=== PATIENT | female | born 1965 | race Caucasian/White ===

== ENCOUNTER → 2017-08-13 06:53 | Outpatient (CLI) | payer OTHER, SELFPAY ==
--- NOTE | 2017-08-13 06:59 | BI_ITS ---
MAMMOGRAPHY - BILATERAL SCREENING REASON FOR EXAM: Female, 52 years old. Routine annual screening examination. PERTINENT HISTORY: Non-contributory. TECHNIQUE: Digital bilateral breast gen (3D mammographic acquisition) in the CC and MLO projections. 2-D mediolateral oblique (MLO) and craniocaudad (CC) views of both breasts were obtained. CAD: Full Field Digital Mammography with Computer Added Detection was performed. COMPARISON: Comparison is made with prior study dated April 06, 2016 and August 08, 2014. FINDINGS: Breast Composition: There are scattered areas of fibroglandular density. There are no dominant masses or suspicious calcifications. No other significant abnormalities are identified. There has been no significant change since the prior study. BI/SCREENING MAMM (CAD), BILAT IMPRESSION: Stable bilateral screening mammogram. Yearly follow-up mammogram recommended. (A) ASSESSMENT CATEGORY: BIRADS Category 1: Negative. A letter regarding these results will be sent to the patient by the facility within 30 days. Approximately 10% of breast cancers are not detected by mammography. A normal mammogram should not delay biopsy of a clinically suspicious abnormality. [id number] Electronically Signed: Immanuel Evans MD at 7:47 EDT Tel [phone], Service support ,
== END ==
PROVIDERS: Family Provider Family Medicine; PCP Family Medicine; Visit Provider Obstetrics & Gynecology
DX: Z12.31 Encounter for screening mammogram for malignant neoplasm of breast (principal)
CPT/HCPCS: 77063; 77067

== ENCOUNTER 2017-11-16 15:54 | Emergency (ER) | payer OTHER, SELFPAY ==
[2017-11-16 15:54] VITALS: BP 161/70; PULSE 74; RESP 20; TEMP 36.9; O2SAT 100; BMI 38.0
[2017-11-16 16:33] VITALS: BP 141/74; PULSE 67; RESP 16; O2SAT 100
--- NOTE | 2017-11-16 16:43 | RAD_ITS ---
STUDY: X-RAY - RIGHT KNEE REASON FOR EXAM: Female, 52 years old. Fall, pain. TECHNIQUE: 4 view(s) of the knee. COMPARISON: 3 views of the right knee April 28, 2016. FINDINGS: There is periarticular spurring of the femoral condyles. There is stable mild spurring of the tibial spines and tibial plateaus. Normal visualized proximal fibula. There is stable periarticular spurring of the patella. A sagittal, chronic appearing fracture line is seen to the mid body of the patella, with a few millimeters of distraction between the fracture fragments. There may be a second longitudinal fracture line through the medial aspect of the patella, also with mild distraction. There is a stable mild degenerative valgus deformity is stable mild lateral subluxation of the tibia relative to the femur. Normal medial femorotibial compartment. Normal lateral femorotibial compartment. There is stable moderately severe degenerative arthrosis of the patellofemoral articulation. There is a soft tissue prominence in the suprapatellar region suggesting a small volume joint effusion. There is minor prepatellar superficial soft tissue swelling. RAD/Knee 4 or More Views IMPRESSION: 1. Degenerative changes of the right knee again noted, most prominent in the femoropatellar compartment. There is also stable mild lateral subluxation of the tibia relative to the femur and a mild degenerative valgus deformity. 2. There are chronic appearing mildly distracted longitudinal fracture lines through the mid body and medial aspect of the patella, best seen on the sunrise view 3. Small suprapatellar joint effusion as well as mild superficial prepatellar soft tissue swelling suggested Electronically Signed: Arpit Domínguez MD at 17:45 EDT , Service support ,
--- NOTE | 2017-11-16 16:59 | RAD_ITS ---
STUDY: X-RAY - RIGHT ANKLE REASON FOR EXAM: Female, 52 years old. Injury and pain TECHNIQUE: Three view(s) of the ankle were obtained. COMPARISON: May 01, 2016 FINDINGS: Bones: There is cortical disruption in the medial malleolus. A plate and screws are again seen over the distal fibula. There is a small spur off the inferior calcaneus. Joints: The visualized joints are unremarkable. Soft tissues: There is moderate soft tissue swelling medially. There is minimal soft tissue swelling laterally. RAD/Ankle min 3 Views IMPRESSION: There is an acute nondisplaced fracture in the medial malleolus. Electronically Signed: Gemma Teran MD at 17:53 EDT Tel Direct: [phone], Service support ,
--- NOTE | 2017-11-16 17:09 | ED.DCSUM_ITS ---
- ER Visit Summary Date of Service: 11/16/17 Chief Complaint: Right ankle pain History of Present Illness: The patient is a 52 F presenting after fall. Patient states that she rolled her right ankle and fell to the ground. She did not hit her head or lose consciousness. She complains of right ankle and right knee pain. She denies other injuries. Physical Examination: Vitals are stable. Patient is afebrile. Alert no acute distress. HEENT exam is unremarkable. Lungs are clear and equal bilaterally. Heart is regular rate and rhythm. Extremities medial and lateral malleolar tenderness, swelling. No Achilles tendon tenderness. No fifth metatarsal tenderness. Right medial knee tenderness with active full range of motion. Skin is warm and dry. No focal neurologic deficit. Remainder of exam is unremarkable. Emergency Department Course and Treatment: Right knee xray shows degenerative changes of the right knee again noted, most prominent in the femoropatellar compartment. There is also stable mild lateral subluxation of the tibia relative to the femur and a mild degenerative valgus deformity. There are chronic appearing mildly distracted longitudinal fracture lines through the mid body and medial aspect of the patella, best seen on the sunrise view. Small suprapatellar joint effusion as well as mild superficial prepatellar soft tissue swelling suggested. Right ankle xray shows an acute nondisplaced fracture in the medial malleolus. Patient is put in an Ortho-Glass splint. She is advised nonweightbearing and given crutches. She is given a prescription for Lowber. She is discussed with Dr. Murry and will follow-up in his office. Advised to return to ED for worsening complaints. Disposition: Discharge home Impression: Right medial malleolar fracture status post fall This note was generated with [employer] dictation software. It may contain incorrect words, spelling, and punctuation that were not noted in review of the chart prior to signing ED Disposition - Plan for ED Patient: Chief Complaint: Lower Extremity Injury Referrals: Tre Kim [Primary Care Provider] -
[2017-11-16] MEDS: HYDROcodone Bitartrate/Apap 5/325 Tablet PO (18:08)
--- NOTE | 2017-11-16 19:09 | ED.DEP ---
ED Disposition - Plan for ED Patient: Chief Complaint: Lower Extremity Injury Instructions: ED Fx Ankle General Prescriptions: Hydrocodone Bitart/Apap 5-325 [Zenia 5MG-325MG] 1 tablet PO Q6H PRN PRN 3 Days #10 tablet PRN Reason: Pain Referrals: Tre Kim [Primary Care Provider] - Donato Murry MD [STAFF PHYSICIAN] -
--- NOTE | 2017-11-16 19:11 | DCINST.ED_ITS ---
ED Disposition - Plan for ED Patient: Chief Complaint: Lower Extremity Injury Instructions: ED Fx Ankle General Prescriptions: Hydrocodone Bitart/Apap 5-325 [Watrous 5MG-325MG] 1 tablet PO Q6H PRN PRN 3 Days # 10 tablet PRN Reason: Pain Referrals: Tre Kim [Primary Care Provider] - Donato Murry MD [STAFF PHYSICIAN] -
[2017-11-16 19:31] VITALS: BP 146/97; PULSE 92; RESP 14; O2SAT 96
== END 2017-11-16 19:33 | disposition home or self-care (01) ==
LOC: ED 19:14
PROVIDERS: Emergency Provider Emergency Medicine; Family Provider Family Medicine; PCP Family Medicine
DX: S82.51XA Displaced fracture of medial malleolus of right tibia, initial encounter for closed fracture (principal); X50.1XXA Overexertion from prolonged static or awkward postures, initial encounter; Y93.9 Activity, unspecified; Y92.9 Unspecified place or not applicable; Y99.9 Unspecified external cause status
CPT/HCPCS: 73564; 73610; 99283

== ENCOUNTER → 2018-01-09 06:32 | Outpatient (CLI) | payer OTHER, SELFPAY ==
--- NOTE | 2018-01-09 06:43 | MRI_ITS ---
STUDY: MRI RIGHT KNEE REASON FOR EXAM: Anterior knee pain and swelling, fall 2 months ago. TECHNIQUE: Standardized fat and water weighted pulse sequences were obtained in all 3 orthogonal planes. COMPARISON: Radiographs 11/16/2017. FINDINGS: Normal medial meniscus. Normal hyaline cartilage of the medial femorotibial compartment. There are small marginal osteophytes of the medial femorotibial compartment. Normal medial femoral condyle and tibial plateau. Normal medial collateral ligamentous complex (MCL). Normal distal semimembranosus, gracilis and semitendinosus tendons. Normal lateral meniscus. Normal hyaline cartilage of the lateral femorotibial compartment. There is a bone contusion of the lateral femoral condyle (T2 sagittal images 6-9). Normal proximal tibiofibular articulation. Normal lateral collateral (fibular) ligament. Normal popliteus tendon. Normal biceps femoris tendon. Normal anterior cruciate ligament (ACL). Normal posterior cruciate ligament (PCL). There is lateral subluxation of the patella (T2 axial image 11). There is advanced arthrosis of the patellofemoral compartment with marginal osteophytes, chondral loss (T2 sagittal image 7) and subchondral cystic change of the lateral femoral trochlea. There is postoperative scarring of the medial patellar retinaculum and ossification at the medial aspect of the patella (proton density coronal images 26-28). Normal quadriceps tendon. Normal patellar tendon. Normal Hoffa's fat pad. There is a small joint effusion. There is a very small popliteal cyst (T2 sagittal image 17). There is edema in the anterior subcutis adipose space. There is a nondisplaced fracture of the patella with bone edema (T2 coronal images 25-27; T2 axial images 8-13). There is a small bone contusion of the head of the fibula (T2 sagittal images 5, 6). MRI/Lower Ext Joint Only (Routine) IMPRESSION: Nondisplaced patellar fracture with bone edema. Bone contusion of the lateral femoral condyle and small bone contusion of the head of the fibula. Patellofemoral arthrosis. Lateral subluxation of the patella. Small joint effusion. Very small popliteal cyst. Postoperative changes of the medial patellar retinaculum and ossification adjacent to the medial aspect of the patella. Electronically Signed: Robert Lopez MD at 9:47 EST Tel , Service support ,
== END ==
PROVIDERS: Family Provider Family Medicine; PCP Family Medicine; Referring Provider Family Medicine; Visit Provider Family Medicine
DX: M23.91 Unspecified internal derangement of right knee (principal)
CPT/HCPCS: 73721

== ENCOUNTER → 2018-09-22 07:22 | Outpatient (CLI) | payer OTHER, SELFPAY ==
--- NOTE | 2018-09-22 07:26 | BI_ITS ---
MAMMOGRAPHY - BILATERAL SCREENING REASON FOR EXAM: Female, 53 years old. Routine annual screening examination. PERTINENT HISTORY: Non-contributory. TECHNIQUE: Digital bilateral breast aaron (3D mammographic acquisition) in the CC and MLO projections. 2-D mediolateral oblique (MLO) and craniocaudad (CC) views of both breasts were obtained. CAD: Full Field Digital Mammography with Computer Added Detection was performed. COMPARISON: Comparison is made with prior study dated August 13, 2017 and April 06, 2016. FINDINGS: Breast Composition: There are scattered areas of fibroglandular density. There are no dominant masses or suspicious calcifications. Stable small bilateral axillary lymph nodes. No other significant abnormalities are identified. There has been no significant change since the prior study. BI/SCREEN MAMM (CAD) W/AARON BILAT IMPRESSION: Stable bilateral screening mammogram. Yearly follow-up mammogram recommended. (A) ASSESSMENT CATEGORY: BIRADS Category 2: Benign. A letter regarding these results will be sent to the patient by the facility within 30 days. Approximately 10% of breast cancers are not detected by mammography. A normal mammogram should not delay biopsy of a clinically suspicious abnormality. [id number] Electronically Signed: Immanuel Evans, at 9:10 EDT , Service support ,
== END ==
PROVIDERS: Family Provider Family Medicine; PCP Family Medicine; Referring Provider Obstetrics & Gynecology; Visit Provider Obstetrics & Gynecology
DX: Z12.31 Encounter for screening mammogram for malignant neoplasm of breast (principal)
CPT/HCPCS: 77063; 77067

== ENCOUNTER → 2019-10-21 16:38 | Outpatient (CLI) | payer OTHER, SELFPAY ==
[2019-10-26 14:44] LABS: HPV APTIMA, High Risk Negative (Negative); HPV Reflexed? YES, CHARGE PATIENT
== END ==
PROVIDERS: PCP Family Medicine; Visit Provider Student in an Organized Health Care Education/Training Program
DX: Z12.4 Encounter for screening for malignant neoplasm of cervix (principal)
CPT/HCPCS: 87624; 88175; G0145

== ENCOUNTER → 2019-11-11 07:12 | Outpatient (CLI) | payer OTHER, SELFPAY ==
--- NOTE | 2019-11-11 07:14 | BI_ITS ---
MAMMOGRAPHY - BILATERAL SCREENING REASON FOR EXAM: Female, 54 years old. Routine annual screening examination. PERTINENT HISTORY: Non-contributory. TECHNIQUE: Digital bilateral breast aaron (3D mammographic acquisition) in the CC and MLO projections. 2-D mediolateral oblique (MLO) and craniocaudad (CC) views of both breasts were obtained. CAD: Full Field Digital Mammography with Computer Added Detection was performed. COMPARISON: Comparison is made with prior study dated 09/22/2018 and 08/13/2017. FINDINGS: Breast Composition: There are scattered areas of fibroglandular density. There are no dominant masses or suspicious calcifications. Stable small benign-appearing bilateral axillary lymph nodes. No other significant abnormalities are identified. There has been no significant change since the prior study. BI/SCREEN MAMM (CAD) W/AARON BILAT IMPRESSION: Stable bilateral screening mammogram. Yearly follow-up mammogram recommended. (A) ASSESSMENT CATEGORY: BIRADS Category 2: Benign. A letter regarding these results will be sent to the patient by the facility within 30 days. Approximately 10% of breast cancers are not detected by mammography. A normal mammogram should not delay biopsy of a clinically suspicious abnormality. [id number] Electronically Signed: Immanuel Evans, at 8:45 EDT , Service support ,
== END ==
PROVIDERS: PCP Family Medicine; Referring Provider Student in an Organized Health Care Education/Training Program; Visit Provider Student in an Organized Health Care Education/Training Program
DX: Z12.31 Encounter for screening mammogram for malignant neoplasm of breast (principal)
CPT/HCPCS: 77063; 77067

== ENCOUNTER → 2020-02-01 10:16 | Outpatient (CLI) | payer OTHER, SELFPAY | PROVIDERS: PCP Family Medicine; Visit Provider Family Medicine | DX: R39.15 Urgency of urination (principal) | CPT/HCPCS: 87077; 87086; 87088; 87186 ==

== ENCOUNTER → 2020-03-23 09:18 | Outpatient (CLI) | payer OTHER, SELFPAY | LOC: MFPLAB 09:19 → LABSPEC 09:20 | PROVIDERS: PCP Family Medicine; Referring Provider Family Medicine; Visit Provider Family Medicine | DX: N39.0 Urinary tract infection, site not specified (principal) | CPT/HCPCS: 87086; 87088 ==

== ENCOUNTER → 2020-05-16 10:44 | Outpatient (CLI) | payer OTHER, SELFPAY ==
[2020-05-16 12:07] LABS: Color, Urine Amber (Yellow); Glucose, Dipstick Normal (Normal); Ketone-Dipstick Negative (Negative); Leukocyte Esterase-Dipstick 25 /ul (Negative); Nitrite-Dipstick Positive (Negative); Occult Blood-Urine 250 /ul (Negative); Protein-Dipstick 30 mg/dl (Negative); Urine Clarity Sl. Cloudy (Clear); Urine Urobilinogen 12 mg/dl (Normal)
[2020-05-16 12:09] LABS: Urine Bilirubin Dipstick 6 mg/dL (Negative)
[2020-05-16 12:14] LABS: Red Blood Cells-Urine 10-25 SEEN /hpf (0-5); Squamous Epithelial Cells - UA 0-5 SEEN /hpf (5-10); White Blood Cells 0-5 SEEN /hpf (0-5)
[2020-05-16 12:15] LABS: Bacteria 1+ /hpf (None Seen); Mucous, Urine RARE /hpf (<or=2+)
== END ==
PROVIDERS: PCP Family Medicine; Visit Provider Family Medicine
DX: N39.0 Urinary tract infection, site not specified (principal)
CPT/HCPCS: 81001; 87086

== ENCOUNTER 2020-08-18 05:47 | Day surgery (SDC) | payer OTHER, SELFPAY ==
[2020-08-14 14:45] LABS: Hematocrit 39.8 % (37-47); Hemoglobin 12.7 g/dL (12.0-15.0); Mean Corp Hgb Conc 31.9 g/dL (32-36); Mean Corpuscular Hgb 27.5 pg (27.0-32.0); Mean Corpuscular Volume 86.3 fL (81-99); Mean Platelet Vol. 9.4 fl (6.2-12.0); Platelet Count 356 K/mm3 (150-450); RBC Distribution Width SD 43.8 fl (35.1-43.9); Red Blood Count 4.61 M/mm3 (4.2-5.4); White Blood Count 9.4 K/mm3 (4.4-11.0)
--- NOTE | 2020-08-17 18:21 | HP.PCM.OB_ITS ---
History and Physical Date of Admission: 08/18/20 HISTORY OF PRESENT ILLNESS: On 08/14/2020, Radha Naylor, a 55 year old female 1 0 0 0 1, presented for: hysteroscopy, dilation and curettage, polyectomy on 08-18-20 for postmenopausal bleeding, endometrial polyps. MEDICAL HISTORY: 1. Hypertension ALLERGIES: Bactrim, Skin rash, Bactrim, Skin irritation, Lamisil and Rash MEDICATIONS HISTORY: 1. mvi, adult no.1 with vit K 1-5-10-200 bu-kjq-iz-mg Solution, 1 po qd 2. lisinopril 20 mg tablet, One tablet by mouth once daily PAST HISTORY: Anemia, Rosacea, Hypertension SURGICAL HISTORY: 1. [place] Teeth Removal 2. 07/25/2016 rotator cuff surgery 3. 04/24/2016 right wrist 4. 04/24/2016 right ankle 5. 06/19/2016 ACL surgery right knee MENSTRUAL HISTORY: LMP Known?- Postmenopausal, LMP - 11/15/15, Age Onset Menarche - 10 PAST PREGNANCIES: Total Pregnancies - 1; Full Term Pregnancies - 1; Premature - 0; Abortions, Induced - 0; Abortions, Spontaneous - 0; Ectopics - 0; Multiple Births - 0; Living Children - 1 FAMILY HISTORY: Father - Heart disorder; Mother - FH: Hypertension; Aunt - Type 2 Diabetes; SOCIAL HISTORY: Alcohol Use - RARELY Smoking - denies smoking Drugs - denies REVIEW OF SYSTEMS: GENERAL - Denies fever, or chills SKIN - Denies skin changes EYES - Denies visual changes EARS - Denies difficulty hearing NOSE - Denies nasal congestion or bleeding MOUTH - Denies sore throat or difficulty swallowing NECK - Denies pain or swelling RESPIRATORY - Denies shortness of breath or wheezing CARDIOVASCULAR - Denies palpitations or chest pain GASTROINTESTINAL - Denies nausea, vomiting, diarrhea, constipation GENITOURINARY - PMB MUSCULOSKELETAL - Denies joint or muscle pain NEUROLOGICAL - Denies localized numbness or weakness PSYCHIATRIC - Denies depression or anxiety ENDOCRINE - Denies heat or cold intolerance, weight loss or gain HEMATO-IMMUNOLOGIC - Denies excesive bleeding with cuts BP- 148/88 Sitting, Right arm, large cuff Weight- 234.00 lbs Height- 63.50 inch BMI:40.89 CONSTITUTIONAL - NAD, well nourished, and well developed SKIN - No rash, lesions, or ulcers HEENT - Normocephalic, PERRLA, EOMI NECK - No nodes, no nuchal rigidity and thyroid normal size and texture LYMPH NODES - Palpation of lymph nodes in neck and groins within normal limits LUNGS - CTA x2 without wheezes, crackles or rales CARDIAC - Regular rate and rhythm without rubs, murmurs, or gallops ABDOMEN - Without hepatosplenomegaly, distention, masses, rebound, or guarding; normal bowel sounds; no hernias EXTREMITIES - No edema or calf tenderness NEUROLOGICAL - Cranial nerves II-XII grossly intact PSYCHIATRIC - A and O to time, place, person, mood and affect ASSESSMENT/PLAN BY DIAGNOSIS: 1. Postmenopausal Bleeding PMB after use of estradiol cream x2 (not last time) after starting about 7w ago.. US today thickened ES with possible 2 polyps. Cervix stenotic on exam, no other Due to thickness of ES and polyps. Will plan surgical managemtn. Hysteroscopy, D, polypectomy with symphion Risks include, but are not limited to: risk of bleeding to the point of transfusion, infection, injury to surrounding tissue including bowel/ bladder/uterine perforation, VTE, ICU admission. Pt consented, all questions answered
[2020-08-18 06:24] VITALS: BP 146/88; PULSE 65; RESP 18; TEMP 36.3; O2SAT 99; BMI 41.5
[2020-08-18] MEDS: Lactated Ringers 1,000 ML 100 ML IV (06:31)
--- NOTE | 2020-08-18 07:30 | EMB_PTH ---
PATIENT: MALICK IBRAHIM LOC: [facility] – [place] U#:[id number] AGE/SX: 55/F ROOM: RE08/18/[address]: Dr. Galina Jarrell DO : 1965 BED: DIS: 08/18/2020 SPEC #: [id number] RECD: 08/18/20 10:35 STATUS: ANDREA REEstrada #: [id number] KJ: 08/18/20 07:[address]: Galina Jarrell DEPT: SURGICAL PATHOLOGY RECD BY: Emmy Todd ENTERED: 08/18/20 11:01 SP TYPE: ENDOM BX/C ALON DR: Dr. Se Mott MD Tissues: Endometrium, NOS Procedures: Surgery Specimen Level IV HEADER OPERATION: Hysteroscopy, D & C, polypectomy, Symphion PRE-OP DIAGNOSIS: Postmenopausal bleeding TISSUE SUBMITTED: Endometrial curettings and polyp MICROSCOPIC DIAGNOSIS Endometrial curettings and polyp: Polypoid fragments of endometrium, may represent fragments of endometrial polyp with simple endometrial hyperplasia without atypia. Fragments of myometrium. SJ:rg 08/21/2020 COMMENT Case has been reviewed in consultation with Dr. Pugh who concurs with the above diagnosis. IDC:AM MICROSCOPIC DESCRIPTION Slides are reviewed. GROSS DESCRIPTION Received in fixative is one container labeled with the patient's name and designated endometrial curettings and polyp. The specimen consists of multiple irregular fragments of goodman-pink soft tissue that in aggregate measure 2.5 x 1.5 x 0.3 cm. The specimen is totally submitted in one cassette. / AMINA:john 08/18/20 TC:5 CPT: 49838
--- NOTE | 2020-08-18 07:33 | PCM.OPRPT ---
Report of Operation Date of Procedure: 08/18/20 Pre-Operative Diagnosis: Post menopausal bleeding, Endometrial polyp Post-Operative Diagnosis: Post menopausal bleeding, Endometrial polyp, cervical stenosis Surgery/Procedure Performed:: Hysteroscopy, cervical dilation, polypectomy with Symphion device Description of Surgical Findings:: Normal-appearing external genitalia. No uterine descensus. Cervix flush against the top of the vagina with cervical stenosis. Endometrial polyp originating the anterior endometrial wall. Bilateral tubal ostia noted. Type of Anesthesia: MAC Specimen's removed: endometrial polyp Estimated Blood Loss (mL): 10cc Fluids Replaced: 600cc Description of Procedure: Indications, risks and benefits: 55-year-old female with postmenopausal bleeding and endometrial polyp plan for hysteroscopy, dilation and curettage, polypectomy. All risk, benefits, alternatives discussed with the patient. Risks include but are not limited to: Risk of bleeding to the point of transfusion, infection, injury to surrounding tissue including bowel or bladder or uterine perforation, VTE, ICU admission. Patient aware and consented. Procedure: Patient taken to the operating room, MAC anesthesia induced. Placed in the dorsal lithotomy position. Prepped and draped in the usual sterile fashion, bladder drained. Weighted speculum placed in the posterior vagina and Scott retractor placed in the anterior vagina, unable to visualize cervix. Retractors removed, cervix palpated with exam. Scott retractor then placed in the posterior vagina and [place] retractor placed anterior vagina. Visualization of the cervix noted the cervix appearing flush with the top of the vagina. Difficulty identifying cervical os. Small dimple noted in the cervix. Unable to pass dilator through. Tonsil used to open cervical os with old dark blood upon opening. Dilators then were able to pass with ease through the opening to the cervix. Hysteroscope placed through the cervical canal and visualization of the endometrium was completed. Symphion device utilized to remove endometrial polyp. After removal endometrium appeared thin. Fluid loss from Symphion 300cc Complications None
--- NOTE | 2020-08-18 07:34 | PCM.DC ---
Discharge Instructions Diet Discharge Diet: No restrictions Activity Discharge Activity: Return to Normal Activity May resume sexual activity in: 1-2 weeks Weight Bearing Status: Weight bearing as tolerated Lifting Restrictions: None Dressing / Incision Call your doctor if you observe: Fever of 101 or Higher, Inability to urinate, Using more than 1 pad per hour, Shortness of breath, Dizziness, Fainting spells, Swelling in the ankles, Chest pain and Calf discomfort Cleanse incision/area with: Soap & Water Follow Up Care Please Follow Up With: Galina Jarrell DO When: 2 week post op Test Results: Test results from this visit will be discussed in further detail at your follow-up appointment, if applicable. Discharge Plan Admission Primary Reason for Your Visit: Hysteroscopy, dilation and curettage Attending Provider: Galina Jarrell Primary Care Provider: Se Mott Discharge Orders/Prescriptions Prescriptions: No Action multivitamin with folic acid [Thera] 1 TABLET tablet 1 tab PO DAILY RF: 0 lisinopril-hydrochlorothiazide 20-12.5 mg Tablet 1 tab PO BID RF: 0 estradiol 0.01 % (0.1 mg/gram) Cream 1 appful VAGINAL TAYLOR RF: 0 Referrals / Follow Up: Se Mott MD [Primary Care Provider] - Disposition Disposition (needs filled in before D/C Order can be placed): Home, Self Care
[2020-08-18 08:19] VITALS: BP 130/74; BP 144/88; PULSE 73; RESP 18; TEMP 36.7; O2SAT 97
[2020-08-18 08:25] VITALS: BP 127/76; BP 144/88; PULSE 59; RESP 18; O2SAT 99
[2020-08-18 08:30] VITALS: BP 132/77; BP 144/88; PULSE 59; RESP 18; O2SAT 99
[2020-08-18 08:35] VITALS: BP 139/80; BP 144/88; PULSE 59; RESP 18; TEMP 36.9; O2SAT 98
[2020-08-18 09:15] VITALS: BP 144/88; BP 157/80; PULSE 58; RESP 16; TEMP 36.4; O2SAT 100
== END 2020-08-18 09:24 | disposition home or self-care (01) ==
LOC: SDC 05:49 → AC 05:49
PROVIDERS: PCP Family Medicine; Referring Provider Student in an Organized Health Care Education/Training Program; Visit Provider Student in an Organized Health Care Education/Training Program
PROC: 0UB98ZZ Excision of Uterus, Via Natural or Artificial Opening Endoscopic (ICD-10-PCS; CPT 58558; principal; 2020-08-18 07:15)
DX: N95.0 Postmenopausal bleeding (principal); M48.02 Spinal stenosis, cervical region; N84.0 Polyp of corpus uteri; I10 Essential (primary) hypertension; Z79.899 Other long term (current) drug therapy; Z82.49 Family history of ischemic heart disease and other diseases of the circulatory system; Z83.3 Family history of diabetes mellitus; Z88.1 Allergy status to other antibiotic agents; Z88.3 Allergy status to other anti-infective agents
CPT/HCPCS: 00952; 58558; 36415; 85027; 86850; 86900; 86901; 87426; 88305; C9803; J7120

== ENCOUNTER → 2020-11-20 07:11 | Outpatient (CLI) | payer OTHER, SELFPAY ==
--- NOTE | 2020-11-20 07:13 | BI_ITS ---
MAMMOGRAPHY - BILATERAL SCREENING REASON FOR EXAM: Female, 55 years old. Routine annual screening examination. PERTINENT HISTORY: Non-contributory. TECHNIQUE: Digital bilateral breast aaron (3D mammographic acquisition) in the CC and MLO projections. 2-D mediolateral oblique (MLO) and craniocaudad (CC) views of both breasts were obtained. CAD: Full Field Digital Mammography with Computer Added Detection was performed. COMPARISON: Comparison is made with prior examination dated 11/11/2019 and 09/22/2018. FINDINGS: Breast Composition: There are scattered areas of fibroglandular density. There are no dominant masses or suspicious calcifications. No other significant abnormalities are identified. There has been no significant change since the prior study. BI/SCRN MAMM (CAD)W/AARON BILAT IMPRESSION: Stable bilateral screening mammogram. Yearly follow-up mammogram recommended. (A) ASSESSMENT CATEGORY: BIRADS Category 1: Negative. A letter regarding these results will be sent to the patient by the facility within 30 days. Approximately 10% of breast cancers are not detected by mammography. A normal mammogram should not delay biopsy of a clinically suspicious abnormality. [id number] Electronically Signed: Immanuel Evans MD at 8:37 EDT , Service support ,
== END ==
PROVIDERS: PCP Family Medicine; Referring Provider Student in an Organized Health Care Education/Training Program; Visit Provider Student in an Organized Health Care Education/Training Program
DX: Z12.31 Encounter for screening mammogram for malignant neoplasm of breast (principal)
CPT/HCPCS: 77063; 77067

== ENCOUNTER → 2021-01-17 09:27 | Outpatient (CLI) | payer OTHER, SELFPAY ==
[2021-01-17 12:38] LABS: ALB/GLOB Ratio 0.7 RATIO (0.9-2.4); AST(SGOT) 23 U/L (15-37); Alanine Aminotransfer ALT/SGPT 28 U/L (13-56); Albumin, Serum 3.3 g/dL (3.2-5.0); Alkaline Phosphatase 68 U/L (45-117); Anion Gap 10 (5-15); BUN 13 mg/dL (7-18); BUN/Creat Ratio 14.6 RATIO (10-20); Calcium,Total 8.8 mg/dL (8.5-10.1); Chloride 100 mmol/L (98-107); Cholesterol 167 mg/dL (200); Creatinine, Serum 0.89 mg/dL (0.55-1.02); EST Glomerular Filtration Rate 70 mL/min (>60); Est Glom Filt Rate - Afr Amer 84 mL/min (>60); Globulin 4.7 g/dL (2.2-4.2); Glucose 92 mg/dL (74-106); High Density Lipoprotein 55 mg/dL; Potassium 3.7 mmol/L (3.5-5.1); Sodium Level 137 mmol/L (136-145); Triglycerides 96 mg/dL; Very Low Density Lipoprotein 19 mg/dL (5-40)
== END ==
PROVIDERS: PCP Family Medicine; Referring Provider Family Medicine; Visit Provider Family Medicine
DX: I10 Essential (primary) hypertension (principal)
CPT/HCPCS: 36415; 80053; 80061

== ENCOUNTER 2021-01-25 08:20 | Day surgery (SDC) | payer OTHER, SELFPAY ==
[2021-01-25] VITALS (8 sets, daily range): BP systolic 112–154; BP diastolic 72–93; PULSE 60–82; RESP 16; TEMP 36.2–36.8; O2SAT 94–98; BMI 42.1
--- NOTE | 2021-01-25 07:19 | PCM.HP.BLA ---
History and Physical Date of Admission: 01/25/21 HISTORY OF PRESENT ILLNESS: On 01/23/2021, Radha Naylor, a 55 year old female 1 0 0 0 1, presented for hysteroscopy dilation and curettage for benign endometrial hyperplasia. MEDICAL HISTORY: Hypertension ALLERGIES: Bactrim, Skin rash, Bactrim, Skin irritation, Lamisil and Rash MEDICATIONS HISTORY: 1. mvi, adult no.1 with vit K 1-5-10-200 wv-vxg-tp-mg Solution, 1 po qd 2. lisinopril 20 mg tablet, One tablet by mouth once daily SURGICAL HISTORY: 1. [place] Teeth Removal 2. 08/18/2020 hysteroscopy, D and C, Symphion polypectomy Galina Jarrell DO 3. 07/25/2016 rotator cuff surgery 4. 04/24/2016 right wrist 5. 04/24/2016 right ankle 6. 06/19/2016 ACL surgery right knee MENSTRUAL HISTORY: Postmenopausal, LMP - 11/15/15 PAST PREGNANCIES: Total Pregnancies - 1; Full Term Pregnancies - 1; Premature - 0; Abortions, Induced - 0; Abortions, Spontaneous - 0; Ectopics - 0; Multiple Births - 0; Living Children - 1 FAMILY HISTORY: noncontributory SOCIAL HISTORY: Alcohol Use - RARELY Smoking - denies smoking Drugs - denies REVIEW OF SYSTEMS: GENERAL - Denies fever, or chills SKIN - Denies skin changes EYES - Denies visual changes EARS - Denies difficulty hearing NOSE - Denies nasal congestion or bleeding MOUTH - Denies sore throat or difficulty swallowing NECK - Denies pain or swelling RESPIRATORY - Denies shortness of breath or wheezing CARDIOVASCULAR - Denies palpitations or chest pain GASTROINTESTINAL - Denies nausea, vomiting, diarrhea, constipation GENITOURINARY - PMB MUSCULOSKELETAL - Denies joint or muscle pain NEUROLOGICAL - Denies localized numbness or weakness PSYCHIATRIC - Denies depression or anxiety ENDOCRINE - Denies heat or cold intolerance, weight loss or gain HEMATO-IMMUNOLOGIC - Denies excessive bleeding with cuts PHYSICAL EXAMINATION BP- 110/78 Right forearm Weight- [id number] lbs Height- 63.5 inch BMI:41.74 CONSTITUTIONAL - NAD, well nourished, and well developed SKIN - No rash, lesions, or ulcers HEENT - Normocephalic, PERRLA, EOMI LUNGS - CTA x2 without wheezes, crackles or rales CARDIAC - Regular rate and rhythm without rubs, murmurs, or gallops ABDOMEN - Without hepatosplenomegaly, distention, masses, rebound, or guarding; normal bowel sounds; no hernias EXTREMITIES - No edema or calf tenderness NEUROLOGICAL - Cranial nerves II-XII grossly intact PSYCHIATRIC - A and O to time, place, person, mood and affect ASSESSMENT/PLAN BY DIAGNOSIS: 1. Benign Endometrial Hyperplasia Pt had hysteroscopy with polypectomy with pathology: simple hyperplasia without atypia. Cervical stenosis is present, therefore endometrial biopsies cannot be completed in the office. Not tolerating progesterone and is not taking. Planned for hysteroscopy, dilation and curettage, possible polypectomy with symphion R/B/A discussed with patient. Risks include, but are not limited to: risk of bleeding to the point of transfusion, infection, injury to surrounding tissue (bowel/bladder/uterine perforation), VTE, ICU admission
[2021-01-25 09:14] LABS: Hematocrit 38.7 % (37-47); Hemoglobin 12.6 g/dL (12.0-15.0); Mean Corp Hgb Conc 32.6 g/dL (32-36); Mean Corpuscular Hgb 27.5 pg (27.0-32.0); Mean Corpuscular Volume 84.5 fL (81-99); Mean Platelet Vol. 8.8 fl (6.2-12.0); Platelet Count 313 K/mm3 (150-450); RBC Distribution Width CV 13.5 % (11.6-14.6); RBC Distribution Width SD 41.6 fl (35.1-43.9); Red Blood Count 4.58 M/mm3 (4.2-5.4); White Blood Count 7.3 K/mm3 (4.4-11.0)
[2021-01-25] MEDS: Lactated Ringers 1,000 ML 15 ML IV (09:14)
--- NOTE | 2021-01-25 09:55 | EMB_PTH ---
PATIENT: MALICK IBRAHIM [place] [facility] [place][id number] AGE/SX: 55/F ROOM: RE01/25/[address]: Dr. Galina Jarrell DO : 1965 BED: DIS: 01/25/2021 SPEC #: [id number] RECD: 01/25/21 12:57 STATUS: ANDREA REEstrada #: [id number] KJ: 01/25/21 09:[address]: Galina Jarrell DEPT: SURGICAL PATHOLOGY RECD BY: Emmy Todd ENTERED: 01/25/21 13:30 SP TYPE: ENDOM BX/C ALON DR: Dr. Nilesh Ritchie MD Tissues: Endometrium, NOS Procedures: Surgery Specimen Level IV HEADER OPERATION: Hysteroscopy, D & C PRE-OP DIAGNOSIS: Benign endometrial hyperplasia TISSUE SUBMITTED: Endometrial curettings MICROSCOPIC DIAGNOSIS Endometrial curettings: Proliferative endometrium. Negative for hyperplasia. SJ:john 01/26/2021 COMMENT Please make reference to previous specimen ([id number]) endometrial curettings and polyp with diagnosis of ?polypoid fragments of endometrium, may represent fragments of endometrial polyp with simple endometrial hyperplasia without atypia.? MICROSCOPIC DESCRIPTION Slides are reviewed. GROSS DESCRIPTION Received in fixative is one container labeled with the patient's name and designated endometrial curettings. The specimen consists of multiple irregular fragments of pink soft tissue mixed with mucoid tissue that in aggregate measure 3 x 2.5 x 0.2 cm. The specimen is totally submitted in one cassette. / SJ:rg 01/25/21 TC:4 CPT: 33505
--- NOTE | 2021-01-25 10:18 | PCM.OPRPT ---
Report of Operation Date of Procedure: 01/25/21 Pre-Operative Diagnosis: Benign endometrial hyperplasia, cervical stenosis Post-Operative Diagnosis: Benign endometrial hyperplasia, cervical stenosis Surgery/Procedure Performed:: Hysteroscopy, dilation and curettage, lysis of vaginal adhesion Description of Surgical Findings:: Normal external genitalia. Minimal uterine descensus. Small cervico-vaginal adhesion noted. No endometrial polyps noted therefore Symphion device not needed. Fluffy posterior endometrial wall. Grade 1 anterior prolapse. Type of Anesthesia: MAC Specimen's removed: Endometrial curettings Estimated Blood Loss (mL): 5cc Fluids Replaced: 700cc Description of Procedure: Indications/risk/benefits: 55-year-old female with history of benign endometrial hyperplasia and cervical stenosis plan for hysteroscopy, dilation and curettage. All risk, benefits, alternatives were discussed with the patient. Risks include but are not limited to: Risk of bleeding to the point of transfusion, infection, injury to surrounding tissue including bowel/bladder/uterine perforation, VTE, ICU mission. Patient aware and consented. Procedure: Patient taken to the operating room, MAC anesthesia induced. Patient placed in the dorsal lithotomy position and prepped and draped in the usual sterile fashion. Weighted speculum placed in the posterior vagina and cervix visualized using Scott retractor. Small adhesion from cervix to posterior vagina was noted and lysed with blunt dissection. Cervix grasped with single-tooth tenaculum. Cervix sequentially dilated. Hysteroscope placed through cervical canal and endometrium visualized with findings as above. Hysteroscope removed. Curettage completed in a 360? manner. Oozing noted along the cervix where the cervicovaginal adhesion had been hemostatic with pressure and Monsel's. Vagina hemostatic. At the end of the procedure all needle, lap, sponge counts were correct. UOP: 50cc Complications None
--- NOTE | 2021-01-25 10:43 | PCM.DC ---
Discharge Instructions Diet Discharge Diet: No restrictions Activity Discharge Activity: Return to Normal Activity and May Shower May resume sexual activity in: 2 weeks Weight Bearing Status: Weight bearing as tolerated Lifting Restrictions: None Dressing / Incision Call your doctor if you observe: Fever of 101 or Higher, Change in Color, Inability to urinate, Using more than 1 pad per hour, Shortness of breath, Dizziness, Swelling in the ankles, Chest pain and Calf discomfort Follow Up Care Please Follow Up With: Galina Jarrell DO When: 2 week post operative visit Test Results: Test results from this visit will be discussed in further detail at your follow-up appointment, if applicable. Discharge Plan Admission Primary Reason for Your Visit: Dilation and curettage Attending Provider: Galina Jarrell Primary Care Provider: Vinnie Ritchie Discharge Orders/Prescriptions Prescriptions: No Action multivitamin with folic acid [Thera] 1 TABLET tablet 1 tab PO DAILY RF: 0 lisinopril-hydrochlorothiazide 20-12.5 mg Tablet 1 tab PO BID RF: 0 estradiol 0.01 % (0.1 mg/gram) Cream 1 appful VAGINAL TAYLOR RF: 0 Referrals / Follow Up: Vinnie Ritchie MD [Primary Care Provider] - Disposition Disposition (needs filled in before D/C Order can be placed): Home, Self Care
[2021-01-25] MEDS: FERRIC SUBSULFATE 8 GM SOLN (11:04)
== END 2021-01-25 12:37 | disposition home or self-care (01) ==
LOC: SDC 08:21 → AC 08:22
PROVIDERS: PCP Family Medicine; Referring Provider Student in an Organized Health Care Education/Training Program; Visit Provider Student in an Organized Health Care Education/Training Program
PROC: 0UB98ZZ Excision of Uterus, Via Natural or Artificial Opening Endoscopic (ICD-10-PCS; CPT 58558; principal; 2021-01-25 09:40)
DX: N88.2 Stricture and stenosis of cervix uteri (principal); N81.4 Uterovaginal prolapse, unspecified; N89.5 Stricture and atresia of vagina; I10 Essential (primary) hypertension; Z79.899 Other long term (current) drug therapy; Z88.1 Allergy status to other antibiotic agents; Z88.3 Allergy status to other anti-infective agents
CPT/HCPCS: 00952; 58558; 58999; 85027; 86850; 86900; 86901; 87426; 88305; C9803; J7120

== ENCOUNTER 2021-03-05 07:58 | Outpatient (CLI) | payer OTHER, SELFPAY | END 2021-03-05 23:59 | disposition short-term general hospital (02) | LOC: LABSPEC 03-06 07:58 | PROVIDERS: PCP Family Medicine; Referring Provider Family Medicine; Visit Provider Family Medicine | DX: U07.1 COVID-19 (principal) | CPT/HCPCS: 87635; U0003; U0005 ==

== ENCOUNTER 2021-03-23 11:22 | Outpatient (CLI) | payer OTHER, SELFPAY | END 2021-03-23 23:59 | disposition short-term general hospital (02) | LOC: LABSPEC 11:23 | PROVIDERS: PCP Family Medicine; Visit Provider Student in an Organized Health Care Education/Training Program | DX: Z03.818 Encounter for observation for suspected exposure to other biological agents ruled out (principal) | CPT/HCPCS: 87635; U0003; U0005 ==

== ENCOUNTER 2021-03-29 05:53 | Day surgery (SDC) | payer OTHER, SELFPAY ==
--- NOTE | 2021-03-23 09:33 | EKG12_ITS ---
Test Reason : PREOP Blood Pressure : / mmHG Vent. Rate : 065 BPM Atrial Rate : 065 BPM P-R Int : 152 ms QRS Dur : 088 ms QT Int : 398 ms P-R-T Axes : 033 -19 012 degrees QTc Int : 413 ms Normal sinus rhythm Normal ECG Confirmed by MAGUE COATS, LANDON ([id number]), editorial specialist REN REID ([id number]) on 03/26/2021 10:01:24 A M Referred By: Galina Jarrell Confirmed By:PATRICIA BOWSER MD
[2021-03-23 11:06] LABS: Hematocrit 39.8 % (37-47); Hemoglobin 12.9 g/dL (12.0-15.0); Mean Corp Hgb Conc 32.4 g/dL (32-36); Mean Corpuscular Hgb 27.7 pg (27.0-32.0); Mean Corpuscular Volume 85.6 fL (81-99); Mean Platelet Vol. 9.1 fl (6.2-12.0); Platelet Count 364 K/mm3 (150-450); RBC Distribution Width CV 14.1 % (11.6-14.6); RBC Distribution Width SD 43.8 fl (35.1-43.9); Red Blood Count 4.65 M/mm3 (4.2-5.4); White Blood Count 5.7 K/mm3 (4.4-11.0)
[2021-03-23 11:28] LABS: Anion Gap 6 (5-15); BUN 14 mg/dL (7-18); BUN/Creat Ratio 15.9 RATIO (10-20); Calcium,Total 8.7 mg/dL (8.5-10.1); Chloride 102 mmol/L (98-107); Creatinine, Serum 0.88 mg/dL (0.55-1.02); EST Glomerular Filtration Rate 70 mL/min (>60); Est Glom Filt Rate - Afr Amer 85 mL/min (>60); Glucose 92 mg/dL (74-106); Magnesium 2.2 mg/dL (1.6-2.6); Potassium 3.6 mmol/L (3.5-5.1); Sodium Level 136 mmol/L (136-145)
[2021-03-29] VITALS (10 sets, daily range): BP systolic 86–151; BP diastolic 52–95; PULSE 46–85; RESP 16–18; TEMP 36.1–36.6; O2SAT 94–99; BMI 42.0
[2021-03-29 06:41] LABS: Bedside Glucose 103 mg/dL (70-110)
[2021-03-29] MEDS: Lactated Ringers 1,000 ML 40 ML IV ×2 (06:43→09:45)
[2021-03-29] MEDS: Acetaminophen 500 MG Tablet 1000 MG PO (06:44)
[2021-03-29] MEDS: Celecoxib 200 MG Capsule 400 MG PO (06:44)
[2021-03-29] MEDS: Gabapentin 600 MG Tablet PO (06:44)
--- NOTE | 2021-03-29 07:14 | HP.PCM.OB_ITS ---
History and Physical Date of Admission: 03/29/21 HISTORY OF PRESENT ILLNESS: On 03/23/2021, Radha Naylor, a 55 year old female 1 0 0 0 1, presented for total laparoscopic hysterectomy, bilateral salpingo-oophorectomy, cystoscopy for benign endometrial hyperplasia. Patient intolerant of progesterone. MEDICAL HISTORY: 1. Hypertension 2. Atrophic vaginitis 3. Benign endometrial hyperplasia ALLERGIES: Bactrim, Skin rash, Bactrim, Skin irritation, Lamisil and Rash MEDICATIONS HISTORY: 1. mvi, adult no.1 with vit K 1-5-10-200 lf-qgk-cz-mg Solution, 1 po qd 2. lisinopril 20 mg tablet, One tablet by mouth once daily 3. Estrogen cream, vaginal SURGICAL HISTORY: 1. 01/25/2021 hysteroscopy, D and C, lysis of vaginal adhesion Galina Jarrell DO 2. [place] Teeth Removal 3. 08/18/2020 hysteroscopy, D and C, Symphion polypectomy Galina Jarrell DO 4. 07/25/2016 rotator cuff surgery 5. 04/24/2016 right wrist 6. 04/24/2016 right ankle 7. 06/19/2016 ACL surgery right knee MENSTRUAL HISTORY: LMP Known?- Postmenopausal, LMP - 11/15/15, Age Onset Menarche - 10 PAST PREGNANCIES: Total Pregnancies - 1; Full Term Pregnancies - 1; Premature - 0; Abortions, Induced - 0; Abortions, Spontaneous - 0; Ectopics - 0; Multiple Births - 0; Living Children - 1 FAMILY HISTORY: Father - Heart disorder; Mother - FH: Hypertension; Aunt - Type 2 Diabetes; SOCIAL HISTORY: Alcohol Use - RARELY Smoking - denies smoking Drug Use - Denies REVIEW OF SYSTEMS: GENERAL - Denies fever, or chills SKIN - Denies skin changes EYES - Denies visual changes EARS - Denies difficulty hearing NOSE - Denies nasal congestion or bleeding MOUTH - Denies sore throat or difficulty swallowing NECK - Denies pain or swelling RESPIRATORY - Denies shortness of breath or wheezing CARDIOVASCULAR - Denies palpitations or chest pain GASTROINTESTINAL - Denies nausea, vomiting, diarrhea, constipation GENITOURINARY - 01/25/21 D no complaints voiced MUSCULOSKELETAL - Denies joint or muscle pain NEUROLOGICAL - Denies localized numbness or weakness PSYCHIATRIC - Denies depression or anxiety ENDOCRINE - Denies heat or cold intolerance, weight loss or gain HEMATO-IMMUNOLOGIC - Denies excessive bleeding with cuts BP- 128/78 right lower arm Weight- 237.66702932889919 lbs Height- 63.5 inch BMI:41.35 CONSTITUTIONAL - NAD, well nourished, and well developed SKIN - No rash, lesions, or ulcers HEENT - Normocephalic, PERRLA, EOMI LYMPH NODES - Palpation of lymph nodes in neck and groins within normal limits LUNGS - CTA x2 without wheezes, crackles or rales EXTREMITIES - No edema or calf tenderness NEUROLOGICAL - Cranial nerves II-XII grossly intact PSYCHIATRIC - A and O to time, place, person, mood and affect ASSESSMENT/PLAN: 1. Benign Endometrial Hyperplasia Pt had hysteroscopy with polypectomy with pathology: simple hyperplasia without atypia. Not tolerating progesterone and is not taking. Most recent D showed benign pathology Based on hx of simple hyperplasia without atypia - would need repeat EMBs every 6m. Not tolerating progesterone., As she has cervical stenosis and would need dilation and curettage in OR. Pt elects for definitive management at this time with [facility], cystoscopy R/B/A discussed with patient. Risks include, but are not limited to: risk of bleeding to the point of transfusion, infection, injury to surrounding tissue (bowel/bladder/uterine perforation), VTE, ICU admission
--- NOTE | 2021-03-29 07:16 | DCINST_ITS ---
Discharge Instructions Diet Discharge Diet: No restrictions Activity Discharge Activity: Return to Normal Activity and May Shower May resume sexual activity in: 6-8 weeks Weight Bearing Status: Weight bearing as tolerated Lifting Restrictions: No greater than 25 pounds Dressing / Incision Call your doctor if your incision/area has: Continuous Slow Oozing, Sudden Increased Bleeding, Increased Pain/ Swelling, Increased Redness and Foul Smelling Discharge Call your doctor if you observe: Fever of 101 or Higher, Change in Color, I nability to urinate, Using more than 1 pad per hour, Shortness of breath, Dizziness, Swelling in the ankles, Chest pain and Calf discomfort Cleanse incision/area with: Soap & Water Follow Up Care Please Follow Up With: Galina Jarrell DO When: 2 week post operative visit Test Results: Test results from this visit will be discussed in further detail at your follow-up appointment, if applicable. Discharge Plan Admission Primary Reason for Your Visit: Hysterectomy Attending Provider: Galina Jarrell Primary Care Provider: Vinnie Ritchie Discharge Orders/Prescriptions Prescriptions: New oxycodone 5 mg tablet 5 mg PO Q6H PRN (Reason: pain (scale score 7-10)) 5 Days Qty: 24 RF: 0 ondansetron HCl 4 mg tablet 4 mg PO Q6H PRN (Reason: nausea and vomiting) Qty: 30 RF: 0 Continued multivitamin with folic acid [Thera] 1 TABLET tablet 1 tab PO DAILY RF: 0 lisinopril-hydrochlorothiazide 20-12.5 mg Tablet 1 tab PO BID RF: 0 estradiol 0.01 % (0.1 mg/gram) Cream 1 appful VAGINAL TAYLOR RF: 0 zinc 50 mg Tablet 50 mg PO DAILY RF: 0 magnesium 250 mg Tablet 250 mg PO DAILY RF: 0 cholecalciferol (vitamin D3) [Vitamin D3] 25 mcg (1,000 unit) Tablet,Chewable 25 mcg PO DAILY RF: 0 Referrals / Follow Up: Vinnie Ritchie MD [Primary Care Provider] - Disposition Disposition (needs filled in before D/C Order can be placed): Home, Self Care
--- NOTE | 2021-03-29 07:30 | HYST_PTH ---
PATIENT: MALICK IBRAHIM LOC: [facility] [place] U#:[id number] AGE/SX: 56/F ROOM: RE03/29/[address]: Dr. Galina Jarrell DO : 1965 BED: DIS: 03/29/2021 SPEC #: [id number] RECD: 03/29/21 12:25 STATUS: ANDREA EMORY #: [id number] KJ: 03/29/21 07:[address]: Galina Jarrell DEPT: SURGICAL PATHOLOGY RECD BY: Emmy Todd ENTERED: 03/29/21 13:15 SP TYPE: HYSTERECT OTHR DR: Dr. Nilesh Ritchie MD Tissues: Uterus, NOS Procedures: Surgery Specimen Level V HEADER OPERATION: ERAS, hysterectomy, TLH, BSO, cysto PRE-OP DIAGNOSIS: Benign endometrial hyperplasia TISSUE SUBMITTED: Cervix, uterus, bilateral fallopian tubes and ovaries MICROSCOPIC DIAGNOSIS Uterus, hysterectomy: Cervix ? squamous metaplasia and chronic inflammation and Nabothian cysts. Endometrium ? proliferative endometrium with focal cystic change. Myometrium ? adenomyosis and leiomyoma. Right and left ovaries ? corpora albicantia and focal benign inclusion cyst. Right and left fallopian tubes - no pathologic change. AM:john 04/02/2021 MICROSCOPIC DESCRIPTION Slides are reviewed. GROSS DESCRIPTION Received in fixative is one container labeled with the patient's name and designated uterus. The specimen consists of a uterus with attached cervix and attached right and left fallopian tubes and ovaries. The uterus with cervix measures 7 x 5 x 3.5 cm and weighs 60 gm. The ectocervix is grossly unremarkable. The cervical os is oval in contour. The endocervical canal measures 3 cm in length and is grossly unremarkable. The triangular endometrial cavity measures 3.5 x 3 cm. The velvety, reddish-goodman endometrium measures up to 0.2 cm in thickness. The myometrium measures 1.5 cm in average thickness and contains a rubbery, goodman nodule measuring 7 mm in the posterior myometrial wall. The crinkled, yellow right ovary measures 3 x 1.5 x 0.7 cm and is free of mass lesions. The adjacent fallopian tube measures 5 cm in length and 0.6 cm in average diameter. No tubo-ovarian adhesions are identified. The left ovary is similar in appearance to the right ovary and measures 3 x 1.5 x 1 cm and likewise does not contain mass lesions. The left fallopian tube is similar in appearance to the right fallopian tube and measures 6.2 cm in length and 0.7 cm in average diameter. Both fallopian tubes contain normal fimbriated ends. No tubo-ovarian adhesions are identified. Group Captain sections are submitted in nine cassettes as follows: 1 - anterior and posterior cervix (posterior inked black), 2-4 - anterior endometrium and adjacent myometrium, 5-7 - posterior endometrium and adjacent myometrium (#7 contains myometrial nodule), 8 - right fallopian tube and ovary, 9 - left fallopian tube and ovary. Note, the entire endometrium is submitted for microscopic examination. / AM: bryan 03/29/21 TC:1 CPT: 06134
[2021-03-29] MEDS: Cefazolin 2 GM in 0.9% Normal Saline 100 ML IV (07:33)
[2021-03-29] MEDS: Lubricating Jelly 60 GM Tube 30 GM (08:07)
--- NOTE | 2021-03-29 10:16 | PCM.OPRPT ---
Report of Operation Date of Procedure: 03/29/21 Pre-Operative Diagnosis: Benign Endometrial Hyperplasia Post-Operative Diagnosis: Benign Endometrial Hyperplasia Surgery/Procedure Performed:: Total Laparoscopic Hysterectomy, Bilateral Salpingo-oohprectomy, Cystoscopy Description of Surgical Findings:: Normal external genitalia. Cervix flush to vagina. Uterus sounded to 8 cm. Normal-appearing bilateral fallopian tubes and ovaries, uterus. No intra-abdominal adhesions. Surgeon: Galina Jarrell vp home health: Sandeep Jarrell Type of Anesthesia: General Specimen's removed: Uterus, cervix, bilateral tubes and ovaries Estimated Blood Loss (mL): 150cc Fluids Replaced: 1700cc Description of Procedure: Indications/risk/benefits. 56-year-old female with history of benign endometrial hyperplasia, intolerant to oral progesterone and with cervical stenosis plan for total laparoscopic hysterectomy bilateral salpingo-oophorectomy and cystoscopy. All risk, benefits, alternatives discussed with patient. Risks include but are not limited to: Risk bleeding to the point transfusion, infection, injury to surrounding tissue (bowel/bladder requiring prolonged Salas catheter use/major abdominal vessels), VTE, ICU admission. Patient aware and consented. Procedure: Patient taken to the operating room placed under general anesthesia. Patient placed in the dorsal lithotomy position and prepped and draped in the usual sterile fashion. Salas catheter placed. Weighted speculum placed in posterior vagina and Scott retractor used to visualize cervix. Anterior lip of the cervix grasped with single-tooth tenaculum and cervix sequentially dilated. Uterus sounded. Small manipulator placed after 1 [id number]-in-qvgja stitch placed through the cervix. Gloves changed and attention turned to the anterior abdominal wall. Supraumbilical vertical incision made with scalpel underlying subcutaneous tissue dissected away from the fascia using blunt dissection. Fascia grasped with 2 Moo clamps and incised medially with scalpel. Peritoneum then identified grasped with 2 Moo Yumiko clamps and incised medially with scalpel. Trocar placed. Abdomen insufflated. Left and right trocar incisions made and trochars placed under direct visualization. Fourth trocar placed in the left lower quadrant under direct visualization. Bilateral ureters identified. Left round ligament identified and dissected using monopolar cautery. Left IP ligament identified coagulated and incised. Dissection carried down towards the round ligament. Anterior leaf the broad ligament identified dissection using monopolar cautery taken down the anterior leaf of the broad ligament towards the vesicouterine peritoneum. Peritoneum posteriorly dissected away from the left side of the uterine vessels, skeletonizing them. Left uterine vessels coagulated and cut. Attention turned to the right side of the uterus. right round ligament incised using monopolar cautery. Right IP ligament coagulated in several locations and cut dissection on the right side carried down towards the right round ligament. Anterior leaf of the right side of the broad ligament dissected down towards the vesicouterine peritoneum. Bladder flap created anteriorly. Bladder further dissected away from the anterior cervix and uterus. Right uterine vessels identified and coagulated and cut. Further dissection of right and left uterine arteries completed allowing the uterine arteries to fall away from the colpotomy cup. Bladder flap further dissected away from the anterior cervix. Colpotomy then started posteriorly. Colpotomy then made anteriorly and carried around circumferentially. Uterus, cervix, tubes and ovaries removed through the vagina after colpotomy was completed. Pelvis suction irrigated. Insufflation stopped. Vaginal cuff then closed vaginally with running locking stitch from both left and right angles. Tied at midline. Vagina irrigated. Abdomen insufflated again. Pelvis suction irrigated. FloSeal placed along the vaginal cuff. Dissection beds hemostatic. Abdomen desufflated. Trochars removed. Cystoscopy was completed. Bladder dome intact. Bilateral ureteral jets noted. Right and left trocar skin incisions closed with subcuticular stitch. Supraumbilical trocar removed and fascia closed with running stitch. Skin closed with running subcuticular stitch. Skin glue placed. UOP: 1700cc Complications None
[2021-03-29] MEDS: oxyCODONE 5 MG Tablet PO (12:17)
== END 2021-03-29 23:59 | disposition home or self-care (01) ==
LOC: SDC 05:53 → AC 05:54
PROVIDERS: Anesthesiology; PCP Family Medicine; Referring Provider Student in an Organized Health Care Education/Training Program; Visit Provider Student in an Organized Health Care Education/Training Program
PROC: 0UT94ZZ Resection of Uterus, Percutaneous Endoscopic Approach (ICD-10-PCS; CPT 58571; principal; 2021-03-29 07:10)
DX: Z30.2 Encounter for sterilization (principal); N85.01 Benign endometrial hyperplasia; N88.8 Other specified noninflammatory disorders of cervix uteri; D25.9 Leiomyoma of uterus, unspecified; N80.0 Endometriosis of uterus; N83.291 Other ovarian cyst, right side; N87.9 Dysplasia of cervix uteri, unspecified; N83.292 Other ovarian cyst, left side; I10 Essential (primary) hypertension; Z86.16 Personal history of COVID-19; Z79.899 Other long term (current) drug therapy
CPT/HCPCS: 58571; 00840; 36415; 80048; 82962; 83735; 85027; 86850; 86900; 86901; 88307; 93005; J7120; J2405

== ENCOUNTER → 2021-07-19 | Outpatient (CLI) | payer OTHER, SELFPAY ==
[2021-07-19 10:33] LABS: Vitamin B12 237 pg/mL (211-911)
[2021-07-19 10:54] LABS: ALB/GLOB Ratio 0.8 RATIO (0.9-2.4); AST(SGOT) 24 U/L (15-37); Alanine Aminotransfer ALT/SGPT 24 U/L (13-56); Albumin, Serum 3.6 g/dL (3.2-5.0); Alkaline Phosphatase 68 U/L (45-117); Anion Gap 9 (5-15); BUN 15 mg/dL (7-18); BUN/Creat Ratio 15.6 RATIO (10-20); Calcium,Total 8.8 mg/dL (8.5-10.1); Chloride 100 mmol/L (98-107); Creatinine, Serum 0.96 mg/dL (0.55-1.02); EST Glomerular Filtration Rate 63 mL/min (>60); Est Glom Filt Rate - Afr Amer 76 mL/min (>60); Globulin 4.4 g/dL (2.2-4.2); Glucose 107 mg/dL (74-106); Potassium 3.5 mmol/L (3.5-5.1); Sodium Level 136 mmol/L (136-145); Thyroid Stim Hormone (TSH) 1.61 uIU/mL (0.358-3.74)
== END | disposition home or self-care (01) ==
LOC: MFPLAB 09:19
PROVIDERS: PCP Family Medicine; Referring Provider Family Medicine; Visit Provider Family Medicine
DX: E53.8 Deficiency of other specified B group vitamins (principal); Z13.29 Encounter for screening for other suspected endocrine disorder; R73.01 Impaired fasting glucose
CPT/HCPCS: 36415; 80053; 82607; 84443

== ENCOUNTER → 2021-11-21 | Outpatient (CLI) | payer OTHER, SELFPAY ==
--- NOTE | 2021-11-21 07:05 | BI_ITS ---
MAMMOGRAPHY - BILATERAL SCREENING REASON FOR EXAM: Female, 56 years old. Routine annual screening examination. PERTINENT HISTORY: Non-contributory. TECHNIQUE: Digital bilateral breast aaron (3D mammographic acquisition) in the CC and MLO projections. 2-D mediolateral oblique (MLO) and craniocaudad (CC) views of both breasts were obtained. CAD: Full Field Digital Mammography with Computer Added Detection was performed. COMPARISON: Comparison is made with prior study to 11/20/2020 and 11/11/2019. FINDINGS: Breast Composition: There are scattered areas of fibroglandular density. There are no dominant masses or suspicious calcifications. No other significant abnormalities are identified. There has been no significant change since the prior study. BI/SCRN MAMM (CAD)W/AARON BILAT IMPRESSION: Stable bilateral screening mammogram. Yearly follow-up mammogram recommended. (A) ASSESSMENT CATEGORY: BIRADS Category 1: Negative. A letter regarding these results will be sent to the patient by the facility within 30 days. Approximately 10% of breast cancers are not detected by mammography. A normal mammogram should not delay biopsy of a clinically suspicious abnormality. [id number] Electronically Signed: Immanuel Evans MD at 8:45 EDT ,
== END | disposition home or self-care (01) ==
LOC: OPBI 07:04
PROVIDERS: PCP Family Medicine; Visit Provider Family Medicine
DX: Z12.31 Encounter for screening mammogram for malignant neoplasm of breast (principal)
CPT/HCPCS: 77063; 77067

== ENCOUNTER 2022-09-30 17:00 | Outpatient (RCR) | payer OTHER, SELFPAY ==
--- NOTE | 2022-09-11 07:46 | HP.PTEVAL ---
Patient's Visit Information Visit Information Visit Information: MALICK IBRAHIM is a 57 year old F referred to Physical Therapy by Dr. Donato Murry MD with a diagnosis of Right Knee OA. Date of Evaluation: 09/11/22 Physical Therapist: Maya Riley DPT Visit Plan Frequency: 2x /Week Duration: 4 Weeks Plan: Aquatic Therapy- prehab for TKR and weight loss HEP Given IE: SLS, bolster extn stretch, quad set, SLR, clams Subjective Subjective: Fell in 2017- right knee surgery by Dr. Delatorre the knee was a mess- she has had issues since then. Dr. Murry and pt talked about TKR- he wants her to lose some weight and do PT prior to approval for surgery. He was also referring her to [facility] and she is still waiting to hear from them. The knee feels like its constantly inflammed and sore. She tries to limit anti-inflam so she only takes them when its really bad. Going down hill/stairs is really hard. Standing for long periods of time and uneven surfaces. It is keeping her from doing things she wants to do. Worst: 08/03. Best: 04/05. Pain is located in the whole knee below the knee cap is the most. She has had an injection when it was really bad and that helped for a few months that was about a year ago. Describes the pain as dull and achy but constant. Pain does radiate to the hip and ankle when she does too much and feels its from overcompensation. No N/T in the toes. Does have some LBP when she is on her feet for long periods of time. She does not see a chiro or massage therapist. 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 Goals: get moving more with less pain and get more active. Sleep: not disturbed unless a very active day. She has had recent x-rays at [facility]. PMHx: HTN Meds: lisinopril, B12 Objective Objective: Posture: FH, RS- can correct but does not maintain- pt is overweight Gait: antalgic- does not have full extension of the right knee leading to poor heel strike during IC Stairs: asc with 2 HR and does use UE for propulsion- desc non recip with 2 HR HR/TR: able but reports discomfort and harder to perform TR on right SLS: 3-5 seconds then LOB and reports instability Sensation: WNL to gross touch Palpation: tender along medial joint line and distal patella ROM: -30 degrees from full extension to 100 degrees of flexion with pain at end ranges Flex: HS: severe, Quad: severe, Gastroc: severe Strength: Core: fair minus, Hip: 4/5 throughout, Knee: 4+/5 in available range, Ankle: 5/5 Observation: valgus Special Tests R Knee Valgus - MCL: Positive R Knee Varus - LCL: Positive Balance/Special Test Scores Lower Extremity Functional Score: 41 Goals Goal 1:: Patient will be I with HEP and progression Goal Time Frame: 4-6 Weeks Goal 2:: Patient will demo 15 degrees from neutral extension Goal Time Frame: 4-6 Weeks Goal 3:: Patient will asc/desc 8 recip with 1 HR Goal Time Frame: 4-6 Weeks Goal 4:: Patient will report 80% improvement Goal Time Frame: 4-6 Weeks Rehabilitation Potential Physical Therapy Diagnosis: Patient presents with hypomobility- she has decreased LE ROM, strength/stabilization, flex and muscular endurance leading to abnormal gait and decreased ability to perform ADL's. Rehabilitation Potential: Good Anticipated Interventions Therapeutic Exercise to Include: Strength training, Endurance training, Balance training, Coordination, Agility training, Body mechanics, Postural training, Flexibilty training, Gait and locomotor training, Neuromotor development, In an aquatic setting, Passive ROM, Active ROM, Dynamic Lumbar Stabilization and Scapular Strength/Stabilization For the Purpose of:: To improve muscle performance and motor function Text: Thank you for the opportunity to evaluate your patient. For Medicare and Medicare HMO plans, please review the plan of care and approve it. It will need to be FAXED BACK to us at [phone] for Medicare purposes. For Medicare only, by signing this I certify the plan of care. Please let me know if there are questions or concerns regarding this plan of care. Physician Signature: Date:
--- NOTE | 2022-11-07 13:39 | HP.PT.NRP ---
Patient Information Patient Information: MALICK IBRAHIM was seen in my office for initial evaluation on 09/11/22. The following Plan of Care was established for this patient: POC Established Initial Frequency: 2x /Week Initial Duration: 4 Weeks Anticipated Interventions Therapeutic Exercise to Include: Strength training, Endurance training, Balance training, Coordination, Agility training, Body mechanics, Postural training, Flexibilty training, Gait and locomotor training, Neuromotor development, In an aquatic setting, Passive ROM, Active ROM, Dynamic Lumbar Stabilization and Scapular Strength/Stabilization For the Purpose of:: To improve muscle performance and motor function Last Seen Last Seen: This patient was last seen in our office . Pertinent comments regarding their Physical therapy will appear below: Patient has not attended PT in over 30 days and is appropriate for d/c and to follow up with MD as needed. At this point I will be discontinuing this patient from physical therapy. I would be happy to see this patient again in the future if found appropriate by the physician. Thank you! Maya Riley, NOMIT Balance/Gait/Functional tests Balance/Special Test Scores Lower Extremity Functional Score: 41
== END 2022-09-30 19:00 | disposition home or self-care (01) ==
LOC: PT 17:00
PROVIDERS: PCP Family Medicine; Referring Provider Specialist; Visit Provider Specialist
DX: M17.31 Unilateral post-traumatic osteoarthritis, right knee (principal); M21.061 Valgus deformity, not elsewhere classified, right knee; M25.561 Pain in right knee
CPT/HCPCS: 97110; 97113; 97162

== ENCOUNTER 2023-03-03 17:00 | Outpatient (RCR) | payer OTHER, SELFPAY ==
--- NOTE | 2023-01-12 18:21 | HP.PTEVAL_ITS ---
Patient's Visit Information Visit Information Visit Information: MALICK IBRAHIM is a 57 year old F referred to Physical Therapy by MATTHIAS Ibrahim with a diagnosis of S/P R TKR 12/31/22. Date of Evaluation: 01/02/23 Physical Therapist: Agnieszka Barfield, PT, Cert MDT Visit Plan Frequency: 2-3x /Week Duration: 4-6 Weeks Plan: WEIGHTBEARING TOLERATED. LIMIT FLEXION TO 90 DEGREES FOR 2 WKS POSTOPERATIVELY (01/14/23). AFTER 2 WKS CAN BEGIN PROGRESSING ROM 15 DEGREES EVERY 2 WKS WITH GOAL OF 120 DEG AT 6 WKS POSTOP. ADD IN ICE FOR EDEMA CONTROL AND QUAD ACTIVATION. PROGRESS GAIT TO LRD TOLERATED. 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 CURRENTLY OFF WORK WITH TENTATIVE RTW DATE OF 01/21/23. 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 [facility]. Disability: NO Present symptoms: CONSTANT R KNEE PAIN. INTERMITTENT LOW BACK PAIN. Present since: ABOUT 6 YEARS Pain Scale: WORST 6/10, LEAST 2/10 Currently: 4/10 Commenced as a result of: FALL 2016 (DR. FELIPE - MEDIAL RETINACULUM REPAIR) BUT ALREADY HAD ARTHRITIS STARTING. Worse: BENDING THE KNEE. PROLONGED STANDING AND WALKING. Better: ICE AND ELEVATION. KEEPING IT STRAIGHT. Disturbed sleep: YES Previous history/Previous treatment: SURGERY STATED ABOVE. CORTISONE SHOT ABOUT A YEAR AND A HALF AGO THAT HELP WITH THE PAIN SOME TEMPORARILY. Treatment this episode: R TKR 12/31/22 Gait: WBAT WITH FWW. Bowel or Bladder Dysfunction: NO Accidents: FALL ABOVE Unexplained weight loss: NO PMH/Recent major surgery: HTN, R RCT, R WRIST ORIF AND R ANKLE ORIF ALL IN 2017 WHEN HAD FALL AND R KNEE SX. OTHER: PATIENT REPORTS COMPLIANCE WITH HOME EX'S GIVEN AT HOSPITAL X 15 REPS. GOT HOME AT 3 PM YESTERDAY AND HAS DONE EX'S AT HOME TWICE - AP'S, QS'S, GS'S AND SLR'S. HAS NOT DONE HEEL SLIDES AT HOME YET. Objective Objective: GAIT: THIS PATIENT AMBULATES INDEP'LY INTO PT TODAY WITH A FWW, DECREASED CADANCE and PWB ON R LE. NO LOB. WOMAC score: 60/96 TU.32 SEC R knee flexion AROM: 73 degress R knee ext AROM: -10 R knee flex MMT; 3-/5 R knee ext MMT 3-/5 R hip MMT 3+/5 R ankle MMT 4/5 L MMT: GROSSLY 5/5 Sensory deficit: L LE LIGHT TOUCH SENSATION INTACT. R LE GROSSLY INTACT BY TESTING IMPAIRED BY WOUND VAC AND bandaging. Observation: No obvious signs of infection. Girth measurements also impaired by Wound Vac. TREATMENT: HEP CHECK AND ENCOURAGEMENT TO INCLUDE HEEL SLIDES AND CONTINUE TO AVOID PROPPING UNDER KNEE SO TO ENCOURAGE FULL EXTENSION. GAIT TRAINING FOR WBAT ENCOURAGING HEEL STRIKE, FOOT FLAT, TOE OFF PATTERNING MUCH POSSIBLE. PATIENT DID REALLY WELL WITH THIS. OVER ALL SHE DEMONSTRATES/COMMUNICATES A GOOD UNDERSTANDING OF ALL INSTRUCTIONS AFTER GIVEN AND TOLERATED EVALUSTION WELL. Balance/Special Test Scores WOMAC Total Score: 60 WOMAC Percentatge: 37.5000 Goals Goal 1:: PATIENT TO BE INDEP WITH HEP Goal Time Frame: 4-6 Weeks Goal 2:: PATIENT TO HAVE DECREASED EDEMA IN RLE Goal Time Frame: 4-6 Weeks Goal 3:: PATIENT TO HAVE INCREASED R KNEE ROM TO 0-120 FLEX Goal Time Frame: 6-8 Weeks Goal 4:: PATIENT TO HAVE INCREASED RLE STRENGTH TO 5/5 THROUGHOUT ALLOWING FOR INCREASED STABILITY WITH ALL GAIT AND WORK ACTIVITIES Goal Time Frame: 4-6 Weeks Goal 5:: PATIENT TO HAVE NORAML GAIT PATTERN WITHOUT USE OF AD Goal Time Frame: 4-6 Weeks Goal 6:: PATIENT TO NEGOTIATE STEPS WITH 1 HR WITH RECIPROCAL PATTERN WITHOUT LIMITATIONS. Goal Time Frame: 6-8 Weeks Rehabilitation Potential Physical Therapy Diagnosis: PATIENT HAS SIGNS AND SYMPTOMS CONSISTENT WITH R TKA. SHE HAS SUBSEQUENT HYPOMOBILITY, WEAKNESS, DIFFICULTY WALKING AND INCREASED PAIN. SHE WOULD BENEFIT FROM PT TO ADDRESS THE ABOVE LIMITATIONS TO TRY TO PROGRESS BACK TO HER PLOF IN TERMS OF WORK AND RECREATIONAL ACTIVITIES WITHOUT LIMITATIONS. Rehabilitation Potential: Good Anticipated Interventions Patient/Client Instruction: Educate patient on: Condition, Plan of Care and Risk Factors For the Purpose of:: To improve self management Therapeutic Exercise to Include: Strength training, Endurance training, Balance training, Body mechanics, Flexibilty training, Gait and locomotor training, Passive ROM and Active ROM For the Purpose of:: To decrease pain, To decrease swelling/inflammation, To increase ROM, To improve nutrient delivery to tissue, To increase oxygenation perfusion, To improve muscle performance and motor function, To improve ability to perform ADL's, To increase tolerance to activity/condition/position, To improve performance and independence with ADL's, To improve gait and locomotor functions, To improve health of tissue, To decrease soft tissue restriction and To increase flexibility/ROM Manual Therapy Techniques to Include: Mobilization and Soft tissue mobilization For the Purpose of:: To decrease pain, To decrease swelling/inflammation and To increase ROM Cryotherapy (ice pack, ice massage): Yes For the Purpose of:: To decrease swelling/inflammation Text: Thank you for the opportunity to evaluate your patient. For Medicare and Medicare HMO plans, please review the plan of care and approve it. It will need to be FAXED BACK to us at [phone] for Medicare purposes. For Medicare only, by signing this I certify the plan of care. Please let me know if there are questions or concerns regarding this plan of care. Physician Signature: Date:
--- NOTE | 2023-01-27 18:28 | HP.PTREVAL ---
Re-Evaluation Intro: MATTHIAS Ibrahim, It has been my pleasure to treat MALICK IBRAHIM over the last 10 visits for S/P R TKR 12/31/22. Please see the progress note below for an update on the physical therapy plan of care! Subjective Subjective: PATIENT REPORTS EVERYTHING HAS IMPROVED. SHE STATES SHE CAN GET IN AND OUT OF THE CAR, GET IN AND OUT OF THE SHOWER, WALK AND BEND HER KNEE A LOT BETTER. I FEEL LIKE I AM GETTING A LOT BETTER . SHE REPORTS SHE IS DOING HER FAITHFULLY AND HER HELPS HER ON THE WEEKENDS. SHE STATES IT FEELS EVEN BETTER WHEN SHE GETS HELP STRETCHING. SHE DENIES HAVING ANY PROBLEMS OR FEELING LIKE ANYTHING IS GETTING WORSE. SHE REPORTS THE THERAPY SESSIONS ARE CHALLENGING BUT IN A GOOD WAY BECAUSE SHE IS IMPROVING OVER-ALL. Objective Objective/Function: PATIENT WAS SEEN TODAY FOR RE-ASSESSMENT OF PROGRESS TOWARD THE SET PT GOALS AND THE NEED FOR FURTHER PHYSICAL THERAPY VS READINESS FOR DISCHARGE. PATIENT IS IMPROVING. SHE SHE IS WALKING WITHOUT AD NOW AND ABLE TO GO UP AND DOWN STEPS RECIP WITH ONE HR BUT NOT WITHOUT DEVIATIONS. SHE HAS DECREASED WEIGHTBEARING TIME ON THE R LE WITH GAIT WITH A MILD LIMP AND AND DECREASED ECCENTRIC CONTROL AND ROM DESCENDING STEPS WHEN LEADING WITH L LE. WOMAC score: 34/96 R knee flexion AROM: 105 degrees in supine with a heel slide. R knee ext AROM: -1 degree with quad set and heel elevation. Moderate R knee and mild lower leg/ankle edema. R knee flex MMT; 3+/5 R knee ext MMT 3-/5 R hip MMT 4-/5 R ankle MMT 4+/5 Plan Plan Plan: PROGRESS ROM TO 120 DEG AT 6 WKS POSTOP TOLERATED. CONTINUE LE STRENGTHENING. CONTINUE GAIT TRAINING INCLUDING STAIR TRAINING. ICE/EDEMA CONTROL. Balance/Gait/Functional tests Balance/Special Test Scores WOMAC Total Score: 34 WOMAC Percentage: 64.5900 Goals Goals Goal 1:: PATIENT TO BE INDEP WITH HEP Goal Time Frame: 4-6 Weeks Goal Progress: Progressing Goal 2:: PATIENT TO HAVE DECREASED EDEMA IN RLE Goal Time Frame: 4-6 Weeks Goal Progress: Progressing Goal 3:: PATIENT TO HAVE INCREASED R KNEE ROM TO 0-120 FLEX Goal Time Frame: 6-8 Weeks Goal Progress: Progressing Goal 4:: PATIENT TO HAVE INCREASED RLE STRENGTH TO 5/5 THROUGHOUT ALLOWING FOR INCREASED STABILITY WITH ALL GAIT AND WORK ACTIVITIES Goal Time Frame: 4-6 Weeks Goal Progress: Progressing Goal 5:: PATIENT TO HAVE NORAML GAIT PATTERN WITHOUT USE OF AD Goal Time Frame: 4-6 Weeks Goal Progress: Progressing Goal 6:: PATIENT TO NEGOTIATE STEPS WITH 1 HR WITH RECIPROCAL PATTERN WITHOUT LIMITATIONS. Goal Time Frame: 6-8 Weeks Goal Progress: Progressing Anticipated Interventions Anticipated Interventions Patient/Client Instruction: Educate patient on: Condition, Plan of Care and Risk Factors For the Purpose of:: To improve self management Therapeutic Exercise to Include: Strength training, Endurance training, Balance training, Body mechanics, Flexibilty training, Gait and locomotor training, Passive ROM and Active ROM For the Purpose of:: To decrease pain, To decrease swelling/inflammation, To increase ROM, To improve nutrient delivery to tissue, To increase oxygenation perfusion, To improve muscle performance and motor function, To improve ability to perform ADL's, To increase tolerance to activity/condition/position, To improve performance and independence with ADL's, To improve gait and locomotor functions, To improve health of tissue, To decrease soft tissue restriction and To increase flexibility/ROM Manual Therapy Techniques to Include: Mobilization and Soft tissue mobilization For the Purpose of:: To decrease pain, To decrease swelling/inflammation and To increase ROM Cryotherapy (ice pack, ice massage): Yes For the Purpose of:: To decrease swelling/inflammation Re-Evaluation Ending Re-evaluation ending: Please do not hesitate to contact me at [phone] by phone or if you have questions or concerns regarding this new plan of care! Sincerely, Agnieszka Barfield, PT, Cert MDT
--- NOTE | 2023-02-19 14:11 | HP.PTREVAL ---
Re-Evaluation Intro: MATTHIAS Ibrahim, It has been my pleasure to treat MALICK IBRAHIM over the last 19 visits for S/P R TKR 12/31/22. Please see the progress note below for an update on the physical therapy plan of care! Subjective Subjective: FOR THE MOST PART THE PAIN IS GONE . 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 IT IS GOING WELL SO FAR . POST OP FOLLOW UP LAST FRIDAY AND HELPED HER UNDERSTAND THE SORENESS SHE WAS/IS HAVING. STILL GETS STIFF AFTER SITTING. WOULD LIKE TO CONTINUE PT FOR STRENGTHENING AND TO BECOME INDEP WITH A PROGRAM TO CONTINUE ON HER OWN. LOOKING INTO A MEMBERSHIP HERE AT [facility]. Objective Objective/Function: PATIENT WAS SEEN TODAY FOR RE-ASSESSMENT OF PROGRESS TOWARD THE SET PT GOALS AND THE NEED FOR FURTHER PHYSICAL THERAPY VS READINESS FOR DISCHARGE. PATIENT IS IMPROVING. SHE SHE IS WALKING WITHOUT AD AND ABLE TO GO UP AND DOWN STEPS RECIP WITH ONE HR BUT STILL NOT WITHOUT DEVIATIONS. SHE HAS DECREASED ECCENTRIC CONTROL DESCENDING STEPS WHEN LEADING DOWN WITH L LE ON STEPS AND A MILD LIMP ON R LE ON LEVEL SURFACES. WOMAC score: 6/96 R knee flexion: 120 degrees in supine with a heel slide W/assist. R knee ext AROM: FULL Moderate R knee and mild lower leg/ankle edema. R knee flex MMT; 4/5 R knee ext MMT 4/5 R hip MMT 5/5 R ankle MMT 5/5 PATIENT IS A GOOD CANDIDATE TO CONTINUE PT PER POC BELOW AND PATIENT IS AGREEABLE. Plan Plan Plan: CHECK TO MAKE SURE PATIENT BRINGS NEW PT ORDER FROM FROM HOME AND HAVE SCANNED INTO CHART. CONTINUE PT 2X'S A WEEK X 2 WKS FOR STRENGTHENING PROGRESSION WORKING TOWARD INDEP GYM PROGRAM TOLERATED. PROVIDE GYM LOG. CONTINUE WITH ROM/STRETCHING INTO END-RANGE. Balance/Gait/Functional tests Balance/Special Test Scores WOMAC Total Score: 6 WOMAC Percentage: 93.7500 Goals Goals Goal 1:: PATIENT TO BE INDEP WITH HEP Goal Time Frame: 4-6 Weeks Goal Progress: Progressing Goal 2:: PATIENT TO HAVE DECREASED EDEMA IN RLE Goal Time Frame: 4-6 Weeks Goal Progress: Progressing Goal 3:: PATIENT TO HAVE INCREASED R KNEE ROM TO 0-120 FLEX Goal Time Frame: 6-8 Weeks Goal Progress: Goal Met Goal 4:: PATIENT TO HAVE INCREASED RLE STRENGTH TO 5/5 THROUGHOUT ALLOWING FOR INCREASED STABILITY WITH ALL GAIT AND WORK ACTIVITIES Goal Time Frame: 4-6 Weeks Goal Progress: Progressing Goal 5:: PATIENT TO HAVE NORAML GAIT PATTERN WITHOUT USE OF AD Goal Time Frame: 4-6 Weeks Goal Progress: Progressing Goal 6:: PATIENT TO NEGOTIATE STEPS WITH 1 HR WITH RECIPROCAL PATTERN WITHOUT LIMITATIONS. Goal Time Frame: 6-8 Weeks Goal Progress: Progressing Anticipated Interventions Anticipated Interventions Patient/Client Instruction: Educate patient on: Condition, Plan of Care and Risk Factors For the Purpose of:: To improve self management Therapeutic Exercise to Include: Strength training, Endurance training, Balance training, Body mechanics, Flexibilty training, Gait and locomotor training, Passive ROM and Active ROM For the Purpose of:: To decrease pain, To decrease swelling/inflammation, To increase ROM, To improve nutrient delivery to tissue, To increase oxygenation perfusion, To improve muscle performance and motor function, To improve ability to perform ADL's, To increase tolerance to activity/condition/position, To improve performance and independence with ADL's, To improve gait and locomotor functions, To improve health of tissue, To decrease soft tissue restriction and To increase flexibility/ROM Manual Therapy Techniques to Include: Mobilization and Soft tissue mobilization For the Purpose of:: To decrease pain, To decrease swelling/inflammation and To increase ROM Cryotherapy (ice pack, ice massage): Yes For the Purpose of:: To decrease swelling/inflammation Re-Evaluation Ending Re-evaluation ending: Please do not hesitate to contact me at [phone] by phone or if you have questions or concerns regarding this new plan of care! Sincerely, Agnieszka Barfield, PT, Cert MDT
--- NOTE | 2023-03-03 17:53 | HP.PTDCSUM_ITS ---
Discharge Summary D/C summary: It has been my pleasure to treat MALICK IBRAHIM referred by MATTHIAS Ibrahim, with the diagnosis of S/P R TKR 12/31/22 for a total of 23 visit(s). Discharge Date: Please see the following information for a summary of their discharge status. Subjective Subjective: PATIENT STATES SHE PURCHASED A [employer] AND IS READY TO CONTINUE ON HER OWN. PATIENT REPORTS HER KNEE WAS STIFF AND SORE WHEN SHE CAME IN TODAY BUT NO PAIN AFTER EXERCISE SESSION. 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 Pain R knee: Pain Intensity (Out of 10): 1 Overall Improvement % Improvement: 95 Objective Objective/Function: PATIENT WAS SEEN TODAY FOR RE-ASSESSMENT OF PROGRESS TOWARD THE SET PT GOALS AND THE NEED FOR FURTHER PHYSICAL THERAPY VS READINESS FOR DISCHARGE. UPON EXAM TODAY ALL PT GOALS HAVE BEEN MET AND PATIENT IS APPROPRIATE FOR AND AGREEABLE TO DISCHARGE. R KNEE ROM IN SUPINE WITH A HEEL SLIDE: FULL EXTENSION TO 123 DEG FLEXION. R LE STRENGTH IS 5/5 AND PATIENT IS INDEP WITH A GYM EX PROGRAM. PATIENT HAS NORMALIZED GAIT PATTERN ON LEVEL SURFACES. SHE IS ABLE TO GO UP AND DOWN STEPS RECIP WITH ONE HR BUT CONTINUES TO HAVE DEVIATIONS WITH R LE COMPARED TO LEFT. Goals Goal 1:: PATIENT TO BE INDEP WITH HEP Goal Progress: Goal Met Goal 2:: PATIENT TO HAVE DECREASED EDEMA IN RLE Goal Progress: Goal Met Goal 3:: PATIENT TO HAVE INCREASED R KNEE ROM TO 0-120 FLEX Goal Progress: Goal Met Goal 4:: PATIENT TO HAVE INCREASED RLE STRENGTH TO 5/5 THROUGHOUT ALLOWING FOR INCREASED STABILITY WITH ALL GAIT AND WORK ACTIVITIES Goal Progress: Goal Met Goal 5:: PATIENT TO HAVE NORAML GAIT PATTERN WITHOUT USE OF AD Goal Progress: Goal Met Goal 6:: PATIENT TO NEGOTIATE STEPS WITH 1 HR WITH RECIPROCAL PATTERN WITHOUT LIMITATIONS. Goal Progress: Goal Met Plan Plan: CONTINUE PT 2X'S A WEEK X 2 WKS FOR STRENGTHENING PROGRESSION WORKING TOWARD INDEP GYM PROGRAM TOLERATED. PROVIDE GYM LOG. CONTINUE WITH ROM/STRETCHING INTO END-RANGE. D/C Information d/c sentence: If there are questions or concerns regarding this patient's physical therapy, please feel free to call me at [phone]. Thank you for the referral of this patient. Sincerely, Agnieszka Barfield, PT, Cert MDT Balance/Gait/Functional tests Balance/Special Test Scores WOMAC Total Score: 6 WOMAC Percentage: 93.7500 Improvement % Improvement: 95
== END 2023-03-03 19:00 | disposition home or self-care (01) ==
LOC: PT 17:00
PROVIDERS: PCP Family Medicine; Referring Provider Physician Assistant Surgical; Visit Provider Physician Assistant Surgical
DX: Z96.651 Presence of right artificial knee joint (principal); Z47.1 Aftercare following joint replacement surgery
CPT/HCPCS: 97110; 97162; 97164; 97530

== ENCOUNTER → 2023-09-30 | Outpatient (CLI) | payer OTHER, SELFPAY ==
--- NOTE | 2023-09-30 08:22 | BI_ITS ---
MAMMOGRAPHY - BILATERAL SCREENING REASON FOR EXAM: Female, 58 years old. Routine annual screening examination. PERTINENT HISTORY: Non-contributory. TECHNIQUE: Digital bilateral breast aaron (3D mammographic acquisition) in the CC and MLO projections. 2-D mediolateral oblique (MLO) and craniocaudad (CC) views of both breasts were obtained. CAD: Full Field Digital Mammography with Computer Added Detection was performed. COMPARISON: Comparison is made with prior study November 21, 2021 and November 20, 2020. FINDINGS: Breast Composition: There are scattered areas of fibroglandular density. There are no dominant masses or suspicious calcifications. No other significant abnormalities are identified. There has been no significant change since the prior study. BI/SCRN MAMM (CAD)W/AARON BILAT IMPRESSION: Stable bilateral screening mammogram. Yearly follow-up mammogram recommended. (A) ASSESSMENT CATEGORY: BIRADS Category 1: Negative. A letter regarding these results will be sent to the patient by the facility within 30 days. Approximately 10% of breast cancers are not detected by mammography. A normal mammogram should not delay biopsy of a clinically suspicious abnormality. [id number] Electronically Signed: Immanuel Evans MD at 9:23 EDT ,
== END | disposition home or self-care (01) ==
LOC: OPBI 08:21
PROVIDERS: PCP Family Medicine; Referring Provider Family Medicine; Visit Provider Family Medicine
DX: Z12.31 Encounter for screening mammogram for malignant neoplasm of breast (principal)
CPT/HCPCS: 77063; 77067

== ENCOUNTER → 2024-10-13 | Outpatient (CLI) | payer OTHER, SELFPAY ==
[2024-10-13 15:58] LABS: AST(SGOT) 24 U/L (<=31); Alanine Aminotransfer ALT/SGPT 13 U/L (<=34); Albumin, Serum 4.1 g/dL (3.4-4.8); Alkaline Phosphatase 78 U/L (35-104); Anion Gap 16 (5-15); BUN 13 mg/dL (4-19); BUN/Creat Ratio 13.6 RATIO (10-20); Calcium,Total 9.6 mg/dL (7.6-11.0); Carbon Dioxide 23.3 mmol/L (21.0-32.0); Chloride 96 mmol/L (98-108); Cholesterol 208 mg/dL (<=200); Globulin 3.9 g/dL (2.2-4.2); Glucose 91 mg/dL (70-99); Low Density Lipoprotein Calc. 120 mg/dL; Potassium 3.4 mmol/L (3.3-5.1); Triglycerides 125 mg/dL; Very Low Density Lipoprotein 25 mg/dL (5-40); cholesterol:hdl ratio screen 3.30
--- OUTSIDE RECORDS SUMMARY | 2024-10-13 18:41 | XMS RPT_ITS | CCD ---
Author Organization [facility] Inform ion Partnership [facility] Care Team Providers Care Senior Consultant Name Role Phone JETT COATS, DR BUNCH Primary Care Physician QUINTEN COATS, DR SALVADOR Vaca Attending Amy Casas MD, DR BUNCH Primary Care Eleanor SHIPLEY MD, DR SALVADOR Vaca Attending Amy Casas MD, DR BUNCH Primary Care Eleanor RITCHIE MD, DR BUNCH Primary Care Eleanor SHIPLEY MD, DR SALVADOR Vaca Admitting Unavailab barbara CRAIN APRN-EVENT SALES ASSISTANT, RICHARD Castillo Consulting Ina SHIPLEY MD, DR SALVADOR Vaca Referring Unavailab barbara CRAIN APRN-EVENT SALES ASSISTANT, RICHARD Castillo Attending Parisa Bernard Attending Parisa Lepe Referring Julio C Higuera Primary Care Julio C Higuera Primary Care Unavailable Julio C Ritchie Attending Julio C Higuera Referring Unavailable Tre Kim DO Primary Care Provide r Allergies Allergy Classification Reported Allergen(s) Allergy Type Date of Onset Reaction(s) Facility (3 sources) Sulfamethoxazole Drug Allergy 4 [facility] (5 sources) terbinafine; Translations: [terbinafine] Drug Allergy 2 [facility] (2 sources) Trimethoprim Drug Allergy 2 [facility] Work Phone: (3 sources) Sulfamethoxazole / Trimethoprim; Translations: [sulfamethoxazole-tr imethoprim] Drug Allergy [facility] (1 source) Sulfamethoxazole Drug Allergy 4 [facility] Repository (1 source) terbinafine Drug Allergy 4 [facility] (1 source) Trimethoprim Drug Allergy 4 [facility] Repository Medications Current Medications Medication Drug Class(es) Dates Sig (Normalized) Sig (Original) acetaminophen 1000 mg oral tablet (1 source) Start: 3 take 1 tablet by mouth once daily Tylenol Dose : 1,000 mg = 2 tab(s), Oral, TID, not to exceed 3000 mg/day, 0 Refill(s) Start Date: 01/01/23 Status: Ordered acetaminophen 325 mg / HYDROcodone bitartrate 5 mg oral tablet (1 source) Opioid Agonist Start: 4 take 1 tablet by mouth every six hours as needed HYDROcodone-acetami nophen 5-325 mg per tablet Take 1 tablet by mouth every 6 hours as needed. 20 tablet 0 03/01/2013 Active aspirin 81 mg delayed release oral tablet (1 source) Platelet Aggregation Inhibitor, Nonsteroidal Anti-inflammatory Drug Start: 3 End: 3 take 1 tablet by mouth twice daily aspirin 81 mg oral delayed release tablet Dose : 81 mg = 1 tab(s), Oral, BID, Take 81 mg aspirin twice daily with food for 4 weeks postoperatively for DVT prophylaxis., # 60 tab(s), 0 Refill(s), Pharmacy: [facility]/pharmacy #[id number], 160, cm, 12/31/22 13:06:00 EST, Height, kg, 12/31/22 13:06:00 EST, Dosing Weight Start Date: 01/01/23 Stop Date: 01/31/23 Status: Ordered cholecalciferol 0.025 mg chewable tablet (2 sources) Vitamin D Start: 2 take 1 tablet by mouth once daily Cholecalciferol (Vitamin D3) (Vitamin D3) 25 mcg (1,000 unit) Tablet,Chewable Active 25 MCG PO DAILY March 22, 2021 1:48pm docusate sodium 50 mg / sennosides, detention 8.6 mg oral tablet (1 source) Start: 3 End: 3 take 1 tablet by mouth twice daily Senokot S 50 mg-8.6 mg oral tablet Dose = 2 tab(s), Oral, BID, Take until first bowel movement, then as needed, X 3 day(s), # 12 tab(s), 0 Refill(s), Pharmacy: [facility]/pharmacy #[id number], 160, cm, 12/31/22 13:06:00 EST, Height, kg, 12/31/22 13:06:00 EST, Dosing Weight Start Date: 01/01/23 Stop Date: 01/04/23 Status: Ordered doxycycline hyclate 100 mg oral capsule (1 source) Tetracycline-clas s Drug Start: 3 End: 3 doxycycline hyclate 100 mg oral capsule Dose : 100 mg = 1 cap(s), Oral, q12h, X 14 day(s), # 28 cap(s), 0 Refill(s), 01/15/23 7:20:00 AM EST, [id number] 160, cm, 12/31/22 13:06:00 EST, Height, 104.5, kg, 12/31/22 13:06:00 EST, Dosing Weight Start Date: 01/01/23 Stop Date: 01/15/23 Status: Ordered famotidine 20 mg oral tablet (1 source) Histamine-2 Receptor Antagonist Start: 3 Pepcid 20 mg oral tablet Dose : 20 mg = 1 tab(s), Oral, qDay, # 30 tab(s), 0 Refill(s), [id number], 160, cm, 12/31/22 13:06:00 EST, Height, kg, 12/31/22 13:06:00 EST, Dosing Weight Start Date: 01/01/23 Status: Ordered hydroCHLOROthiazide 12.5 mg / lisinopril 20 mg oral tablet (6 sources) Thiazide Diuretic, Angiotensin Converting Enzyme Inhibitor Start: 3 take 1 tablet by mouth twice daily hydrochlorothiazide -lisinopril 12.5 mg-20 mg oral tablet Dose = 1 tab(s), Oral, BID, # 90 tab(s), 0 Refill(s) Start Date: 12/09/22 Status: Ordered Start: 08-11-2020 take 1 tablet by damien twice daily Lisinopril-Hydrochlorothiazide Active 1 TABLET PO TWICE A DAY August 11, 2020 1:18pm Start: 08-13-2019 take 1 tablet by damien th once lisinopril-hydrochlorothiazide (PRINZIDE,ZESTORETIC) 20-12.5 mg per tablet Take 1 tablet by mouth. 08/13/2019 Active Magnesium (2 sources) Start: 03-22-2021 take 250 mg by mouth once daily Magnesium Active 250 MG PO DAILY March 22, 2021 1:48pm Start: 03-22-2021 take 250 mg by mouth once jonathan y Magnesium Active 250 MG PO DAILY March 22, 2021 1:00am meloxicam 7.5 mg oral tablet (1 source) Nonsteroidal Anti-inflammatory Drug Start: 01-01-2023 End: 01-31-2023 Mobic 7.5 mg oral tablet Dose : 7.5 mg = 1 tab(s), Oral, BIDM, Do not take any other nonsteroidal anti-inflammatories while on meloxicam/Mobic, # 60 tab(s), 0 Refill(s), Pharmacy: [facility]/pharmacy #[id number], 160, cm, 12/31/22 13:06:00 EST, Height, kg, 12/31/22 13:06:00 EST, Dosing Weight Start Date: 01/01/23 Stop Date: 01/31/23 Status: Ordered Multivitamin preparation (3 sources) Start: 12-09-2022 take 1 tablet by mouth once daily Multivitamin Dose = 1 tab(s), Oral, Daily, 0 Refill(s) Start Date: 12/09/22 Status: Ordered Multivitamin With Folic Acid (Thera) 1 TABLET tablet (2 sources) Start: 04-30-2016 take 1 tablet by mouth once daily Multivitamin With Folic Acid (Thera) 1 TABLET tablet Active 1 TABLET PO DAILY April 30, 2016 10:46am Start: 04-30-2016 take 1 tablet by damien th once daily Multivitamin With Folic Acid (Thera) 1 TABLET tablet Active 1 TABLET PO DAILY April 30, 2016 1:00am naproxen 500 mg oral tablet (1 source) Nonsteroidal Anti-inflammatory Drug Start: 03-01-2013 take 1 tablet by mouth every twelve hours as needed naproxen (NAPROSYN) 500 mg tablet Take 1 tablet by mouth twice daily as needed (pain/inflammation, take with food.). 20 tablet 1 03/01/2013 Active ondansetron 4 mg oral tablet (2 sources) Serotonin-3 Receptor Antagonist Start: 03-29-2021 take 4 mg by mouth every six hours Ondansetron Hcl Active 4 MG PO EVERY 6 HOURS March 29, 2021 8:18am oxyCODONE hydrochloride 5 mg oral tablet (3 sources) Opioid Agonist Start: 01-01-2023 End: 01-08-2023 take 1-2 tablets by mouth every four hours as needed for pain oxyCODONE 5 mg oral tablet ( IMMEDIATE release ) See Instructions, PRN as needed for pain, 1-2 tab(s) Oral q4h, # 42 tab(s), 0 Refill(s), 01/08/23 7:20:00 AM EST, Pharmacy: [facility]/pharmacy #[id number], Status post total right knee replacement, 160, cm, 12/31/22 13:06:00 EST, Height, 104.5, kg, 12/31/22 13:06:00 EST, Dosing Weight Start Date: 01/01/23 Stop Date: 01/08/23 Status: Ordered Start: 03-29-2021 take 5 mg by mouth e very six hours Oxycodone Active 5 MG PO EVERY 6 HOURS 24 March 29, 2021 vitamin B12 (1 source) Vitamin B12 Start: 12-31-2022 take 1 dose by mouth once daily Vitamin B12 Dose : 50 mcg =, Oral, qDay, 0 Refill(s) Start Date: 12/31/22 Status: Ordered Vitamin D3 (3 sources) Start: 12-09-2022 Vitamin D3 Dos e : 100 mcg = 1 tab(s), Oral, Daily, # 90 tab(s), 0 Refill(s) Start Date: 12/09/22 Status: Ordered Zinc (2 sources) Start: 03-22-2021 take 50 mg by mouth once daily Zinc Active 50 MG PO DAILY March 22, 2021 1:48pm Start: 03-22-2021 take 50 mg by mouth once daily Zinc Active 50 MG PO DAILY March 22, 2021 1:00am Completed/Discontinued Medications Medication Drug Class(es) Dates Sig (Normalized) Sig (Original) acetaminophen 325 mg / oxyCODONE hydrochloride 5 mg oral tablet (2 sources) Opioid Agonist Start: 04-28-2016 End: 05-02-2016 take 1 tablet by mouth every four hours as needed Oxycodone-Acetamino phen Discontinued 1 - 2 TABLET PO EVERY 4 HOURS NEEDED April 28, 2016 6:23pm May 02, 2016 8:34am estradiol 0.1 mg/ml vaginal cream (4 sources) Estrogen Start: 12-09-2022 estradiol 0.1 mg/g vaginal cream Dose = 1 appl, Vaginal, qWeek, 0 Refill(s) Start Date: 12/09/22 Status: Ordered Start: 08-11-2020 Estradiol Acti ve 1 APPFUL VAGINAL TAYLOR August 11, 2020 1:18pm Problems Problem Classification Problem Date Documented Date Episodic/Chronic Essential hypertension (1 source) Essential hypertension; Translations: [Essential (primary) hypertension] Onset: 12-31-2022 Chronic Fracture of upper limb (2 sources) Fracture at wrist and/or hand level; Translations: [Fracture of unspecified carpal bone, right wrist, initial encounter for closed fracture] Episodic Immunizations and screening for infectious disease (1 source) Suspected disease caused by 2019-nCoV; Translations: [Suspected COVID-19 virus infection] 12-29-2019 Episodic Osteoarthritis (1 source) Osteoarthritis; Translations: [Unspecified osteoarthritis, unspecified site] Onset: 12-31-2022 Chronic Other aftercare (1 source) Aftercare following joint replacement surgery; Translations: [Aftercare following joint replacement surgery] Onset: 03-31-2023 Chronic Other connective tissue disease (1 source) Artificial knee joint present; Translations: [Presence of right artificial knee joint] Onset: 01-01-2023 Chronic Other connective tissue disease (1 source) Presence of right artificial knee joint; Translations: [Presence of right artificial knee joint] Onset: 03-31-2023 Chronic Other injuries and conditions due to external causes (2 sources) Injury of knee; Translations: [Unspecified injury of right lower leg, initial encounter] Episodic Other nervous system disorders (2 sources) Acute postoperative pain; Translations: [Other acute postprocedural pain] Episodic Other screening for suspected conditions (not mental disorders or infectious disease) (1 source) Encounter for screening mammogram for malignant neoplasm of breast; Translations: [Encounter for screening mammogram for malignant neoplasm of breast] Onset: 10-25-2023 Episodic Residual codes; unclassified (1 source) Sleep apnea; Translations: [Sleep apnea, unspecified] Onset: 12-31-2022 Chronic Results Test Name Value Interpretation Reference Range Facility SCRN MAMM (CAD)W/AARON BILATo n 09-30-2023 SCRN MAMM (CAD)W/AARON BILAT [facility] Imaging Services [address] [place] [address] SCRN MAMM (CAD)W/AARON BILAT MR#: [id number] Acct: [id number] Name: RADHA IBRAHIM Rep #: [id number] : 1965 F 58 From: Immanuel nelson MD PCP: Dr. Julio C Ritchie MD Status: [facility] Study: SCRN MAMM (CAD)W/AARON BILAT Date of Exam: 08/17 Exam# [id number] Ordering Dr: Julio C Ritchie [id number] MAMMOGRAPHY - BILATERAL SCREENING REASON FOR EXAM: Female, 58 years old. Routine annual screening examination. PERTINENT HISTORY: Non-contributory. TECHNIQUE: Digital bilateral breast aaron (3D mammographic acquisition) in the CC and MLO projections. 2-D mediolateral oblique (MLO) and craniocaudad (CC) views of both breasts were obtained. CAD: Full Field Digital Mammography with Computer Added Detection was performed. COMPARISON: Comparison is made with prior study November 21, 2021 and November 20, 2020. FINDINGS: Breast Composition: There are scattered areas of fibroglandular density. There are no dominant masses or suspicious calcifications. No other significant abnormalities are identified. There has been no significant change since the prior study. BI/SCRN MAMM (CAD)W/AARON BILAT IMPRESSION: Stable bilateral screening mammogram. Yearly follow-up mammogram recommended. (A) ASSESSMENT CATEGORY: BIRADS Category 1: Negative. A letter regarding these results will be sent to the patient by the facility within 30 days. Approximately 10% of breast cancers are not detected by mammography. A normal mammogram should not delay biopsy of a clinically suspicious abnormality. [id number] Electronically Signed: Immanuel Evans MD at 9:23 EDT , CC: Dr. Julio C Ritchie MD Librarian Special Collections: Signed Normal [facility] PT D/C Summary (1)on 024 PT D/C Summary (1) [facility] Physical Therapy [facility] [place] [address] / REHABILITATION SERVICES DISCHARGE SUMMARY MR#: [id number] Acct: [id number] Name: RADHA IBRAHIM Rep #: [id number] : 1965 57 From: Agnieszka Barfield PT, Cert. T Referring Dr.: MATTHIAS Ibrahim Status: DIS RCR Insurance: [employer] SELF PAY INSURANCE Discharge Summary D/C summary: It has been my pleasure to treat RADHA IBRAHIM referred by MATTHIAS Ibrahim, with the diagnosis of S/P R TKR 12/31/22 for a total of 23 visit(s). Discharge Date: Please see the following information for a summary of their discharge status. Subjective Subjective: PATIENT STATES SHE PURCHASED A [employer] AND IS READY TO CONTINUE ON HER OWN. PATIENT REPORTS HER KNEE WAS STIFF AND SORE WHEN SHE CAME IN TODAY BUT NO PAIN AFTER EXERCISE SESSION. 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 Pain R knee: Pain Intensity (Out of 10): 1 Overall Improvement % Improvement: 95 Objective Objective/Function: PATIENT WAS SEEN TODAY FOR RE-ASSESSMENT OF PROGRESS TOWARD THE SET PT GOALS AND THE NEED FOR FURTHER PHYSICAL THERAPY VS READINESS FOR DISCHARGE. UPON EXAM TODAY ALL PT GOALS HAVE BEEN MET AND PATIENT IS APPROPRIATE FOR AND AGREEABLE TO DISCHARGE. R KNEE ROM IN SUPINE WITH A HEEL SLIDE: FULL EXTENSION TO 123 DEG FLEXION. R LE STRENGTH IS 5/5 AND PATIENT IS INDEP WITH A GYM EX PROGRAM. PATIENT HAS NORMALIZED GAIT PATTERN ON LEVEL SURFACES. SHE IS ABLE TO GO UP AND DOWN STEPS RECIP WITH ONE HR BUT CONTINUES TO HAVE DEVIATIONS WITH R LE COMPARED TO LEFT. Goals Goal 1:: PATIENT TO BE INDEP WITH HEP Goal Progress: Goal Met Goal 2:: PATIENT TO HAVE DECREASED EDEMA IN RLE Goal Progress: Goal Met Goal 3:: PATIENT TO HAVE INCREASED R KNEE ROM TO 0-120 FLEX Goal Progress: Goal Met Goal 4:: PATIENT TO HAVE INCREASED RLE STRENGTH TO 5/5 THROUGHOUT ALLOWING FOR INCREASED STABILITY WITH ALL GAIT AND WORK ACTIVITIES Goal Progress: Goal Met Goal 5:: PATIENT TO HAVE NORAML GAIT PATTERN WITHOUT USE OF AD Goal Progress: Goal Met Goal 6:: PATIENT TO NEGOTIATE STEPS WITH 1 HR WITH RECIPROCAL PATTERN WITHOUT LIMITATIONS. Goal Progress: Goal Met Plan Plan: CONTINUE PT 2X'S A WEEK X 2 WKS FOR STRENGTHENING PROGRESSION WORKING TOWARD INDEP GYM PROGRAM TOLERATED. PROVIDE GYM LOG. CONTINUE WITH ROM/STRETCHING INTO END-RANGE. D/C Information d/c sentence: If there are questions or concerns regarding this patient's physical therapy, please feel free to call me at [phone]. Thank you for the referral of this patient. Sincerely, Agnieszka Barfield, PT, Cert MDT Balance/Gait/Functio nal tests Balance/Special Test Scores WOMAC Total Score: 6 WOMAC Percentage: 93.7500 Improvement % Improvement: 95 03/03/23 1753 CC: Dr. Vinnie Ritchie MD; MATTHIAS Ibrahim SILVIA Signed Normal [facility] Re-Evaluation - PT (1)on Re-Evaluation - PT (1) [facility] Physical Therapy [facility] [address] [place] [address] [address] [place] [address] / REEVALUATION / MEDICARE RECERTIFICATION PHYSICAL THERAPY MR#: [id number] Acct: [id number] Name: RADHA IBRAHIM Rep #: [id number] : 1965 57 From: Agnieszka Barfield PT, Cert. MDT Referring Dr.: MATTHIAS Ibrahim Status:DIS RCR Insurance: [employer] SELF PAY INSURANCE Re-Evaluation Intro: MATTHIAS Ibrahim, It has been my pleasure to treat RADHA IBRAHIM over the last 19 visits for S/P R TKR 12/31/22. Please see the progress note below for an update on the physical therapy plan of care! Subjective Subjective: FOR THE MOST PART THE PAIN IS GONE. BACK TO WORK [employer]. IT IS GOING WELL SO FAR. POST OP FOLLOW UP LAST FRIDAY AND HELPED HER UNDERSTAND THE SORENESS SHE WAS/IS HAVING. STILL GETS STIFF AFTER SITTING. WOULD LIKE TO CONTINUE PT FOR STRENGTHENING AND TO BECOME INDEP WITH A PROGRAM TO CONTINUE ON HER OWN. LOOKING INTO A MEMBERSHIP HERE AT [facility]. Objective Objective/Function: PATIENT WAS SEEN TODAY FOR RE-ASSESSMENT OF PROGRESS TOWARD THE SET PT GOALS AND THE NEED FOR FURTHER PHYSICAL THERAPY VS READINESS FOR DISCHARGE. PATIENT IS IMPROVING. SHE SHE IS WALKING WITHOUT AD AND ABLE TO GO UP AND DOWN STEPS RECIP WITH ONE HR BUT STILL NOT WITHOUT DEVIATIONS. SHE HAS DECREASED ECCENTRIC CONTROL DESCENDING STEPS WHEN LEADING DOWN WITH L LE ON STEPS AND A MILD LIMP ON R LE ON LEVEL SURFACES. WOMAC score: 6/96 R knee flexion: 120 degrees in supine with a heel slide W/assist. R knee ext AROM: FULL Moderate R knee and mild lower leg/ankle edema. R knee flex MMT; 4/5 R knee ext MMT 4/5 R hip MMT 5/5 R ankle MMT 5/5 PATIENT IS A GOOD CANDIDATE TO CONTINUE PT PER POC BELOW AND PATIENT IS AGREEABLE. Plan Plan Plan: CHECK TO MAKE SURE PATIENT BRINGS NEW PT ORDER FROM FROM HOME AND HAVE SCANNED INTO CHART. CONTINUE PT 2X'S A WEEK X 2 WKS FOR STRENGTHENING PROGRESSION WORKING TOWARD INDEP GYM PROGRAM TOLERATED. PROVIDE GYM LOG. CONTINUE WITH ROM/STRETCHING INTO END-RANGE. Balance/Gait/Functio nal tests Balance/Special Test Scores WOMAC Total Score: 6 WOMAC Percentage: 93.7500 Goals Goals Goal 1:: PATIENT TO BE INDEP WITH HEP Goal Time Frame: 4-6 Weeks Goal Progress: Progressing Goal 2:: PATIENT TO HAVE DECREASED EDEMA IN RLE Goal Time Frame: 4-6 Weeks Goal Progress: Progressing Goal 3:: PATIENT TO HAVE INCREASED R KNEE ROM TO 0-120 FLEX Goal Time Frame: 6-8 Weeks Goal Progress: Goal Met Goal 4:: PATIENT TO HAVE INCREASED RLE STRENGTH TO 5/5 THROUGHOUT ALLOWING FOR INCREASED STABILITY WITH ALL GAIT AND WORK ACTIVITIES Goal Time Frame: 4-6 Weeks Goal Progress: Progressing Goal 5:: PATIENT TO HAVE NORAML GAIT PATTERN WITHOUT USE OF AD Goal Time Frame: 4-6 Weeks Goal Progress: Progressing Goal 6:: PATIENT TO NEGOTIATE STEPS WITH 1 HR WITH RECIPROCAL PATTERN WITHOUT LIMITATIONS. Goal Time Frame: 6-8 Weeks Goal Progress: Progressing Anticipated Interventions Anticipated Interventions Patient/Client Instruction: Educate patient on: Condition, Plan of Care and Risk Factors For the Purpose of:: To improve self management Therapeutic Exercise to Include: Strength training, Endurance training, Balance training, Body mechanics, Flexibilty training, Gait and locomotor training, Passive ROM and Active ROM For the Purpose of:: To decrease pain, To decrease swelling/inflammatio n, To increase ROM, To improve nutrient delivery to tissue, To increase oxygenation perfusion, To improve muscle performance and motor function, To improve ability to perform ADL's, To increase tolerance to activity/condition/p osition, To improve performance and independence with ADL's, To improve gait and locomotor functions, To improve health of tissue, To decrease soft tissue restriction and To increase flexibility/ROM Manual Therapy Techniques to Include: Mobilization and Soft tissue mobilization For the Purpose of:: To decrease pain, To decrease swelling/inflammatio n and To increase ROM Cryotherapy (ice pack, ice massage): Yes For the Purpose of:: To decrease swelling/inflammatio n Re-Evaluation Ending Re-evaluation ending: Please do not hesitate to contact me at [phone] by phone or if you have questions or concerns regarding this new plan of care! Sincerely, Agnieszka Barfield, PT, Cert MDT 02/19/23 1411 CC: Dr. Vinnie Ritchie MD; MATTHIAS Ibrahim SILVIA Signed For Medicare only, by signing this I certify the plan of care. Physicians Signature Date Normal [facility] Re-Evaluation - PT (1)on Re-Evaluation - PT (1) [facility] Physical Therapy [facility] [address] [place] [address] / REEVALUATION / MEDICARE RECERTIFICATION PHYSICAL THERAPY MR#: [id number] Acct: [id number] Name: RADHA IBRAHIM Rep #: [id number] : 1965 57 From: Agnieszka Barfield PT, Cert. MDT Referring Dr.: MATTHIAS Ibrahim Status:DIS RCR Insurance: [employer] SELF PAY INSURANCE Re-Evaluation Intro: MATTHIAS Ibrahim, It has been my pleasure to treat RADHA IBRAHIM over the last 10 visits for S/P R TKR 12/31/22. Please see the progress note below for an update on the physical therapy plan of care! Subjective Subjective: PATIENT REPORTS EVERYTHING HAS IMPROVED. SHE STATES SHE CAN GET IN AND OUT OF THE CAR, GET IN AND OUT OF THE SHOWER, WALK AND BEND HER KNEE A LOT BETTER. I FEEL LIKE I AM GETTING A LOT BETTER. SHE REPORTS SHE IS DOING HER FAITHFULLY AND HER HELPS HER ON THE WEEKENDS. SHE STATES IT FEELS EVEN BETTER WHEN SHE GETS HELP STRETCHING. SHE DENIES HAVING ANY PROBLEMS OR FEELING LIKE ANYTHING IS GETTING WORSE. SHE REPORTS THE THERAPY SESSIONS ARE CHALLENGING BUT IN A GOOD WAY BECAUSE SHE IS IMPROVING OVER-ALL. Objective Objective/Function: PATIENT WAS SEEN TODAY FOR RE-ASSESSMENT OF PROGRESS TOWARD THE SET PT GOALS AND THE NEED FOR FURTHER PHYSICAL THERAPY VS READINESS FOR DISCHARGE. PATIENT IS IMPROVING. SHE SHE IS WALKING WITHOUT AD NOW AND ABLE TO GO UP AND DOWN STEPS RECIP WITH ONE HR BUT NOT WITHOUT DEVIATIONS. SHE HAS DECREASED WEIGHTBEARING TIME ON THE R LE WITH GAIT WITH A MILD LIMP AND AND DECREASED ECCENTRIC CONTROL AND ROM DESCENDING STEPS WHEN LEADING WITH L LE. WOMAC score: 34/96 R knee flexion AROM: 105 degrees in supine with a heel slide. R knee ext AROM: -1 degree with quad set and heel elevation. Moderate R knee and mild lower leg/ankle edema. R knee flex MMT; 3+/5 R knee ext MMT 3-/5 R hip MMT 4-/5 R ankle MMT 4+/5 Plan Plan Plan: PROGRESS ROM TO 120 DEG AT 6 WKS POSTOP TOLERATED. CONTINUE LE STRENGTHENING. CONTINUE GAIT TRAINING INCLUDING STAIR TRAINING. ICE/EDEMA CONTROL. Balance/Gait/Functio nal tests Balance/Special Test Scores WOMAC Total Score: 34 WOMAC Percentage: 64.5900 Goals Goals Goal 1:: PATIENT TO BE INDEP WITH HEP Goal Time Frame: 4-6 Weeks Goal Progress: Progressing Goal 2:: PATIENT TO HAVE DECREASED EDEMA IN RLE Goal Time Frame: 4-6 Weeks Goal Progress: Progressing Goal 3:: PATIENT TO HAVE INCREASED R KNEE ROM TO 0-120 FLEX Goal Time Frame: 6-8 Weeks Goal Progress: Progressing Goal 4:: PATIENT TO HAVE INCREASED RLE STRENGTH TO 5/5 THROUGHOUT ALLOWING FOR INCREASED STABILITY WITH ALL GAIT AND WORK ACTIVITIES Goal Time Frame: 4-6 Weeks Goal Progress: Progressing Goal 5:: PATIENT TO HAVE NORAML GAIT PATTERN WITHOUT USE OF AD Goal Time Frame: 4-6 Weeks Goal Progress: Progressing Goal 6:: PATIENT TO NEGOTIATE STEPS WITH 1 HR WITH RECIPROCAL PATTERN WITHOUT LIMITATIONS. Goal Time Frame: 6-8 Weeks Goal Progress: Progressing Anticipated Interventions Anticipated Interventions Patient/Client Instruction: Educate patient on: Condition, Plan of Care and Risk Factors For the Purpose of:: To improve self management Therapeutic Exercise to Include: Strength training, Endurance training, Balance training, Body mechanics, Flexibilty training, Gait and locomotor training, Passive ROM and Active ROM For the Purpose of:: To decrease pain, To decrease swelling/inflammatio n, To increase ROM, To improve nutrient delivery to tissue, To increase oxygenation perfusion, To improve muscle performance and motor function, To improve ability to perform ADL's, To increase tolerance to activity/condition/p osition, To improve performance and independence with ADL's, To improve gait and locomotor functions, To improve health of tissue, To decrease soft tissue restriction and To increase flexibility/ROM Manual Therapy Techniques to Include: Mobilization and Soft tissue mobilization For the Purpose of:: To decrease pain, To decrease swelling/inflammatio n and To increase ROM Cryotherapy (ice pack, ice massage): Yes For the Purpose of:: To decrease swelling/inflammatio n Re-Evaluation Ending Re-evaluation ending: Please do not hesitate to contact me at [phone] by phone or if you have questions or concerns regarding this new plan of care! Sincerely, Agnieszka Barfield, PT, Cert MDT 01/27/23 0849 CC: Dr. Vinnie Ritchie MD; MATTHIAS Ibrahim SILVIA Signed For Medicare only, by signing this I certify the plan of care. Physicians Signature Date Normal [facility] Inital Evaluation (1) - PTon 01-12-2023 Inital Evaluation (1) - PT [facility] Physical Therapy [facility] [address] [place] [address] / REHABILITATION SERVICES INITIAL EVALUATION MR#: [id number] Acct: [id number] Name: RADHA IBRAHIM Rep #: [id number] : 1965 57 From: Agnieszka Barfield PT, Cert. MDT Referring Dr.: MATTHIAS Ibrahim Status: DIS RCR Insurance: [employer] SELF PAY INSURANCE Patient's Visit Information Visit Information Visit Information: RADHA IBRAHIM is a 57 year old F referred to Physical Therapy by MATTHIAS Ibrahim with a diagnosis of S/P R TKR 12/31/22. Date of Evaluation: 01/02/23 Physical Therapist: Agnieszka Barfield PT, Cert MDT Visit Plan Frequency: 2-3x /Week Duration: 4-6 Weeks Plan: WEIGHTBEARING TOLERATED. LIMIT FLEXION TO 90 DEGREES FOR 2 WKS POSTOPERATIVELY (01/14/23). AFTER 2 WKS CAN BEGIN PROGRESSING ROM 15 DEGREES EVERY 2 WKS WITH GOAL OF 120 DEG AT 6 WKS POSTOP. ADD IN ICE FOR EDEMA CONTROL AND QUAD ACTIVATION. PROGRESS GAIT TO LRD TOLERATED. Subjective Subjective: Work/Leisure: [employer] IN THE OFFICE WITH OPTION TO WORK REMOTE A FEW DAYS A WEEK. CURRENTLY OFF WORK WITH TENTATIVE RTW DATE OF 01/21/23. 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 [facility] HOME. Disability: NO Present symptoms: CONSTANT R KNEE PAIN. INTERMITTENT LOW BACK PAIN. Present since: ABOUT 6 YEARS Pain Scale: WORST 6/10, LEAST 2/10 Currently: 4/10 Commenced as a result of: FALL 2016 (DR. FELIPE - MEDIAL RETINACULUM REPAIR) BUT ALREADY HAD ARTHRITIS STARTING. Worse: BENDING THE KNEE. PROLONGED STANDING AND WALKING. Better: ICE AND ELEVATION. KEEPING IT STRAIGHT. Disturbed sleep: YES Previous history/Previous treatment: SURGERY STATED ABOVE. CORTISONE SHOT ABOUT A YEAR AND A HALF AGO THAT HELP WITH THE PAIN SOME TEMPORARILY. Treatment this episode: R TKR 12/31/22 Gait: WBAT WITH FWW. Bowel or Bladder Dysfunction: NO Accidents: FALL ABOVE Unexplained weight loss: NO PMH/Recent major surgery: HTN, R RCT, R WRIST ORIF AND R ANKLE ORIF ALL IN 2017 WHEN HAD FALL AND R KNEE SX. OTHER: PATIENT REPORTS COMPLIANCE WITH HOME EX'S GIVEN AT HOSPITAL X 15 REPS. GOT HOME AT 3 PM YESTERDAY AND HAS DONE EX'S AT HOME TWICE - AP'S, QS'S, GS'S AND SLR'S. HAS NOT DONE HEEL SLIDES AT HOME YET. Objective Objective: GAIT: THIS PATIENT AMBULATES INDEP'LY INTO PT TODAY WITH A FWW, DECREASED CADANCE and PWB ON R LE. NO LOB. WOMAC score: 60/96 TU.32 SEC R knee flexion AROM: 73 degress R knee ext AROM: -10 R knee flex MMT; 3-/5 R knee ext MMT 3-/5 R hip MMT 3+/5 R ankle MMT 4/5 L MMT: GROSSLY 5/5 Sensory deficit: L LE LIGHT TOUCH SENSATION INTACT. R LE GROSSLY INTACT BY TESTING IMPAIRED BY WOUND VAC AND bandaging. Observation: No obvious signs of infection. Girth measurements also impaired by Wound Vac. TREATMENT: HEP CHECK AND ENCOURAGEMENT TO INCLUDE HEEL SLIDES AND CONTINUE TO AVOID PROPPING UNDER KNEE SO TO ENCOURAGE FULL EXTENSION. GAIT TRAINING FOR WBAT ENCOURAGING HEEL STRIKE, FOOT FLAT, TOE OFF PATTERNING MUCH POSSIBLE. PATIENT DID REALLY WELL WITH THIS. OVER ALL SHE DEMONSTRATES/COMMUNI CATES A GOOD UNDERSTANDING OF ALL INSTRUCTIONS AFTER GIVEN AND TOLERATED EVALUSTION WELL. Balance/Special Test Scores WOMAC Total Score: 60 WOMAC Percentatge: 37.5000 Goals Goal 1:: PATIENT TO BE INDEP WITH HEP Goal Time Frame: 4-6 Weeks Goal 2:: PATIENT TO HAVE DECREASED EDEMA IN RLE Goal Time Frame: 4-6 Weeks Goal 3:: PATIENT TO HAVE INCREASED R KNEE ROM TO 0-120 FLEX Goal Time Frame: 6-8 Weeks Goal 4:: PATIENT TO HAVE INCREASED RLE STRENGTH TO 5/5 THROUGHOUT ALLOWING FOR INCREASED STABILITY WITH ALL GAIT AND WORK ACTIVITIES Goal Time Frame: 4-6 Weeks Goal 5:: PATIENT TO HAVE NORAML GAIT PATTERN WITHOUT USE OF AD Goal Time Frame: 4-6 Weeks Goal 6:: PATIENT TO NEGOTIATE STEPS WITH 1 HR WITH RECIPROCAL PATTERN WITHOUT LIMITATIONS. Goal Time Frame: 6-8 Weeks Rehabilitation Potential Physical Therapy Diagnosis: PATIENT HAS SIGNS AND SYMPTOMS CONSISTENT WITH R TKA. SHE HAS SUBSEQUENT HYPOMOBILITY, WEAKNESS, DIFFICULTY WALKING AND INCREASED PAIN. SHE WOULD BENEFIT FROM PT TO ADDRESS THE ABOVE LIMITATIONS TO TRY TO PROGRESS BACK TO HER PLOF IN TERMS OF WORK AND RECREATIONAL ACTIVITIES WITHOUT LIMITATIONS. Rehabilitation Potential: Good Anticipated Interventions Patient/Client Instruction: Educate patient on: Condition, Plan of Care and Risk Factors For the Purpose of:: To improve self management Therapeutic Exercise to Include: Strength training, Endurance training, Balance training, Body mechanics, Flexibilty training, Gait and locomotor training, Passive ROM and Active ROM For the Purpose of:: To decrease pain, To decrease swelling/inflammatio n, To increase ROM, To improve nutrient delivery to tissue, To increase oxygenation perfusion, To improve mus (more content not included)... Normal [facility] .Auto Diffon 01-01-2023 Basophil, Absolute 0.1 10 3/mcL Normal 0.0-0.2 [facility] ([place]) Comment on above: Performed By: #### A BAUTISTA, ABOG, ANSG, ALB, BMP, ADIFF, CBC, GFR #### [address] [address] Basophils/100 WBC (Bld) 0.7 % Normal 0.0-2.5 [facility] ([place]) Comment on above: Performed By: #### A BAUTISTA, ABOG, ANSG, ALB, BMP, ADIFF, CBC, GFR #### [address] [address] Eosinophil, Absolute 0.0 10 3/mcL Normal 0.0-0.4 [facility] ([place]) Comment on above: Performed By: #### A BAUTISTA, ABOG, ANSG, ALB, BMP, ADIFF, CBC, GFR #### [address] [address] Eosinophils/100 WBC (Bld) 0.0 % Normal 0.0-7.0 [facility] ([place]) Comment on above: Performed By: #### A BAUTISTA, ABOG, ANSG, ALB, BMP, ADIFF, CBC, GFR #### [address] [address] Lymphocyte, Absolute 1.2 10 3/mcL Normal 0.8-3.9 [facility] ([place]) Comment on above: Performed By: #### A BAUTISTA, ABOG, ANSG, ALB, BMP, ADIFF, CBC, GFR #### [address] [address] Lymphocytes/100 WBC (Bld) 9.1 % Low 10.0-50.0 [facility] ([place]) Comment on above: Performed By: #### A BAUTISTA, ABOG, ANSG, ALB, BMP, ADIFF, CBC, GFR #### [address] [address] Monocyte, Absolute 0.9 10 3/mcL Normal 0.2-1.0 [facility] ([place]) Comment on above: Performed By: #### A BAUTISTA, ABOG, ANSG, ALB, BMP, ADIFF, CBC, GFR #### [address] [address] Monocytes/100 WBC (Bld) 6.7 % Normal 1.7-13.0 [facility] ([place]) Comment on above: Performed By: #### A BAUTISTA, ABOG, ANSG, ALB, BMP, ADIFF, CBC, GFR #### [address] [address] Neutrophils/100 WBC (Bld) 83.5 % High 37.0-80.0 [facility] ([place]) Comment on above: Performed By: #### A BAUTISTA, ABOG, ANSG, ALB, BMP, ADIFF, CBC, GFR #### [address] [address] .GFRon 01-01-2023 GFR Non- 62 ml/min/1.73sqm Normal [facility] ([place]) Comment on above: Result Comment: GFR Population mean for , Non- Americans Ages 20-29 = 116 mL/min/1.73 sq.m. Ages 30-39 = 107 mL/min/1.73 sq.m. Ages 40-49 = 99 mL/min/1.73 sq.m. Ages 50-59 = 93 mL/min/1.73 sq.m. Ages 60-69 = 85 mL/min/1.73 sq.m. Ages 70+ = 75 mL/min/1.73 sq.m. Chronic Kidney Disease: Less than 60 mL/min/1.73 square meters End Stage Renal Disease: Less than 15 mL/min/1.73 square meters Performed By: #### A BAUTISTA, ABOG, ANSG, ALB, BMP, ADIFF, CBC, GFR #### [address] [address] GFR 75 ml/min/1.73sqm Normal [facility] ([place]) Comment on above: Result Comment: GFR Population mean for , Non- Americans Ages 20-29 = 116 mL/min/1.73 sq.m. Ages 30-39 = 107 mL/min/1.73 sq.m. Ages 40-49 = 99 mL/min/1.73 sq.m. Ages 50-59 = 93 mL/min/1.73 sq.m. Ages 60-69 = 85 mL/min/1.73 sq.m. Ages 70+ = 75 mL/min/1.73 sq.m. Chronic Kidney Disease: Less than 60 mL/min/1.73 square meters End Stage Renal Disease: Less than 15 mL/min/1.73 square meters Performed By: #### A BAUTISTA, ABOG, ANSG, ALB, BMP, ADIFF, CBC, GFR #### [address] [address] .NEUABSon 01-01-2023 Neutrophil, Absolute 11.3 10 3/mcL High 2.9-6.2 [facility] ([place]) Comment on above: Performed By: #### A BAUTISTA, ABOG, ANSG, ALB, BMP, ADIFF, CBC, GFR #### [address] [address] BMPon 01-01-2023 BUN/Creatinine Ratio 17 ratio Normal 7-27 [facility] ([place]) Comment on above: Performed By: #### A BAUTISTA, ABOG, ANSG, ALB, BMP, ADIFF, CBC, GFR #### [address] [address] Calcium [Mass/Vol] 8.5 mg/dL Normal 8.4-10.2 [facility] ([place]) Comment on above: Performed By: #### A BAUTISTA, ABOG, ANSG, ALB, BMP, ADIFF, CBC, GFR #### [address] [address] Chloride [Moles/Vol] 102 mmol/L Normal 98-107 [facility] ([place]) Comment on above: Performed By: #### A BAUTISTA, ABOG, ANSG, ALB, BMP, ADIFF, CBC, GFR #### [address] [address] CO2 [Moles/Vol] 29 mmol/L Normal 22-29 [facility] ([place]) Comment on above: Performed By: #### A BAUTISTA, ABOG, ANSG, ALB, BMP, ADIFF, CBC, GFR #### [address] [address] Creatinine [Mass/Vol] 0.93 mg/dL Normal 0.55-1.02 [facility] ([place]) Comment on above: Performed By: #### A BAUTISTA, ABOG, ANSG, ALB, BMP, ADIFF, CBC, GFR #### [address] [address] Electrolyte Balance 6.0 mEq/L Normal 4.0-15.0 [facility] ([place]) Comment on above: Performed By: #### A BAUTISTA, ABOG, ANSG, ALB, BMP, ADIFF, CBC, GFR #### [address] [address] Glucose [Mass/Vol] 117 mg/dL High 70-105 [facility] ([place]) Comment on above: Performed By: #### A BAUTISTA, ABOG, ANSG, ALB, BMP, ADIFF, CBC, GFR #### [address] [address] Potassium [Moles/Vol] 3.7 mmol/L Normal 3.5-5.1 [facility] ([place]) Comment on above: Performed By: #### A BAUTISTA, ABOG, ANSG, ALB, BMP, ADIFF, CBC, GFR #### [address] [address] Sodium [Moles/Vol] 137 mmol/L Normal 136-145 [facility]) Comment on above: Performed By: #### A BAUTISTA, ABOG, ANSG, ALB, BMP, ADIFF, CBC, GFR #### [address] [address] Urea nitrogen [Mass/Vol] 16 mg/dL Normal 7-18 [facility] ([place]) Comment on above: Performed By: #### A BAUTISTA, ABOG, ANSG, ALB, BMP, ADIFF, CBC, GFR #### [address] [address] CBCon 01-01-2023 Erythrocyte distribution width (RBC) [Ratio] 15.2 % High 11.5-14.5 [facility] ([place]) Comment on above: Performed By: #### A BAUTISTA, ABOG, ANSG, ALB, BMP, ADIFF, CBC, GFR #### [address] [address] Hematocrit (Bld) [Volume fraction] 33.9 % Low 37.0-47.0 [facility] ([place]) Comment on above: Performed By: #### A BAUTISTA, ABOG, ANSG, ALB, BMP, ADIFF, CBC, GFR #### [address] [address] Hgb 11.0 G/dL Low 12.0-16.0 [facility] ([place]) Comment on above: Performed By: #### A BAUTISTA, ABOG, ANSG, ALB, BMP, ADIFF, CBC, GFR #### [address] [address] MCH (RBC) [Entitic mass] 26.9 pg Low 27.0-31.2 [facility] ([place]) Comment on above: Performed By: #### A BAUTISTA, ABOG, ANSG, ALB, BMP, ADIFF, CBC, GFR #### [address] [address] MCHC 32.4 G/dL Low 33.0-37.0 [facility] ([place]) Comment on above: Performed By: #### A BAUTISTA, ABOG, ANSG, ALB, BMP, ADIFF, CBC, GFR #### [place] [id number] MCV (RBC) [Entitic vol] 82.9 fL Normal 80.0-94.0 [facility] ([place]) Comment on above: Performed By: #### A BAUTISTA, ABOG, ANSG, ALB, BMP, ADIFF, CBC, GFR #### [address] [address] Platelet 313 10 3/mcL Normal 130-400 [facility] ([place]) Comment on above: Performed By: #### A BAUTISTA, ABOG, ANSG, ALB, BMP, ADIFF, CBC, GFR #### [address] [address] Platelet mean volume (Bld) [Entitic vol] 7.4 fL Normal 7.4-10.4 [facility] ([place]) Comment on above: Performed By: #### A BAUTISTA, ABOG, ANSG, ALB, BMP, ADIFF, CBC, GFR #### [place] [id number] RBC 4.09 10 6/mcL Low 4.20-5.40 [facility] ([place]) Comment on above: Performed By: #### A BAUTISTA, ABOG, ANSG, ALB, BMP, ADIFF, CBC, GFR #### [address] [address] WBC 13.5 10 3/mcL High 4.6-10.8 [facility] ([place]) Comment on above: Performed By: #### A BAUTISTA, ABOG, ANSG, ALB, BMP, ADIFF, CBC, GFR #### [facility] [address] [place], [place] [address] LABORATORYOrdered By: SYSTEM SYSTEM on 01-01-2023 Basophil, Absolute 0.1 103/mcL Invalid Interpretation Code 0.0 - 0.2 10^3/mcL AO Workflow SS Basophils/100 WBC (Bld) 0.7 % Invalid Interpretation Code 0.0 - 2.5 % AO Workflow SS Calcium [Mass/Vol] 8.5 mg/dL Invalid Interpretation Code 8.4 - 10.2 mg/dL AO ADM SS Chloride [Moles/Vol] 102 mmol/L Invalid Interpretation Code 98 - 107 mmol/L AO ADM SS CO2 [Moles/Vol] 29 mmol/L Invalid Interpretation Code 22 - 29 mmol/L AO ADM SS Creatinine [Mass/Vol] 0.93 mg/dL Invalid Interpretation Code 0.55 - 1.02 mg/dL AO ADM SS Electrolyte Balance 6.0 mEq/L Invalid Interpretation Code 4.0 - 15.0 mEq/L AO ADM SS Eosinophil, Absolute 0.0 103/mcL Invalid Interpretation Code 0.0 - 0.4 10^3/mcL AO Workflow SS Eosinophils/100 WBC (Bld) 0.0 % Invalid Interpretation Code 0.0 - 7.0 % AO Workflow SS Erythrocyte distribution width (RBC) [Ratio] 15.2 % Invalid Interpretation Code 11.5 - 14.5 % AO Workflow SS GFR/1.73 sq M.predicted among blacks MDRD (S/P/Bld) [Vol rate/Area] 75 ml/min/1.73sqm Invalid Interpretation Code AO Chemistry S Comment on above: Interpretive Data: GFR Population mean for , Non- Americans Ages 20-29 = 116 mL/min/1.73 sq.m. Ages 30-39 = 107 mL/min/1.73 sq.m. Ages 40-49 = 99 mL/min/1.73 sq.m. Ages 50-59 = 93 mL/min/1.73 sq.m. Ages 60-69 = 85 mL/min/1.73 sq.m. Ages 70+ = 75 mL/min/1.73 sq.m. Chronic Kidney Disease: Less than 60 mL/min/1.73 square meters End Stage Renal Disease: Less than 15 mL/min/1.73 square meters GFR/1.73 sq M.predicted among non-blacks MDRD (S/P/Bld) [Vol rate/Area] 62 ml/min/1.73sqm Invalid Interpretation Code AO Chemistry S Comment on above: Interpretive Data: GFR Population mean for , Non- Americans Ages 20-29 = 116 mL/min/1.73 sq.m. Ages 30-39 = 107 mL/min/1.73 sq.m. Ages 40-49 = 99 mL/min/1.73 sq.m. Ages 50-59 = 93 mL/min/1.73 sq.m. Ages 60-69 = 85 mL/min/1.73 sq.m. Ages 70+ = 75 mL/min/1.73 sq.m. Chronic Kidney Disease: Less than 60 mL/min/1.73 square meters End Stage Renal Disease: Less than 15 mL/min/1.73 square meters Glucose [Mass/Vol] 117 mg/dL Invalid Interpretation Code 70 - 105 mg/dL AO ADM SS Hematocrit (Bld) [Volume fraction] 33.9 % Invalid Interpretation Code 37.0 - 47.0 % AO Workflow SS Hemoglobin (Bld) [Mass/Vol] 11.0 G/dL Invalid Interpretation Code 12.0 - 16.0 G/dL AO Workflow SS Lymphocyte, Absolute 1.2 103/mcL Invalid Interpretation Code 0.8 - 3.9 10^3/mcL AO Workflow SS Lymphocytes/100 WBC (Bld) 9.1 % Invalid Interpretation Code 10.0 - 50.0 % AO Workflow SS MCH (RBC) [Entitic mass] 26.9 pg Invalid Interpretation Code 27.0 - 31.2 pg AO Workflow SS MCHC 32.4 G/dL Invalid Interpretation Code 33.0 - 37.0 G/dL AO Workflow SS MCV (RBC) [Entitic vol] 82.9 fL Invalid Interpretation Code 80.0 - 94.0 fL AO Workflow SS Monocyte, Absolute 0.9 103/mcL Invalid Interpretation Code 0.2 - 1.0 10^3/mcL AO Workflow SS Monocytes/100 WBC (Bld) 6.7 % Invalid Interpretation Code 1.7 - 13.0 % AO Workflow SS Neutrophil, Absolute 11.3 103/mcL Invalid Interpretation Code 2.9 - 6.2 10^3/mcL AO Workflow SS Neutrophils/100 WBC (Bld) 83.5 % Invalid Interpretation Code 37.0 - 80.0 % AO Workflow SS Platelet mean volume (Bld) [Entitic vol] 7.4 fL Invalid Interpretation Code 7.4 - 10.4 fL AO Workflow SS Platelets (Bld) [#/Vol] 313 103/mcL Invalid Interpretation Code 130 - 400 10^3/mcL AO Workflow SS Potassium [Moles/Vol] 3.7 mmol/L Invalid Interpretation Code 3.5 - 5.1 mmol/L AO ADM SS RBC (Bld) [#/Vol] 4.09 106/mcL Invalid Interpretation Code 4.20 - 5.40 10^6/mcL AO Workflow SS Sodium [Moles/Vol] 137 mmol/L Invalid Interpretation Code 136 - 145 mmol/L AO ADM SS Urea nitrogen [Mass/Vol] 16 mg/dL Invalid Interpretation Code 7 - 18 mg/dL AO ADM SS Urea nitrogen/Creatinine [Mass ratio] 17 ratio Invalid Interpretation Code 7 - 27 ratio AO ADM SS WBC (Bld) [#/Vol] 13.5 103/mcL Invalid Interpretation Code 4.6 - 10.8 10^3/mcL AO Workflow SS Gel ABOon 12-31-2022 ABO/Rh Interp Positive Invalid Interpretation Code [facility] ([place]) Comment on above: Performed By: #### A BAUTISTA, ABOG, ANSG, ALB, BMP, ADIFF, CBC, GFR #### [address] [address] Gel ABSon 12-31-2022 Antibody Screen Gel Negative Normal [facility] ([place]) Comment on above: Performed By: #### A BAUTISTA, ABOG, ANSG, ALB, BMP, ADIFF, CBC, GFR #### [address] [address] LABORATORYOrdered By: Kenyetta Jain on 12-31-2022 ABO/Rh Interp Positive Invalid Interpretation Code AO BB SS Antibody Screen Gel Negative [facility]SC (12/31/22 7:52 AM) Invalid Interpretation Code AO BB SS XR KNEE 1 OR 2 VIEWS RIGHTon 12-31-2022 XR KNEE 1 OR 2 VIEWS RIGHT ORIGINAL EXAMINATION: TWO XRAY VIEWS OF THE RIGHT KNEE 12/31/2022 11:32 am COMPARISON: None. HISTORY: ORDERING SYSTEM PROVIDED HISTORY: Reason for Exam: Status Post Arthroplasty FINDINGS: A complete knee replacement is identified. The components appear well seated and intact. No acute fracture or dislocation is identified. Gas and fluid in the soft tissues could be postoperative. IMPRESSION: Surgical changes. Interpreted by: Yumiko Mishra MD Preliminary Report By: Yumiko Mishra MD Electronically signed By Yumiko Mishra MD Dictated Date: 12/31/2022 12:38:10 PM Prelim Date: 12/31/2022 12:39:10 PM Sign Date: 12/31/2022 12:39:10 PM Ordering Provider: SALVADOR Nelson [facility] ([place]) .Auto Diffon 12-09-2022 Basophil, Absolute 0.1 10 3/mcL Normal 0.0-0.2 [facility] ([place]) Comment on above: Performed By: #### A BAUTISTA, ABOG, ANSG, ALB, BMP, ADIFF, CBC, GFR #### [address] [address] Basophils/100 WBC (Bld) 0.7 % Normal 0.0-2.5 [facility] ([place]) Comment on above: Performed By: #### A BAUTISTA, ABOG, ANSG, ALB, BMP, ADIFF, CBC, GFR #### [address] [address] Eosinophil, Absolute 0.1 10 3/mcL Normal 0.0-0.4 [facility] ([place]) Comment on above: Performed By: #### A BAUTISTA, ABOG, ANSG, ALB, BMP, ADIFF, CBC, GFR #### [address] [address] Eosinophils/100 WBC (Bld) 1.3 % Normal 0.0-7.0 [facility] ([place]) Comment on above: Performed By: #### A BAUTISTA, ABOG, ANSG, ALB, BMP, ADIFF, CBC, GFR #### [address] [address] Lymphocyte, Absolute 1.2 10 3/mcL Normal 0.8-3.9 [facility] ([place]) Comment on above: Performed By: #### A BAUTISTA, ABOG, ANSG, ALB, BMP, ADIFF, CBC, GFR #### [address] [address] Lymphocytes/100 WBC (Bld) 14.9 % Normal 10.0-50.0 [facility] ([place]) Comment on above: Performed By: #### A BAUTISTA, ABOG, ANSG, ALB, BMP, ADIFF, CBC, GFR #### [address] [address] Monocyte, Absolute 0.4 10 3/mcL Normal 0.2-1.0 [facility] ([place]) Comment on above: Performed By: #### A BAUTISTA, ABOG, ANSG, ALB, BMP, ADIFF, CBC, GFR #### [address] [address] Monocytes/100 WBC (Bld) 5.0 % Normal 1.7-13.0 [facility] ([place]) Comment on above: Performed By: #### A BAUTISTA, ABOG, ANSG, ALB, BMP, ADIFF, CBC, GFR #### [address] [address] Neutrophils/100 WBC (Bld) 78.1 % Normal 37.0-80.0 [facility] ([place]) Comment on above: Performed By: #### A BAUTISTA, ABOG, ANSG, ALB, BMP, ADIFF, CBC, GFR #### [address] [address] .GFRon 12-09-2022 GFR Non- 52 ml/min/1.73sqm Normal [facility] ([place]) Comment on above: Result Comment: GFR Population mean for , Non- Americans Ages 20-29 = 116 mL/min/1.73 sq.m. Ages 30-39 = 107 mL/min/1.73 sq.m. Ages 40-49 = 99 mL/min/1.73 sq.m. Ages 50-59 = 93 mL/min/1.73 sq.m. Ages 60-69 = 85 mL/min/1.73 sq.m. Ages 70+ = 75 mL/min/1.73 sq.m. Chronic Kidney Disease: Less than 60 mL/min/1.73 square meters End Stage Renal Disease: Less than 15 mL/min/1.73 square meters Performed By: #### A BAUTISTA, ABOG, ANSG, ALB, BMP, ADIFF, CBC, GFR #### [address] [address] GFR 63 ml/min/1.73sqm Normal [facility] ([place]) Comment on above: Result Comment: GFR Population mean for , Non- Americans Ages 20-29 = 116 mL/min/1.73 sq.m. Ages 30-39 = 107 mL/min/1.73 sq.m. Ages 40-49 = 99 mL/min/1.73 sq.m. Ages 50-59 = 93 mL/min/1.73 sq.m. Ages 60-69 = 85 mL/min/1.73 sq.m. Ages 70+ = 75 mL/min/1.73 sq.m. Chronic Kidney Disease: Less than 60 mL/min/1.73 square meters End Stage Renal Disease: Less than 15 mL/min/1.73 square meters Performed By: #### A BAUTISTA, ABOG, ANSG, ALB, BMP, ADIFF, CBC, GFR #### [address] [address] .NEUABSon 12-09-2022 Neutrophil, Absolute 6.2 10 3/mcL Normal 2.9-6.2 [facility] ([place]) Comment on above: Performed By: #### A BAUTISTA, ABOG, ANSG, ALB, BMP, ADIFF, CBC, GFR #### [address] [address] ALBon 12-09-2022 Albumin Level 3.6 G/dL Normal 3.5-5.0 [facility] ([place]) Comment on above: Performed By: #### A BAUTISTA, ABOG, ANSG, ALB, BMP, ADIFF, CBC, GFR #### [address] [address] BMPon 12-09-2022 BUN/Creatinine Ratio 16 ratio Normal 7-27 [facility] ([place]) Comment on above: Performed By: #### A BAUTISTA, ABOG, ANSG, ALB, BMP, ADIFF, CBC, GFR #### [address] [address] Calcium [Mass/Vol] 9.2 mg/dL Normal 8.4-10.2 [facility] ([place]) Comment on above: Performed By: #### A BAUTISTA, ABOG, ANSG, ALB, BMP, ADIFF, CBC, GFR #### [address] [address] Chloride [Moles/Vol] 99 mmol/L Normal 98-107 [facility]) Comment on above: Performed By: #### A BAUTISTA, ABOG, ANSG, ALB, BMP, ADIFF, CBC, GFR #### [address] [address] CO2 [Moles/Vol] 29 mmol/L Normal 22-29 [facility] ([place]) Comment on above: Performed By: #### A BAUTISTA, ABOG, ANSG, ALB, BMP, ADIFF, CBC, GFR #### [address] [address] Creatinine [Mass/Vol] 1.08 mg/dL High 0.55-1.02 [facility] ([place]) Comment on above: Performed By: #### A BAUTISTA, ABOG, ANSG, ALB, BMP, ADIFF, CBC, GFR #### [address] [address] Electrolyte Balance 10.0 mEq/L Normal 4.0-15.0 [facility] ([place]) Comment on above: Performed By: #### A BAUTISTA, ABOG, ANSG, ALB, BMP, ADIFF, CBC, GFR #### [address] [address] Glucose [Mass/Vol] 102 mg/dL Normal 70-105 [facility] ([place]) Comment on above: Performed By: #### A BAUTISTA, ABOG, ANSG, ALB, BMP, ADIFF, CBC, GFR #### [address] [address] Potassium [Moles/Vol] 3.8 mmol/L Normal 3.5-5.1 [facility] ([place]) Comment on above: Performed By: #### A BAUTISTA, ABOG, ANSG, ALB, BMP, ADIFF, CBC, GFR #### [address] [address] Sodium [Moles/Vol] 138 mmol/L Normal 136-145 [facility] ([place]) Comment on above: Performed By: #### A BAUTISTA, ABOG, ANSG, ALB, BMP, ADIFF, CBC, GFR #### [address] [address] Urea nitrogen [Mass/Vol] 17 mg/dL Normal 7-18 [facility] ([place]) Comment on above: Performed By: #### A BAUTISTA, ABOG, ANSG, ALB, BMP, ADIFF, CBC, GFR #### [address] [address] CBCon 12-09-2022 Erythrocyte distribution width (RBC) [Ratio] 14.8 % High 11.5-14.5 [facility] ([place]) Comment on above: Order Comment: Pre-A dmission Testing Performed By: #### A BAUTISTA, ABOG, ANSG, ALB, BMP, ADIFF, CBC, GFR #### [address] [address] Hematocrit (Bld) [Volume fraction] 38.2 % Normal 37.0-47.0 [facility] ([place]) Comment on above: Order Comment: Pre-A dmission Testing Performed By: #### A BAUTISTA, ABOG, ANSG, ALB, BMP, ADIFF, CBC, GFR #### [address] [address] Hgb 12.6 G/dL Normal 12.0-16.0 [facility] ([place]) Comment on above: Order Comment: Pre-A dmission Testing Performed By: #### A BAUTISTA, ABOG, ANSG, ALB, BMP, ADIFF, CBC, GFR #### [address] [address] MCH (RBC) [Entitic mass] 27.1 pg Normal 27.0-31.2 [facility] ([place]) Comment on above: Order Comment: Pre-A dmission Testing Performed By: #### A BAUTISTA, ABOG, ANSG, ALB, BMP, ADIFF, CBC, GFR #### [address] [id number] MCHC 32.9 G/dL Low 33.0-37.0 [facility] ([place]) Comment on above: Order Comment: Pre-A dmission Testing Performed By: #### A BAUTISTA, ABOG, ANSG, ALB, BMP, ADIFF, CBC, GFR #### [address] [address] MCV (RBC) [Entitic vol] 82.3 fL Normal 80.0-94.0 [facility] ([place]) Comment on above: Order Comment: Pre-A dmission Testing Performed By: #### A BAUTISTA, ABOG, ANSG, ALB, BMP, ADIFF, CBC, GFR #### [address] [id number] Platelet 367 10 3/mcL Normal 130-400 [facility] ([place]) Comment on above: Order Comment: Pre-A dmission Testing Performed By: #### A BAUTISTA, ABOG, ANSG, ALB, BMP, ADIFF, CBC, GFR #### [address] [address] Platelet mean volume (Bld) [Entitic vol] 7.2 fL Low 7.4-10.4 [facility] ([place]) Comment on above: Order Comment: Pre-A dmission Testing Performed By: #### A BAUTISTA, ABOG, ANSG, ALB, BMP, ADIFF, CBC, GFR #### [address] [address] RBC 4.65 10 6/mcL Normal 4.20-5.40 [facility] ([place]) Comment on above: Order Comment: Pre-A dmission Testing Performed By: #### A BAUTISTA, ABOG, ANSG, ALB, BMP, ADIFF, CBC, GFR #### [id number] [place], [place] [address] WBC 8.0 10 3/mcL Normal 4.6-10.8 [facility] ([place]) Comment on above: Order Comment: Pre-A dmission Testing Performed By: #### A BAUTISTA, ABOG, ANSG, ALB, BMP, ADIFF, CBC, GFR #### [facility] [address] [place], [place] [address] CT KNEE W/O CONTRAST RIGHTon 12-09-2022 CT KNEE W/O CONTRAST RIGHT ORIGINAL EXAMINATION: CT OF THE RIGHT KNEE WITHOUT CONTRAST 12/09/2022 9:49 am TECHNIQUE: CT of the right hip, knee and ankle was performed without the administration of intravenous contrast. Multiplanar reformatted images are provided for review. Automated exposure control, iterative reconstruction, and/or weight based adjustment of the mA/kV was utilized to reduce the radiation dose to as low as reasonably achievable. COMPARISON: None. HISTORY ORDERING SYSTEM PROVIDED HISTORY: Reason for Exam: VALGUS DEFORMITY NOT ELSEWHERE CLASSIFIED FINDINGS: Bones: No evidence of acute fracture or dislocation involving the right hip, knee or ankle. No aggressive appearing osseous abnormality or periostitis. Soft Tissue: No significant soft tissue edema or fluid collections. Hip: The right femoral head is seated within the acetabulum. There is mild right hip joint space narrowing. Knee: There is moderate to severe tricompartmental osteoarthritis of the right knee manifested by joint space narrowing and marginal osteophyte formation. This is most pronounced in the patellofemoral compartment. There is lateral subluxation of the patella. No osseous erosions. There is evidence of a suprapatellar joint effusion. On the coronal images, there appears to be mild valgus deformity of the knee. Unfortunately, the femur and tibia are not included in the same field of view to accurately measure the degree of valgus angulation. Ankle: Previous distal fibular screw and plate fixation noted. The right ankle appears in anatomic alignment. IMPRESSION: Severe tricompartmental osteoarthritis of the right knee with patellofemoral subluxation and a joint effusion. No acute osseous abnormality of the right hip, knee or ankle. Interpreted by: Kennedy Bunch MD Preliminary Report By: Kennedy Bunch MD Electronically signed By Kennedy Bunch MD Dictated Date: 12/09/2022 10:03:18 AM Prelim Date: 12/09/2022 10:11:46 AM Sign Date: 12/09/2022 10:11:46 AM Ordering Provider: SALVADOR SHIPLEY Normal [facility] ([place]) Gel ABOon 12-09-2022 ABO/Rh Interp Positive Invalid Interpretation Code [facility]) Comment on above: Order Comment: SURG LUIZA 117 -AC Performed By: #### A BAUTISTA, ABOG, ANSG, ALB, BMP, ADIFF, CBC, GFR #### [id number] [place], [place] [address] Gel ABSon 12-09-2022 Antibody Screen Gel Negative Normal [facility]) Comment on above: Order Comment: SURG LUIZA 11/7 -AC Performed By: #### A BAUTISTA, ABOG, ANSG, ALB, BMP, ADIFF, CBC, GFR #### [facility] [address] [place], [place] [address] LABORATORYOrdered By: Danny Hernandez on 12-09-2022 ABO/Rh Interp Positive Invalid Interpretation Code AO BB SS Antibody Screen Gel Negative ABSC (12/09/22 8:41 AM) Invalid Interpretation Code AO BB SS LABORATORYOrdered By: SYSTEM SYSTEM on 12-09-2022 Albumin BCP dye [Mass/Vol] 3.6 G/dL Invalid Interpretation Code 3.5 - 5.0 G/dL AO ADM SS Basophil, Absolute 0.1 103/mcL Invalid Interpretation Code 0.0 - 0.2 10^3/mcL AO Workflow SS Basophils/100 WBC (Bld) 0.7 % Invalid Interpretation Code 0.0 - 2.5 % AO Workflow SS Calcium [Mass/Vol] 9.2 mg/dL Invalid Interpretation Code 8.4 - 10.2 mg/dL AO ADM SS Chloride [Moles/Vol] 99 mmol/L Invalid Interpretation Code 98 - 107 mmol/L AO ADM SS CO2 [Moles/Vol] 29 mmol/L Invalid Interpretation Code 22 - 29 mmol/L AO ADM SS Creatinine [Mass/Vol] 1.08 mg/dL Invalid Interpretation Code 0.55 - 1.02 mg/dL AO ADM SS Electrolyte Balance 10.0 mEq/L Invalid Interpretation Code 4.0 - 15.0 mEq/L AO ADM SS Eosinophil, Absolute 0.1 103/mcL Invalid Interpretation Code 0.0 - 0.4 10^3/mcL AO Workflow SS Eosinophils/100 WBC (Bld) 1.3 % Invalid Interpretation Code 0.0 - 7.0 % AO Workflow SS Erythrocyte distribution width (RBC) [Ratio] 14.8 % Invalid Interpretation Code 11.5 - 14.5 % AO Workflow SS GFR/1.73 sq M.predicted among blacks MDRD (S/P/Bld) [Vol rate/Area] 63 ml/min/1.73sqm Invalid Interpretation Code AO Chemistry S Comment on above: Interpretive Data: GFR Population mean for , Non- Americans Ages 20-29 = 116 mL/min/1.73 sq.m. Ages 30-39 = 107 mL/min/1.73 sq.m. Ages 40-49 = 99 mL/min/1.73 sq.m. Ages 50-59 = 93 mL/min/1.73 sq.m. Ages 60-69 = 85 mL/min/1.73 sq.m. Ages 70+ = 75 mL/min/1.73 sq.m. Chronic Kidney Disease: Less than 60 mL/min/1.73 square meters End Stage Renal Disease: Less than 15 mL/min/1.73 square meters GFR/1.73 sq M.predicted among non-blacks MDRD (S/P/Bld) [Vol rate/Area] 52 ml/min/1.73sqm Invalid Interpretation Code AO Chemistry S Comment on above: Interpretive Data: GFR Population mean for , Non- Americans Ages 20-29 = 116 mL/min/1.73 sq.m. Ages 30-39 = 107 mL/min/1.73 sq.m. Ages 40-49 = 99 mL/min/1.73 sq.m. Ages 50-59 = 93 mL/min/1.73 sq.m. Ages 60-69 = 85 mL/min/1.73 sq.m. Ages 70+ = 75 mL/min/1.73 sq.m. Chronic Kidney Disease: Less than 60 mL/min/1.73 square meters End Stage Renal Disease: Less than 15 mL/min/1.73 square meters Glucose [Mass/Vol] 102 mg/dL Invalid Interpretation Code 70 - 105 mg/dL AO ADM SS Hematocrit (Bld) [Volume fraction] 38.2 % Invalid Interpretation Code 37.0 - 47.0 % AO Workflow SS Hemoglobin (Bld) [Mass/Vol] 12.6 G/dL Invalid Interpretation Code 12.0 - 16.0 G/dL AO Workflow SS Lymphocyte, Absolute 1.2 103/mcL Invalid Interpretation Code 0.8 - 3.9 10^3/mcL AO Workflow SS Lymphocytes/100 WBC (Bld) 14.9 % Invalid Interpretation Code 10.0 - 50.0 % AO Workflow SS MCH (RBC) [Entitic mass] 27.1 pg Invalid Interpretation Code 27.0 - 31.2 pg AO Workflow SS MCHC 32.9 G/dL Invalid Interpretation Code 33.0 - 37.0 G/dL AO Workflow SS MCV (RBC) [Entitic vol] 82.3 fL Invalid Interpretation Code 80.0 - 94.0 fL AO Workflow SS Monocyte, Absolute 0.4 103/mcL Invalid Interpretation Code 0.2 - 1.0 10^3/mcL AO Workflow SS Monocytes/100 WBC (Bld) 5.0 % Invalid Interpretation Code 1.7 - 13.0 % AO Workflow SS Neutrophil, Absolute 6.2 103/mcL Invalid Interpretation Code 2.9 - 6.2 10^3/mcL AO Workflow SS Neutrophils/100 WBC (Bld) 78.1 % Invalid Interpretation Code 37.0 - 80.0 % AO Workflow SS Platelet mean volume (Bld) [Entitic vol] 7.2 fL Invalid Interpretation Code 7.4 - 10.4 fL AO Workflow SS Platelets (Bld) [#/Vol] 367 103/mcL Invalid Interpretation Code 130 - 400 10^3/mcL AO Workflow SS Potassium [Moles/Vol] 3.8 mmol/L Invalid Interpretation Code 3.5 - 5.1 mmol/L AO ADM SS RBC (Bld) [#/Vol] 4.65 106/mcL Invalid Interpretation Code 4.20 - 5.40 10^6/mcL AO Workflow SS Sodium [Moles/Vol] 138 mmol/L Invalid Interpretation Code 136 - 145 mmol/L AO ADM SS Urea nitrogen [Mass/Vol] 17 mg/dL Invalid Interpretation Code 7 - 18 mg/dL AO ADM SS Urea nitrogen/Creatinine [Mass ratio] 16 ratio Invalid Interpretation Code 7 - 27 ratio AO ADM SS WBC (Bld) [#/Vol] 8.0 103/mcL Invalid Interpretation Code 4.6 - 10.8 10^3/mcL AO Workflow SS LABORATORYOrdered By: Klaudia Chen on 12-09-2022 MRSA DNA TAY+probe Ql (Unsp spec) Not Detected 1 (12/09/22 8:41 AM) Invalid Interpretation Code Not Detected AH Auto Viro/Sero SS Comment on above: Result Comment: Note s MRSA PCR Int MRSA DNA not detected by Real-Time Polymerase Chain Reaction (PCR). A negative result may be due to intermittent colonization. Colonization may vary depending on patient treatment, patient status, or exposure to high-risk environments.As with all PCR based in vitro diagnostic tests, extremely low levels of target below the limit of detection of the assay may be detected, but results may not be reproducible. Invalid Interpretation Code Auto Viro/Sero SS MRSAPCRon 12-09-2022 MRSA (PCR) Not detected Normal Not Detected [facility] ([place]) Comment on above: Result Comment: Note s Performed By: #### M RSAPCR #### [address] [address] MRSA PCR Int Normal [facility] ([place]) Comment on above: Result Comment: MRSA DNA not detected by Real-Time Polymerase Chain Reaction (PCR). A negative result may be due to intermittent colonization. Colonization may vary depending on patient treatment, patient status, or exposure to high-risk environments. As with all PCR based in vitro diagnostic tests, extremely low levels of target below the limit of detection of the assay may be detected, but results may not be reproducible. See Below Performed By: #### M RSAPCR #### [facility] [address] [place] [id number] Basophil percentageon 2021 Bilirubin [Mass/Vol] 0.60 mg/dL 0.20-1.00 [facility] Work Phone: Comment on above: For patients on eltr ombopag therapy, use of Dimension [place] TBIL is not recommended. Chloride [Moles/Vol] 100 mmol/L 98-[address] [facility] Work Phone: Glucose [Mass/Vol] 107 mg/dL 74-106 [facility] Work Phone: Comment on above: Fasting Glucose resu lt from 100 to 125 mg/dL suggests IMPAIRED HOMEOSTASIS per A.D.A. criteria. Potassium [Moles/Vol] 3.5 mmol/L 3.5-5.1 [facility] Work Phone: Protein [Mass/Vol] 8.0 g/dL 6.4-8.2 [facility] Work Phone: Sodium [Moles/Vol] 136 mmol/L 136-145 [facility] Work Phone: Laboratory - Chemistry and C hemistry - challengeon 07-19-2021 ALP [Catalytic activity/Vol] 68 U/L 45-117 [facility] Work Phone: ALT [Catalytic activity/Vol] 24 U/L 13-56 [facility] Work Phone: CO2 [Moles/Vol] 27.0 mmol/L 21.0-32.0 [facility] Work Phone: Cobalamin (Vitamin B12) [Mass/Vol] 237 pg/mL 211-911 [facility] Work Phone: Globulin (S) [Mass/Vol] 4.4 g/dL 2.2-4.2 [facility] Work Phone: Urea nitrogen/Creatinine [Mass ratio] 15.6 mg/mg 10-20 [facility] Work Phone: No Panel Informationon 07-19 Estimated GFR (MDRD) Amer 76 mL/min >60 [facility] Work Phone: Comment on above: GFR Calc Estimated GFR (MDRD) Non-Af Amer 63 mL/min >60 [facility] Work Phone: Comment on above: Non- GFR Calc Thyroid Stimulating Hormone (TSH) 1.61 uIU/mL 0.358-3.74 [facility] Work Phone: Serum or plasma albumin quoc urement (mass/volume)on 07-19-2021 Albumin [Mass/Vol] 3.6 g/dL 3.2-5.0 [facility] Work Phone: Serum or plasma albumin/glob ulin mass ratioon 07-19-2021 Albumin/Globulin [Mass ratio] 0.8 {ratio} 0.9-2.4 [facility] Work Phone: Serum or plasma calcium quoc urement (mass/volume)on 07-19-2021 Calcium [Mass/Vol] 8.8 mg/dL 8.5-10.1 [facility] Work Phone: Serum or plasma creatinine m easurement (mass/volume)on 07-19-2021 Creatinine [Mass/Vol] 0.96 mg/dL 0.55-1.02 [facility] Work Phone: Comment on above: The validity of the calculated GFR & GFRAA in patients over 70 years has not been determined. Clinical correlation is essential. Serum or plasma urea nitroge n measurement (mass/volume)on 07-19-2021 Urea nitrogen [Mass/Vol] 15 mg/dL 7-18 [facility] Work Phone: Thin prep Papanicolaou smear with manual screeningon 07-19-2021 Thin prep Papanicolaou smear with manual screening 24 U/L 15-37 [facility] Work Phone: Thin prep Papanicolaou smear with manual screening 9 5-15 [facility] Work Phone: Glucose Glucometer (BldC) [M ass/Vol]on 03-29-2021 Glucose [Mass/Vol] 103 mg/dL 70-110 [facility] Work Phone: Comment on above: MANAGEMENT OF PATIEN T CARE PER NURSING PROTOCOL Basophil percentageon 2021 WBC (Bld) [#/Vol] 5.7 10*3/uL 4.4-11.0 [facility] Work Phone: Chloride [Moles/Vol] 102 mmol/L 98-107 [facility] Work Phone: Glucose [Mass/Vol] 92 mg/dL 74-106 [facility] Work Phone: Potassium [Moles/Vol] 3.6 mmol/L 3.5-5.1 [facility] Work Phone: Sodium [Moles/Vol] 136 mmol/L 136-145 [facility] Work Phone: Blood erythrocytes count (nu mber/volume)on 03-23-2021 RBC (Bld) [#/Vol] 4.65 10*6/uL 4.2-5.4 [facility] [place] Work Phone: Blood hemoglobin measurement (mass/volume)on 03-23-2021 Hemoglobin (Bld) [Mass/Vol] 12.9 g/dL 12.0-15.0 [facility] Work Phone: Blood platelet mean volumeon 03-23-2021 Platelet mean volume (Bld) [Entitic vol] 9.1 fL 6.2-12.0 [facility] Work Phone: Determination of erythrocyte mean corpuscular volume (MCV)on 03-23-2021 MCV (RBC) [Entitic vol] 85.6 fL 81-99 [facility] Work Phone: Hematocrit Auto (Bld) [Volum e fraction]on 03-23-2021 Hematocrit (Bld) [Volume fraction] 39.8 % 37-47 [facility] Work Phone: Laboratory - Chemistry and C hemistry - challengeon 03-23-2021 CO2 [Moles/Vol] 28.0 mmol/L 21.0-32.0 [facility] Work Phone: Magnesium [Mass/Vol] 2.2 mg/dL 1.6-2.6 [facility] Work Phone: Urea nitrogen/Creatinine [Mass ratio] 15.9 mg/mg 10-20 [facility] Work Phone: Laboratory - Hematology and Cell countson 03-23-2021 Erythrocyte distribution width (RBC) [Entitic vol] 43.8 fL 35.1-43.9 [facility] Work Phone: Erythrocyte distribution width (RBC) [Ratio] 14.1 % 11.6-14.6 [facility] Work Phone: MCH (RBC) [Entitic mass] 27.7 pg 27.0-32.0 [facility] Work Phone: MCHC Auto (RBC) [Mass/Vol]on 03-23-2021 MCHC (RBC) [Mass/Vol] 32.4 g/dL 32-36 [facility] Work Phone: No Panel Informationon 03-23 Estimated GFR (MDRD) Amer 85 mL/min >60 [facility] Work Phone: Comment on above: GFR Calc Estimated GFR (MDRD) Non-Af Amer 70 mL/min >60 [facility] Work Phone: Comment on above: Non- GFR Calc Platelets bldon 03-23-2021 Platelets (Bld) [#/Vol] 364 10*3/uL 150-450 [facility] Work Phone: Serum or plasma calcium quoc urement (mass/volume)on 03-23-2021 Calcium [Mass/Vol] 8.7 mg/dL 8.5-10.1 [facility] Work Phone: Serum or plasma creatinine m easurement (mass/volume)on 03-23-2021 Creatinine [Mass/Vol] 0.88 mg/dL 0.55-1.02 [facility] Work Phone: Comment on above: The validity of the calculated GFR & GFRAA in patients over 70 years has not been determined. Clinical correlation is essential. Serum or plasma urea nitroge n measurement (mass/volume)on 03-23-2021 Urea nitrogen [Mass/Vol] 14 mg/dL 7-18 [facility] Work Phone: Thin prep Papanicolaou smear with manual screeningon 03-23-2021 Thin prep Papanicolaou smear with manual screening 6 5-15 [facility] Work Phone: XR Chest PA and Lateralon IMPRESSION: No acute cardiopulmonary process. Librarian Special Collections: RAKESH Transcribe Date/Time: Dec 29 2019 5:25P Dictated by : DOYLE COLEMAN MD This examination was interpreted and the report reviewed and electronically signed by: DOYLE COLEMAN MD on Dec 29 2019 5:27PM [facility] [email or web address]] DIVISION OF RADIOLOGY * * *Final Report* * * DATE OF EXAM: Dec 29 2019 5:19PM WOX [id number] - XR CHEST 2V FRONTAL/LAT / PROCEDURE REASON: Suspected COVID-19 virus infection * * * * Physician Interpretation * * * * EXAMINATION: CHEST RADIOGRAPH (2 VIEW FRONTAL & LATERAL) CLINICAL HISTORY: Suspected COVID-19 virus infection MQ: XC2_6 EXAM DATE/TIME: 12/29/2019 5:19 PM COMPARISON: There are no prior studies available for comparison RESULT: Lines, tubes, and devices: None. Lungs and pleura: There is no focal consolidation or acute pleural process/fluid. There is no vascular redistribution to suggest pulmonary edema. Cardiomediastinal silhouette: The cardiac, mediastinal and hilar shadows are within normal limits. Other: The bony structures are intact DIVISION OF RADIOLOGY Provider, [facility] - 12/29/2019 * * *Final Report* * * DATE OF EXAM: Dec 29 2019 5:19PM WOX [id number] - XR CHEST 2V FRONTAL/LAT / PROCEDURE REASON: Suspected COVID-19 virus infection * * * * Physician Interpretation * * * * EXAMINATION: CHEST RADIOGRAPH (2 VIEW FRONTAL & LATERAL) CLINICAL HISTORY: Suspected COVID-19 virus infection MQ: XC2_6 EXAM DATE/TIME: 12/29/2019 5:19 PM COMPARISON: There are no prior studies available for comparison RESULT: Lines, tubes, and devices: None. Lungs and pleura: There is no focal consolidation or acute pleural process/fluid. There is no vascular redistribution to suggest pulmonary edema. Cardiomediastinal silhouette: The cardiac, mediastinal and hilar shadows are within normal limits. Other: The bony structures are intact IMPRESSION IMPRESSION: No acute cardiopulmonary process. Librarian Special Collections: RAKESH Transcribe Date/Time: Dec 29 2019 5:25P Dictated by : DOYLE COLEMAN MD This examination was interpreted and the report reviewed and electronically signed by: DOYLE COLEMAN MD on Dec 29 2019 5:27PM EST [facility] Radiology Study observation (narrative) [facility] XR Chest PA and LateralOrder ed By: [facility] Provider on 12-29-2019 [facility] Vital Signs Date Time Vital Sign Value Performing Clinician Facility 01-01-2023 11:01-0500 Body temperature 98.06 [degF] DR SALVADOR SHIPLEY MD [facility] 01-01-2023 11:01-0500 Diastolic Blood Pressure Non-Invasive [address] SALVADOR SHIPLEY MD [facility] 01-01-2023 11:01-0500 Heart rate 55 /min DR SALVADOR SHIPLEY MD [facility] 01-01-2023 11:01-0500 Respiratory rate 20 /min DR SALVADOR SHIPLEY MD [facility] 01-01-2023 11:01-0500 Systolic Blood Pressure Non-Invasive [address] SALVADOR SHIPLEY MD [facility] 01-01-2023 07:53-0500 Body temperature 98.06 [degF] DR SALVADOR SHIPLEY MD [facility] 01-01-2023 07:53-0500 Diastolic Blood Pressure Non-Invasive [address] SALVADOR SHIPLEY MD [facility] 01-01-2023 07:53-0500 Heart rate 55 /min DR SALVADOR SHIPLEY MD [facility] 01-01-2023 07:53-0500 Respiratory rate 20 /min DR SALVADOR SHIPLEY MD [facility] 01-01-2023 07:53-0500 Systolic Blood Pressure Non-Invasive [address] SALVADOR SHIPLEY MD [facility] 01-01-2023 05:00-0500 Diastolic Blood Pressure Non-Invasive [address] SALVADOR SHIPLEY MD [facility] 01-01-2023 05:00-0500 Heart rate 59 /min DR SALVADOR SHIPLEY MD [facility] 01-01-2023 05:00-0500 Respiratory rate 16 /min DR SALVADOR SHIPLEY MD [facility] 01-01-2023 05:00-0500 Systolic Blood Pressure Non-Invasive [address] SALVADOR SHIPLEY MD [facility] 12-31-2022 15:49-0500 Heart rate 79 /min DR SALVADOR SHIPLEY MD [facility] 12-31-2022 13:06-0500 Body height [address] SALVADOR SHIPLEY MD [facility] 12-31-2022 13:06-0500 Body weight 104.[address] SALVADOR SHIPLEY MD [facility] 12-31-2022 13:06-0500 Body weight 40.82 kg/m2 DR SALVADOR SHIPLEY MD [facility] 12-31-2022 13:03-0500 Heart rate 82 /min DR SALVADOR SHIPLEY MD [facility] 12-31-2022 12:20-0500 Heart rate 67 /min DR SALVADOR SHIPLEY MD [facility] 12-31-2022 11:20-0500 Body temperature 98.06 [degF] DR SALVADOR SHIPLEY MD [facility] 12-31-2022 11:15-0500 Respiratory Rate - Anes 20 br/min DR SALVDAOR SHIPLEY MD [facility] 12-31-2022 11:10-0500 Respiratory Rate - Anes 14 br/min DR SALVADOR SHIPLEY MD [facility] 12-31-2022 11:05-0500 Respiratory Rate - Anes 13 br/min DR SALVADOR SHIPLEY MD [facility] 12-31-2022 08:25-0500 Heart rate 71 /min DR SALVADOR SHIPLEY MD [facility] 12-31-2022 08:20-0500 Heart rate 65 /min DR SALVADOR SHIPLEY MD [facility] 12-31-2022 07:24-0500 Body weight 40.82 kg/m2 DR SALVADOR SHIPLEY MD [facility] 12-31-2022 07:19-0500 Body height [address] SALVADOR SHIPLEY MD [facility] 12-31-2022 07:19-0500 Body temperature 98.06 [degF] DR SALVADOR SHIPLEY MD [facility] 12-31-2022 07:19-0500 Body weight 104.[address] SALVADOR SHIPLEY MD [facility] 12-31-2022 07:19-0500 Heart rate 97 /min DR SALVADOR SHIPLEY MD [facility] 12-09-2022 07:55-[address] SALVADOR SHIPLEY MD [facility] 12-09-2022 07:55-[address] SALVADOR Akins [facility] 12-09-2022 07:55-0400 Body height [address] SALVADOR SHIPLEY MD [facility] 12-09-2022 07:55-0400 Body weight 104.[address] SALVADOR SHIPLEY MD [facility] 12-09-2022 07:55-0400 Body weight 40.82 kg/m2 DR SALVADOR SHIPLEY MD [facility] 12-09-2022 07:55-0400 Diastolic Blood Pressure Non-Invasive [address] SALVADOR SHIPLEY MD [facility] 12-09-2022 07:55-0400 Heart rate 84 /min DR SALVADOR SHIPLEY MD [facility] 12-09-2022 07:55-0400 Respiratory rate 18 /min DR SALVADOR SHIPLEY MD [facility] 12-09-2022 07:55-0400 Systolic Blood Pressure Non-Invasive [address] SALVADOR SHIPLEY MD [facility] 03-29-2021 12:27-0500 Body temperature 97.5 [degF] [facility] Work Phone: 03-29-2021 12:27-0500 Diastolic blood pressure 82 mm[Hg] [facility] Work Phone: 03-29-2021 12:27-0500 Heart rate 85 /min [facility] Work Phone: 03-29-2021 12:27-0500 Respiratory rate 16 /min [facility] Work Phone: 03-29-2021 12:27-0500 SaO2% (BldA) [Mass fraction] 94 % [facility] Work Phone: 03-29-2021 12:27-0500 Systolic blood pressure 129 mm[Hg] [facility] Work Phone: 03-29-2021 05:34-0500 Body height 160.02 cm [facility] Work Phone: 03-29-2021 05:34-0500 Body mass index (BMI) [Ratio] 42 kg/m2 [facility] Work Phone: 03-29-2021 05:34-0500 Body weight 107.6 kg [facility] Work Phone: Encounters Encounter Date Encounter Type Care Provider Facility Start: 09-30-2023 End: 09-30-2023 ambulatory Julio C Ritchie Facility:[facility] Start: 03-03-2023 End: 03-03-2023 ambulatory Parisa Calderon Facility:[facility] Start: 12-31-2022 End: 01-01-[address] JULIO C RITCHIE MD Facility:[facility] Start: 12-31-2022 End: 01-01-[address] SALVADOR SHIPLEY MD [facility] Start: 12-09-2022 End: 12-10-[address] SALVADOR SHIPLEY MD Facility:[facility] Start: 12-09-2022 End: 12-10-[address] SALVADOR SHIPLEY MD Facility:[facility] Start: 12-09-2022 End: 12-09-[address] SALVADOR SHIPLEY MD [facility] Start: 12-09-2022 End: 12-09-[address] SALVADOR SHIPLEY MD [facility] Start: 11-21-2021 End: 11-21-2021 ambulatory [facility] Work Phone: Start: 11-21-2021 End: 11-21-2021 Patient encounter procedure [facility] Start: 07-19-2021 End: 07-19-2021 Patient encounter procedure [facility], Leonor Rojas Start: 03-29-2021 End: 03-29-2021 Admission to same day surgery center [facility] Start: 12-29-2019 End: 12-29-2019 Subsequent hospital visit by physician [facility] Work Phone: Radiology Comment on above: Suspected COVID-19 v irus infection [Z20.828] Procedures Date Procedure Procedure Detail Performing Clinician Start: 12-31-[address] SALVADOR SHIPLEY MD Comment on above: Right Start: 11-21-2021 Screening mammography Start: 12-29-2019 Radiologic exam ches t 2 views Darius Bustillo APRN.CNP Work Phone: Start: 08-13-2019 Lipid 1996 panel - S bertha or [facility] [place] Work Phone: Hysterectomy DR SALVADOR Gracia MD Open reduction of fr acture of ankle with internal fixation DR SALVADOR SHIPLEY MD Comment on above: RIGHT Open reduction of fr acture with internal fixation DR SALVADOR SHIPLEY MD Comment on above: RIGHT WRIST Repair of musculoten dinous cuff of shoulder DR SALVADOR SHIPLEY MD Comment on above: RIGHT Wrist region structu re (body structure) DR SALVADOR SHIPLEY MD Plan of Treatment Date Care Activity Detail Author Start: 2038 RSV Vaccine (1 - 1-dose 75+ series) RSV Vaccine (1 - 1-dose 75+ series) [facility] Start: 08-12-2024 Lipid panel Lipid Screening [facility] Start: 10-26-2023 Covid-19 Vaccine ( season) Covid-19 Vaccine ( season) [facility] Start: 10-26-2023 Influenza vaccination Influenza Vaccine (#1) [facility] Start: 08-12-2022 Diabetes Screening Diabetes Screening [facility] Start: 03-29-2021 Anesthesia intraperitoneal lower abd w/laps nos ANESTH SURG LOWER ABDOMEN [facility] Work Phone: Start: 03-29-2021 Laps total hysterect 250 gm/< w/rmvl tube/ovary TLH W/T/O 250 G OR LESS [facility] Work Phone: Start: 2013 Shingrix Vaccine (1 of 2) Shingrix Vaccine (1 of 2) [facility] Start: 2008 Screening for malignant neoplasm of colon [facility] Start: 2003 Screening for malignant neoplasm of breast Mammogram Screening [facility] Start: 1984 Screening for malignant neoplasm of cervix Cervical Cancer Screening [facility] Start: 1982 Urine microalbumin profile DTaP,Tdap,Td Vaccine (1 - Tdap) [facility] Start: 1981 Anxiety Screening Anxiety Screening [facility] Start: 1981 Depression Screening Depression Screening [facility] Start: 1981 Hepatitis C screening Hepatitis C Screening [facility] Start: 1981 HIV screening HIV Screening [facility] Patient referral [facility] Work Phone: Immunizations Immunization Date Immunization Notes Care Provider [facility] 12-17-2022 influenza virus vaccine, unspecified formulation DR SALVADOR SHIPLEY MD [facility] 12-18-2021 influenza virus vaccine, unspecified formulation DR SALVADOR SHIPLEY MD [facility] 12-14-2020 influenza virus vaccine, unspecified formulation DR SALVADOR SHIPLEY MD [facility] 07-17-2020 tetanus toxoid, redu gita diphtheria toxoid, and acellular pertussis vaccine, adsorbed DR SALVADOR SHIPLEY MD [facility] 12-22-2019 influenza virus vaccine, unspecified formulation DR SALVADOR SHIPLEY MD [facility] 02-11-2019 influenza virus vaccine, unspecified formulation DR SALVADOR SHIPLEY MD [facility] Comment on above: Result Comment: 2022: VIS DATE: 10/08/2018 12-31-2017 influenza virus vaccine, unspecified formulation DR SALVADOR SHIPLEY MD [facility] Comment on above: Result Comment: 2022: VIS DATE: 09/30/2014 12-10-2016 influenza virus vaccine, unspecified formulation DR SALVADOR SHIPLEY MD [facility] 12-25-2015 influenza virus vaccine, unspecified formulation DR SALVADOR SHIPLEY MD [facility] 12-12-2015 influenza virus vaccine, unspecified formulation DR SALVADOR SHIPLEY MD [facility] 11-28-2015 Influenza virus vaccine [facility] Work Phone: Payers Date Payer Category Payer Self-pay [id number] 2022 Unknown [id number] 2019 Unknown [facility] PPO [id number] 2019-Present [phone] [place] [id number] PPO [id number] 2016 Private Health Insurance [id number] 1965 Unknown [id number] 1965 Unknown [id number] 1965 Unknown [id number] Private Health Insurance [facility] [id number] Unknown [id number] Unknown [id number] Social History Date Type Detail Facility [facility] Work Phone: Start: 01-17-2021 Tobacco smoking stat [facility] Unknown if ever smoked [facility] Work Phone: Start: 1965 Sex Assigned At Female [facility] Work Phone: Start: 03-01-2013 End: 12-09-2022 Tobacco smoking status Never smoked tobacco (finding) [facility] Sex Assigned At Sex [facility] Start: 03-01-2013 Tobacco use and exposure Smokeless tobacco non-user [facility] Start: 12-29-2019 Alcoholic beverage intake Not Asked [facility] Start: 12-29-2019 History of Social function [facility] Start: 12-29-2019 Tobacco use panel [facility] Start: 1965 Sex assigned at Not on file [facility] Start: 11-29-2019 End: 12-29-2019 Exposure to SARS-CoV-2 (event) Not sure [facility] Medical Equipment Procedure Code Equipment Code Equipment Origin al Text Equipment Identifier Dates Laparoscopic abdominal hysterectomy SEALANT,FLOSEAL HEMOSTATIC 5ML FDA Start: 03-29-2021 Laparoscopic abdominal hysterectomy SEALANT,FLOSEAL HEMOSTATIC 5ML FDA Start: 03-29-2021 Functional Status Date Assessment Result Facility 01-01-2023 Functional Status 2 [facility] 12-31-2022 Functional Status [facility] 12-31-2022 Functional Status Assistive Erika ce Gait belt, Walker [facility] 12-31-2022 Functional Status 1st floor bedr oom, 1st floor bathroom [facility] 12-31-2022 Functional Status [facility] 12-31-2022 Functional Status [facility] 12-31-2022 Functional Status Maintained, More than 8 hours [facility] 03-29-2021 Functional status Ambulates [facility] Work Phone: Mental Status Date Assessment Result Facility 01-01-2023 Mental Status Orientation Oriented x 4 [facility] 12-31-2022 Mental Status [facility] 12-31-2022 Mental Status [facility] 03-29-2021 Cognitive function Voice/Name [facility] Work Phone: Clinical Notes 12-29-2019 to 01-01-2023 Virginia Gray (Rt), Tech - 12/29/2019 5:00 PM EST Note Date & Type Note Facility 01-01-2023 Nurse Discharge summary Discharged to home with . Escorted to the exit via w/c per MARIUM Lee. Left at 1300. [facility] 01-01-2023 Note Date of Service 01/01/2023 Chief Complaint right knee pain Subjective Patient seen and evaluated this morning while resting in recliner, spouse at her side. Patient states that she is doing very well this morning. She had a tiny hint of nausea as she started eating breakfast this morning but states that it passed after a little while. Patient encouraged to take pain medication with food to help with that. She denies any fever, chills, cough, shortness of breath, chest pain, abdominal pain, nausea or dysuria. She has been able to empty her bladder without difficulty and is passing gas. Labs and vital signs reviewed this morning. Physical exam was unremarkable. Patient is medically optimized for discharge home today from hospitalist perspective. We will defer to primary team for final decision on discharge. All questions answered. Objective Vitals and Measurements T: 36.7 C (Oral) TMIN: 36.4 C (Oral) TMAX: 37.0 C (Oral) HR: 55(Apical) RR: 20 BP: 115/68 SpO2: 98% HT: 160 cm WT: 104.5 kg BMI: 40.82 Intake and Output 7AM Yesterday to 7AM Today Intake and Output (Last 24 hours) Intake Oral Intake 400.00 Supplement Intake 400.00 Output Urine Count 4.00 Total Summary Total Intake 800.00 Total Output 0.00 Physical Exam General: No acute distress. Patient is alert and appropriate. Skin: No rash. Skin is warm, dry and intact. HEENT: Head is normocephalic, atraumatic. Pupils are equal, round and reactive. Neck: Supple. No lymphadenopathy, thyromegaly. Lungs: Bilaterally clear but diminished without crepitation or wheeze. Unlabored. Heart: Heart is regular rhythm, S1, S2. No murmurs, gallops or rubs. Abdomen: Abdomen is soft, nontender. Bowels sounds present in all quadrants. Extremities: No clubbing, cyanosis, or edema. Peripheral pulses palpable. No calf tenderness. Right knee surgical dressing is dry and intact. Neurological: Patient is awake and alert to person, place and time. Following simple commands, moving all extremities. Weight Dosing Weight: 104.5 kg (12/31/22) Dosing Weight: 104.5 kg (12/31/22) Medications Medications (23) Active Scheduled: (11) acetaminophen 500 mg Tablet 1,000 mg 2 tab(s), Oral, q6hr aspirin 81 mg EC 81 mg 1 tab(s), Oral, BIDM docusate sodium 100 mg Capsule 100 mg 1 cap(s), Oral, BID docusate-senna (Senokot S) 50 mg-8.6 mg Tablet 2 tab(s), Oral, BID doxycycline hyclate 100 mg Capsule 100 mg 1 cap(s), Oral, q12h famotidine 20 mg tablet 20 mg 1 tab(s), Oral, qDay hydrochlorothiazide 12.5 mg tablet 12.5 mg 1 tab(s), Oral, qDay lisinopril 20 mg tablet 20 mg 1 tab(s), Oral, qDay magnesium hydroxide 8% Suspension 30 mL UD 30 mL, Oral, Daily meloxicam 7.5 mg tablet 7.5 mg 1 tab(s), Oral, BIDM multivitamin (Myadec) with minerals Therapeutic Multiple Vitamins with Minerals Tablet 1 tab(s), Oral, qDayM Continuous: (1) Lactated Ringers 1,000 mL 1,000 mL, Intravenous, 100 mL/hr PRN: (11) acetaminophen 325 mg Tablet 650 mg 2 tab(s), Oral, q4h calcium carbonate 500 mg Chewable 500 mg 1 tab(s), Chewed, TID diphenhydramine 25 mg tablet 25 mg 1 tab(s), Oral, q6h diphenhyDRAMINE 50 mg/mL (1 mL) INJ 25 mg 0.5 mL, IV Push, q6h ketorolac 30 mg/mL (1 mL) vial 15 mg 0.5 mL, IV Push, q6h morphine 2 mg/mL 1 mL syringe 2 mg 1 mL, IV Push, q1h ondansetron 2 mg/ 1 mL 2 mL INJ 4 mg 2 mL, IV Push, q8h oxycodone 5 mg tablet (immediate release) 5 mg 1 tab(s), Oral, q4h oxycodone 5 mg tablet (immediate release) 10 mg 2 tab(s), Oral, q4h prochlorperazine 10 mg/2 mL vial 5 mg 1 mL, IV Push, q6h sodium biphosphate-sodium phosphate 19 gm-7 gm Enema 133 mL, Rectal, qDay Lab Results 01/01 05:27 WBC: 13.5 H Hgb: 11.0 L Hct: 33.9 L Platelet: 313 Neutrophil %: 83.5 H Glucose Level: 117 H Sodium Level: 137 Potassium Level: 3.7 BUN: 16 Creatinine Lvl (s): 0.93 Imaging Results and Diagnostics XR Knee 1 or 2 Views Right Result Date: December 31, 2022 Verified By: YUMIKO MISHRA MD CLINICAL STATEMENT: IMPRESSION: Surgical changes. EKG No qualifying data available. Assessment/Plan 1. Osteoarthritis Chronic, s/p right total knee arthroplasty *POD # 1. *Management per primary team. *Continue PO pain medication and antiemetics as needed. 2. Hypertension Chronic *Continue current antihypertensives. *SBP goal of 140 or less. 3. Sleep apnea Chronic *Patient did not bring her CPAP with her but feels that she will be fine without it overnight. *Monitor Sp02 overnight and place on oxygen as needed - oxygen saturations remained mid to upper 90's on room air all night. Patient seen and evaluated this morning while resting in chair. Physical exam was unremarkable. Lab results and vital signs trends reviewed and were stable. From hospitalist perspective, patient is medically optimized for discharge home today. Hospitalist service will sign-off at this time. Please feel free to re-consult service if there are any changes in condition. Thank you for including hospitalist service in the care of your patient! DVT prophylaxis with aspirin 81 mg PO BID. Code status: Full Code. Labs, diagnostic test and progress notes reviewed as noted in HPI. Plan of care discussed with patient. All questions answered. Patient verbalizes understanding and is agreeable with plan of care. Plan of care discussed with patient. All questions answered. Patient verbalizes understanding and is agreeable with plan of care. This case was discussed with collaborating physician, Dr. Geoffrey Ernandez. Time Spent 35 minutes spent reviewing past diagnostic tests, reviewing lab results, vital sign trends, medical history, reviewing medications and ordering home medications, examining patient, discussed plan of care with nursing, social science teacher, therapy and primary team, collaborating with physician, and documenting in chart. Digitally Signed by RICHARD CRAIN on 01/01/2023 01:03 PM [facility] 01-01-2023 Note Discharge Instructions Thank you for allowing [facility] to assist you with your healthcare needs. The following is important discharge information regarding your hospital visit. Your Care Team JETT COATS, SALVADOR CUEVA MD, LISA APRN-CNP Your Diagnosis Hypertension Osteoarthritis Sleep apnea Status post total right knee replacement What to do next Follow Up Appointments Follow Up with DARIO WOODY PA-C, Orthopedic When 01/13/2023 03:00 PM EST Why: This is your post-op appointment. Follow-up as scheduled. Where: [facility] [address] [place] [address]- Follow Up with [facility] When 01/02/2023 09:30 AM EST Why: This is your first physical therapy appointment. Follow-up as scheduled. Where: [address] [place] [address]- [phone] The Following Treatments Have Been Ordered for You Discharge Labs No qualifying data available. Discharge Radiology No qualifying data available. Other Therapies Physical Therapy Outpatient Eval & Treat - Future -- 01/02/23, [facility], Weightbearing as tolerated. Limit flexion to 90 degrees for 2 weeks postoperatively. After 2 weeks can begin progressing range of motion 15 degrees every 2 weeks with goal of 120 degrees x 6 weeks postoperatively., Po... Post Acute Orders No qualifying data available. Allergies Bactrim (Rash) LamISIL (Rash) Medications Please ask your primary doctor or pharmacist before taking any other medication not listed, including over the counter drugs, herbal medications, vitamins and or supplements as they may interact with your home medications. What How Much When Why Instructions Last Dose New acetaminophen (Tylenol) 1,000 Milligram by mouth Three (3) times a day not to exceed 3000 mg/ day 01/01 9AM New aspirin (aspirin 81 mg oral delayed release tablet) 1 tab(s) by mouth Two (2) times a day Duration: 30 Days Take 81 mg aspirin twice daily with food for 4 weeks postoperatively for DVT prophylaxis. Pickup at [facility]pharmacy #[id number] 01/01 9AM New docusate-senna (Senokot S 50 mg-8.6 mg oral tablet) 2 tab(s) by mouth Two (2) times a day Duration: 3 Days Take until first bowel movement, then as needed Pickup at [facility]/pharmacy #[id number] 01/01 9AM New doxycycline (doxycycline hyclate 100 mg oral capsule) 1 cap by mouth Every 12 hours Duration: 14 Days Pickup at [facility]pharmacy [id number] 01/01 9AM New famotidine (Pepcid 20 mg oral tablet) 1 tab(s) by mouth Once a day Pickup at [facility]pharm[id number] 01/01 9AM New meloxicam (Mobic 7.5 mg oral tablet) 1 tab(s) by mouth Twice daily with meals Duration: 30 Days Do not take any other nonsteroidal anti-inflammatories while on meloxicam/ Mobic Pickup at [facility]/pharmacy [id number] Start Tomorrow New oxyCODONE (oxyCODONE 5 mg oral tablet ( IMMEDIATE release )) See instructions Status post total right knee replacement 1-2 tab(s) Oral q4h Pickup at [facility]pharm[id number] 01/01 12PM Unchanged cholecalciferol (Vitamin D3) 100 Microgram by mouth Every day None While Here Unchanged cyanocobalamin (Vitamin B12) 50 Microgram by mouth Once a day None While Here Unchanged hydrochlorothiazide-lisinopril (hydrochlorothiazide-lisinopril 12.5 mg-20 mg oral tablet) 1 tab(s) by mouth Two (2) times a day 01/01 9AM Unchanged multivitamin (Multivitamin) 1 tab(s) by mouth Every day None While Here Pharmacy Information [facility]/pharmacy #[id number]: [address] [place], [place] [id number] [phone] What How Much When Comments Stop Taking estradiol topical (estradiol 0.1 mg/ g vaginal cream) 1 Applicatorful Vaginal Every week Please take this list to your next doctor s visit. Bring all medications you take, including over the counter medications, herbals and other supplements with you to your doctor s visit. Patients and families are reminded to discard old lists and to update any records with all medication providers or retail pharmacies. Medication Leaflets doxycycline (oral/injection) (DOX i BRANNON cook) Acticlate, Adoxa, Alodox, Avidoxy, Doryx, Doryx MPC, Lymepak, Mondoxyne NL, Monodox, Morgidox, Morgidox [id number], Morgidox [id number], Okebo, Oracea, Targadox, Vibramycin, Vibramycin Monohydrate What is the most important information I should know about doxycycline? You should not take this medicine if you are allergic to any tetracycline antibiotic. Children younger than 8 years old should use doxycycline only in cases of severe or life-threatening conditions. This medicine can cause permanent yellowing or graying of the teeth in children Using doxycycline during could harm the unborn baby or cause permanent tooth discoloration later in the baby's life. What is doxycycline? Doxycycline is a tetracycline antibiotic that Doxycycline is used to treat many different bacterial infections, such as acne, urinary tract infections, intestinal infections, eye infections, gonorrhea, chlamydia, periodontitis (gum disease), and others. Doxycycline is also used to treat blemishes, bumps, and acne-like lesions caused by rosacea. Doxycycline will not treat facial redness caused by rosacea. Some forms of doxycycline are used to prevent malaria, to treat anthrax, or to treat infections caused by mites, ticks, or lice. Doxycycline may also be used for purposes not listed in this medication guide. What should I discuss with my healthcare provider before taking doxycycline? You should not take this medicine if you are allergic to doxycycline or other tetracycline antibiotics such as demeclocycline, minocycline, tetracycline, or tigecycline. Tell your doctor if you have ever had: liver disease; kidney disease; asthma or sulfite allergy; increased pressure inside your skull; or if you also take isotretinoin, seizure medicine, or a blood thinner such as warfarin (Coumadin). If you are using doxycycline to treat gonorrhea, your doctor may test you to make sure you do not also have syphilis, another sexually transmitted disease. Taking this medicine during may affect tooth and bone development in the unborn baby. Taking doxycycline during the last half of can cause permanent tooth discoloration later in the baby's life. Tell your doctor if you are or if you become . Doxycycline can make control pills less effective. Ask your doctor about using a non-hormonal control (condom, diaphragm with spermicide) to prevent . Doxycycline can pass into breast milk and may affect bone and tooth development in a nursing infant. Do not breastfeed while you are taking doxycycline. Doxycycline can cause permanent yellowing or graying of the teeth in children younger than 8 years old. Children should use doxycycline only in cases of severe or life-threatening conditions such as anthrax or [place] spotted fever. The benefit of treating a serious condition may outweigh any risks to the child's tooth development. How should I take doxycycline? Follow all directions on your prescription label and read all medication guides or instruction sheets. Use the medicine exactly as directed. Take doxycycline with a full glass of water. Drink plenty of liquids while you are taking doxycycline. Read and carefully follow any Instructions for Use provided with your medicine. Ask your doctor or pharmacist if you do not understand these instructions. Most brands of doxycyline may be taken with food or milk if the medicine upsets your stomach. Different brands of doxycycline may have different instructions about taking them with or without food. Take Oracea on an empty stomach, at least 1 hour before or 2 hours after a meal. You may need to split a doxycycline tablet to get the correct dose. Follow your doctor's instructions. Swallow a delayed-release capsule or tablet whole. Do not crush, chew, break, or open it. Measure liquid medicine with the dosing syringe provided, or with a special dose-measuring spoon or medicine cup. If you do not have a dose-measuring device, ask your pharmacist for one. If you take doxycycline to prevent malaria: Start taking the medicine 1 or 2 days before entering an area where malaria is common. Continue taking the medicine every day during your stay and for at least 4 weeks after you leave the area. Doxycycline is usually given by injection only if you are unable to take the medicine by mouth. A healthcare provider will give you this injection as an infusion into a vein. Use this medicine for the full prescribed length of time, even if your symptoms quickly improve. Skipping doses can increase your risk of infection that is resistant to medication. Doxycycline will not treat a viral infection such as the flu or a common cold. Store at room temperature away from moisture, heat, and light. Throw away any unused medicine after the expiration date on the label has passed. Using doxycycline can cause damage to your kidneys. What happens if I miss a dose? Take the medicine as soon as you can, but skip the missed dose if it is almost time for your next dose. Do not take two doses at one time. What happens if I overdose? Seek emergency medical attention or call the Poison Help line at . What should I avoid while taking doxycycline? Do not take iron supplements, multivitamins, calcium supplements, antacids, or laxatives within 2 hours before or after taking doxycycline. Avoid taking any other antibiotics with doxycycline unless your doctor has told you to. Doxycycline could make you sunburn more easily. Avoid sunlight or tanning beds. Wear protective clothing and use sunscreen (SPF 30 or higher) when you are outdoors. Antibiotic medicines can cause diarrhea, which may be a sign of a new infection. If you have diarrhea that is watery or bloody, call your doctor. Do not use anti-diarrhea medicine unless your doctor tells you to. What are the possible side effects of doxycycline? Get emergency medical help if you have signs of an allergic reaction (hives, difficult breathing, swelling in your face or throat) or a severe skin reaction (fever, sore throat, burning in your eyes, skin pain, red or purple skin rash that spreads and causes blistering and peeling). Seek medical treatment if you have a serious drug reaction that can affect many parts of your body. Symptoms may include: skin rash, fever, swollen glands, flu-like symptoms, muscle aches, severe weakness, unusual bruising, or yellowing of your skin or eyes. This reaction may occur several weeks after you began using doxycycline. Call your doctor at once if you have: severe stomach pain, diarrhea that is watery or bloody; throat irritation, trouble swallowing; chest pain, irregular heart rhythm, feeling short of breath; little or no urination; low white blood cell counts--fever, chills, swollen glands, body aches, weakness, pale skin, easy bruising or bleeding; increased pressure inside the skull--severe headaches, ringing in your ears, dizziness, nausea, vision problems, pain behind your eyes; or signs of liver or pancreas problems--loss of appetite, upper stomach pain (that may spread to your back), tiredness, nausea or vomiting, fast heart rate, dark urine, jaundice (yellowing of the skin or eyes). Common side effects may include: nausea, vomiting, upset stomach, loss of appetite; mild diarrhea; skin rash or itching; darkened skin color; or vaginal itching or discharge. This is not a complete list of side effects and others may occur. Call your doctor for medical advice about side effects. You may report side effects to FDA at 5-592-WNH-1776. What other drugs will affect doxycycline? Sometimes it is not safe to use certain medications at the same time. Some drugs can affect your blood levels of other drugs you take, which may increase side effects or make the medications less effective. Other drugs may affect doxycycline, including prescription and sbmt-iki-avhtdav medicines, vitamins, and herbal products. Tell your doctor about all your current medicines and any medicine you start or stop using. Where can I get more information? Your pharmacist can provide more information about doxycycline. Remember, keep this and all other medicines out of the reach of children, never share your medicines with others, and use this medication only for the indication prescribed. Every effort has been made to ensure that the information provided by [email or web address] is accurate, up-to-date, and complete, but no guarantee is made to that effect. Drug information contained herein may be time sensitive. [employer] information has been compiled for use by healthcare practitioners and consumers in the [place] and therefore [employer] does not warrant that uses outside of the [place] are appropriate, unless specifically indicated otherwise. [facility] drug information does not endorse drugs, diagnose patients or recommend therapy. [facility] drug information is an informational resource designed to assist licensed healthcare practitioners in caring for their patients and/or to serve consumers viewing this service as a supplement to, and not a substitute for, the expertise, skill, knowledge and judgment of healthcare practitioners. The absence of a warning for a given drug or drug combination in no way should be construed to indicate that the drug or drug combination is safe, effective or appropriate for any given patient. [employer] does not assume any responsibility for any aspect of healthcare administered with the aid of information [employer] provides. The information contained herein is not intended to cover all possible uses, directions, precautions, warnings, drug interactions, allergic reactions, or adverse effects. If you have questions about the drugs you are taking, check with your doctor, nurse or pharmacist. Copyright [id number] [email or web address]. Version: 25.. Revision Date: 10/30/2022. famotidine (oral/injection) (fam [place] ti el) Heartburn Relief, Pepcid, Pepcid AC, Pepcid AC Maximum Strength, Zantac 360 What is the most important information I should know about famotidine? Follow all directions on the label and package. Use exactly as directed. What is famotidine? Famotidine is used to treat and prevent ulcers in the stomach and intestines. It also treats conditions in which the stomach produces too much acid, such as Aliyah-Gilliam syndrome. Famotidine also treats gastroesophageal reflux disease (GERD) and other conditions in which acid backs up from the stomach into the esophagus, causing heartburn. The Zantac 360 brand of this medicine does not contain ranitidine, a medicine that was withdrawn from market in the [place]. Famotidine may also be used for purposes not listed in this medication guide. What should I discuss with my healthcare provider before taking famotidine? Heartburn can feel like a heart attack. Get emergency medical help if you have chest pain that spreads to your jaw or shoulder. You should not use this medicine if you are allergic to famotidine or similar medicines such as ranitidine (Zantac), cimetidine (Tagamet), or nizatidine (Axid). Ask a doctor or pharmacist if this medicine is safe to use if you have: kidney disease; liver disease; cancer stomach; or long QT syndrome (in you or a family member). Ask a doctor before using this medicine if you are or . How should I take famotidine? Use exactly as directed on the label, or as prescribed by your doctor. Famotidine oral is taken by mouth. Famotidine injection is given in a vein if you are unable to take the medicine by mouth. You may take famotidine oral with or without food. Measure liquid medicine with the supplied syringe or a dose-measuring device (not a kitchen spoon). Most ulcers heal within 4 weeks of famotidine treatment, but it may take up to 8 weeks of using this medicine before your ulcer heals. Keep using the medication as directed. Call your doctor if the condition you are treating with famotidine does not improve, or if it gets worse while using famotidine. Your treatment may also include changes in diet or lifestyle habits. Follow all instructions of your doctor or dietitian. Store at room temperature away from moisture, heat, and light. Do not allow the liquid medicine to freeze. Throw away any unused famotidine liquid that is older than 30 days. What happens if I miss a dose? Take the medicine as soon as you can, but skip the missed dose if it is almost time for your next dose. Do not take two doses at one time. What happens if I overdose? Seek emergency medical attention or call the Poison Help line at . What should I avoid while taking famotidine? Drinking alcohol may increase the risk of damage to your stomach. Avoid taking other stomach acid reducers unless your doctor has told you to. However, you may take an antacid (such as Maalox, Mylanta, Gaviscon, Milk of Magnesia, Rolaids, or Tums) with famotidine. What are the possible side effects of famotidine? Get emergency medical help if you have signs of an allergic reaction: hives; difficult breathing; swelling of your face, lips, tongue, or throat. Stop using famotidine and call your doctor at once if you have: confusion, hallucinations, agitation, lack of energy; a seizure; fast or pounding heartbeats, sudden dizziness (like you might pass out); or unexplained muscle pain, tenderness, or weakness especially if you also have fever, unusual tiredness, and dark colored urine. Some side effects may be more likely in older adults and in people who have severe kidney disease. Common side effects may include: headache; dizziness; or constipation or diarrhea. This is not a complete list of side effects and others may occur. Call your doctor for medical advice about side effects. You may report side effects to FDA at 7-655-WJI-7022. What other drugs will affect famotidine? Famotidine oral can make it harder for your body to absorb other medicines you take by mouth. Tell your doctor if you are taking: cefditoren; dasatinib; delavirdine; fosamprenavir; or tizanidine (if you are taking famotidine liquid). This list is not complete. Other drugs may affect famotidine, including prescription and knms-fmz-tcmjnlo medicines, vitamins, and herbal products. Not all possible drug interactions are listed here. Where can I get more information? Your doctor or pharmacist can provide more information about famotidine. Remember, keep this and all other medicines out of the reach of children, never share your medicines with others, and use this medication only for the indication prescribed. Every effort has been made to ensure that the information provided by [email or web address] is accurate, up-to-date, and complete, but no guarantee is made to that effect. Drug information contained herein may be time sensitive. [employer] information has been compiled for use by healthcare practitioners and consumers in the [place] and therefore [employer] does not warrant that uses outside of the [place] are appropriate, unless specifically indicated otherwise. [employer]'s drug information does not endorse drugs, diagnose patients or recommend therapy. [facility] drug information is an informational resource designed to assist licensed healthcare practitioners in caring for their patients and/or to serve consumers viewing this service as a supplement to, and not a substitute for, the expertise, skill, knowledge and judgment of healthcare practitioners. The absence of a warning for a given drug or drug combination in no way should be construed to indicate that the drug or drug combination is safe, effective or appropriate for any given patient. [facility] does not assume any responsibility for any aspect of healthcare administered with the aid of information [facility] provides. The information contained herein is not intended to cover all possible uses, directions, precautions, warnings, drug interactions, allergic reactions, or adverse effects. If you have questions about the drugs you are taking, check with your doctor, nurse or pharmacist. Copyright [id number] [email or web address]. Version: . Revision Date: 09/16/2022. oxycodone (ox i KOE done) Oxaydo, OxyCONTIN, Roxicodone, RoxyBond, Xtampza ER What is the most important information I should know about oxycodone? MISUSE OF OPIOID MEDICINE CAN CAUSE ADDICTION, OVERDOSE, OR . Keep the medication in a place where others cannot get to it. Taking opioid medicine during may cause life-threatening withdrawal symptoms in the . Fatal side effects can occur if you use opioid medicine with alcohol, or with other drugs that cause drowsiness or slow your breathing. What is oxycodone? Oxycodone is an opioid pain medication used to treat moderate to severe pain. The extended-release form of oxycodone is for kdaipt-ktm-euyfk treatment of pain and should not be used on an as-needed basis for pain. Oxycodone may also be used for purposes not listed in this medication guide. What should I discuss with my healthcare provider before using oxycodone? You should not use oxycodone if you are allergic to it, or if you have: severe asthma or breathing problems; or a blockage in your stomach or intestines. You should not use oxycodone unless you are already using a similar opioid medicine and are tolerant to it. Most brands of oxycodone are not approved for use in people under 18. OxyContin should not be given to a child younger than 11 years old. Tell your doctor if you have ever had: breathing problems, sleep apnea; a head injury, or seizures; drug or alcohol addiction, or mental illness; liver or kidney disease; urination problems; or problems with your gallbladder, pancreas, or thyroid. If you use opioid medicine while you are , your baby could become dependent on the drug. This can cause life-threatening withdrawal symptoms in the baby after it is born. Babies born dependent on opioids may need medical treatment for several weeks. Ask a doctor before using opioid medicine if you are . Tell your doctor if you notice severe drowsiness or slow breathing in the nursing baby. How should I use oxycodone? Follow the directions on your prescription label and read all medication guides. Never use oxycodone in larger amounts, or for longer than prescribed. Tell your doctor if you feel an increased urge to take more of this medicine. Never share opioid medicine with another person, especially someone with a history of drug abuse or addiction. MISUSE CAN CAUSE ADDICTION, OVERDOSE, OR . Keep the medication in a place where others cannot get to it. Selling or giving away opioid medicine is against the law. Stop taking all other lujftv-kyl-wxgzs opioid pain medicines when you start taking extended-release oxycodone. Take oxycodone with food. Swallow the capsule or tablet whole to avoid exposure to a potentially fatal overdose. Do not crush, chew, break, open, or dissolve. If you cannot swallow a capsule whole, open it and sprinkle the medicine into a spoonful of pudding or applesauce. Swallow the mixture right away without chewing. Do not save it for later use. Never crush or break an oxycodone pill to inhale the powder or mix it into a liquid to inject the drug into your vein. This can cause in . Measure liquid medicine carefully. Use the dosing syringe provided, or use a medicine dose-measuring device (not a kitchen spoon). You should not stop using oxycodone suddenly. Follow your doctor's instructions about tapering your dose. Store at room temperature, away from heat, moisture, and light. Keep track of your medicine. Oxycodone is a drug of abuse and you should be aware if anyone is using your medicine improperly or without a prescription. Do not keep leftover opioid medication. Just one dose can cause in someone using this medicine accidentally or improperly. Ask your pharmacist where to locate a drug take-back disposal program. If there is no take-back program, flush the unused medicine down the toilet. What happens if I miss a dose? Since oxycodone is used for pain, you are not likely to miss a dose. Skip any missed dose if it is almost time for your next dose. Do not use two doses at one time. What happens if I overdose? Seek emergency medical attention or call the Poison Help line at . An opioid overdose can be fatal, especially in a child or other person using the medicine without a prescription. Overdose symptoms may include severe drowsiness, pinpoint pupils, slow breathing, or no breathing. Your doctor may recommend you get naloxone (a medicine to reverse an opioid overdose) and keep it with you at all times. A person caring for you can give the naloxone if you stop breathing or don't wake up. Your caregiver must still get emergency medical help and may need to perform CPR (cardiopulmonary resuscitation) on you while waiting for help to arrive. Anyone can buy naloxone from a pharmacy or local health department. Make sure any person caring for you knows where you keep naloxone and how to use it. What should I avoid while using oxycodone? Do not drink alcohol. Dangerous side effects or could occur. Avoid driving or operating machinery until you know how oxycodone will affect you. Dizziness or severe drowsiness can cause falls or other accidents. Avoid medication errors. Always check the brand and strength of oxycodone you get from the pharmacy. What are the possible side effects of oxycodone? Get emergency medical help if you have signs of an allergic reaction: hives; difficult breathing; swelling of your face, lips, tongue, or throat. Opioid medicine can slow or stop your breathing, and may occur. A person caring for you should give naloxone and/or seek emergency medical attention if you have slow breathing with long pauses, blue colored lips, or if you are hard to wake up. Call your doctor at once if you have: noisy breathing, sighing, shallow breathing, breathing that stops during sleep; a slow heart rate or weak pulse; a light-headed feeling, like you might pass out; confusion, unusual thoughts or behavior; seizure (convulsions); low cortisol levels-- nausea, vomiting, loss of appetite, dizziness, worsening tiredness or weakness; or high levels of serotonin in the body--agitation, hallucinations, fever, sweating, shivering, fast heart rate, muscle stiffness, twitching, loss of coordination, nausea, vomiting, diarrhea. Serious breathing problems may be more likely in older adults and in those who are debilitated or have wasting syndrome or chronic breathing disorders. Common side effects may include: drowsiness, headache, dizziness, tiredness; or constipation, stomach pain, nausea, vomiting. This is not a complete list of side effects and others may occur. Call your doctor for medical advice about side effects. You may report side effects to FDA at 2-275-NQJ-7797. What other drugs will affect oxycodone? You may have breathing problems or withdrawal symptoms if you start or stop taking certain other medicines. Tell your doctor if you also use an antibiotic, antifungal medication, heart or blood pressure medication, seizure medication, or medicine to treat HIV or hepatitis C. Opioid medication can interact with many other drugs and cause dangerous side effects or . Be sure your doctor knows if you also use: cold or allergy medicines, bronchodilator asthma/COPD medication, or a diuretic ('water pill'); medicines for motion sickness, irritable bowel syndrome, or overactive bladder; other opioids--opioid pain medicine or prescription cough medicine; a sedative like Valium--diazepam, alprazolam, lorazepam, Xanax, Klonopin, Versed, and others; drugs that make you sleepy or slow your breathing--a sleeping pill, muscle relaxer, medicine to treat mood disorders or mental illness; or drugs that affect serotonin levels in your body--a stimulant, or medicine for depression, Parkinson's disease, migraine headaches, serious infections, or nausea and vomiting. This list is not complete and many other drugs may affect oxycodone. This includes prescription and mllu-uui-iverhmn medicines, vitamins, and herbal products. Not all possible drug interactions are listed here. Where can I get more information? Your pharmacist can provide more information about oxycodone. Remember, keep this and all other medicines out of the reach of children, never share your medicines with others, and use this medication only for the indication prescribed. Every effort has been made to ensure that the information provided by [email or web address] is accurate, up-to-date, and complete, but no guarantee is made to that effect. Drug information contained herein may be time sensitive. [employer] information has been compiled for use by healthcare practitioners and consumers in the [place] and therefore [employer] does not warrant that uses outside of the [place] are appropriate, unless specifically indicated otherwise. [facility] drug information does not endorse drugs, diagnose patients or recommend therapy. [facility] drug information is an informational resource designed to assist licensed healthcare practitioners in caring for their patients and/or to serve consumers viewing this service as a supplement to, and not a substitute for, the expertise, skill, knowledge and judgment of healthcare practitioners. The absence of a warning for a given drug or drug combination in no way should be construed to indicate that the drug or drug combination is safe, effective or appropriate for any given patient. [employer] does not assume any responsibility for any aspect of healthcare administered with the aid of information [employer] provides. The information contained herein is not intended to cover all possible uses, directions, precautions, warnings, drug interactions, allergic reactions, or adverse effects. If you have questions about the drugs you are taking, check with your doctor, nurse or pharmacist. Copyright [id number] [email or web address]. Version: 16.. Revision Date: 09/27/2022. meloxicam (oral/injection) (murali OKS i indu) Anjeso, Mobic, Vivlodex What is the most important information I should know about meloxicam? Meloxicam can increase your risk of fatal heart attack or stroke. Do not use this medicine just before or after heart bypass surgery (coronary artery bypass graft, or CABG). Meloxicam may also cause stomach or intestinal bleeding, which can be fatal. What is meloxicam? Meloxicam is a nonsteroidal anti-inflammatory drug (NSAID) that is used to treat osteoarthritis or rheumatoid arthritis in adults. Meloxicam is also used to treat juvenile rheumatoid arthritis in children who are at least 2 years old. The Anjeso brand of meloxicam is used to treat moderate to severe pain in adults. Vivlodex is for use only in adults. Meloxicam may also be used for purposes not listed in this medication guide. What should I discuss with my healthcare provider before receiving meloxicam? Meloxicam can increase your risk of fatal heart attack or stroke. Do not use this medicine just before or after heart bypass surgery (coronary artery bypass graft, or CABG). Meloxicam may also cause stomach or intestinal bleeding, which can be fatal. Meloxicam may also cause stomach or intestinal bleeding, which can be fatal. These conditions can occur without warning while you are using meloxicam, especially in older adults. You should not use meloxicam if you are allergic to it, or if you ever had an asthma attack or severe allergic reaction after taking aspirin or an NSAID. Tell your doctor if you have ever had: heart disease, high blood pressure, high cholesterol, diabetes, or if you smoke; a heart attack, stroke, or blood clot; ulcers or stomach bleeding; asthma; kidney disease (or if you are on dialysis); liver disease; or fluid retention. If you are , you should not take meloxicam unless your doctor tells you to. Taking an NSAID during the last 20 weeks of can cause serious heart or kidney problems in the unborn baby and possible complications with your . Meloxicam may cause a delay in ovulation (the release of an egg from an ovary). You should not take meloxicam if you are undergoing fertility treatment, or are otherwise trying to get . Ask a doctor if it is safe to breastfeed while using this medicine. Meloxicam is not approved for use by anyone younger than 2 years old. How is meloxicam given? Follow all directions on your prescription label and read all medication guides or instruction sheets. Use the lowest effective dose for your condition. Meloxicam oral is taken by mouth. Meloxicam injection is given as an infusion into a vein. A healthcare provider will give you this injection. Your dose needs may change if you switch to a different brand, strength, or form of this medicine. Avoid medication errors by using only the medicine your doctor prescribes. Meloxicam doses are based on weight (especially in children and teenagers). Your dose needs may change if you gain or lose weight. If you use this medicine long-term, you may need frequent medical tests. Store meloxicam oral suspension, tablets or capsules at room temperature, away from moisture and heat. Keep the bottle tightly closed when not in use. What happens if I miss a dose? Use the medicine as soon as you can, but skip the missed dose if it is almost time for your next dose. Do not use two doses at one time. What happens if I overdose? Seek emergency medical attention or call the Poison Help line at . What should I avoid while receiving meloxicam? Drinking alcohol may increase your risk of stomach bleeding. Avoid taking aspirin while you are taking meloxicam, unless your doctor tells you to. Ask a doctor or pharmacist before using other medicines for pain, fever, swelling, or cold/flu symptoms. They may contain ingredients similar to meloxicam (such as aspirin, ibuprofen, ketoprofen, or naproxen). What are the possible side effects of meloxicam? Get emergency medical help if you have signs of an allergic reaction (hives, difficult breathing, swelling in your face or throat) or a severe skin reaction (fever, sore throat, burning eyes, skin pain, red or purple skin rash with blistering and peeling). Get emergency medical help if you have signs of a heart attack or stroke: chest pain spreading to your jaw or shoulder, sudden numbness or weakness on one side of the body, slurred speech, leg swelling, feeling short of breath. Stop using meloxicam and call your doctor at once if you have: the first sign of any skin rash, no matter how mild; shortness of breath (even with mild exertion); swelling or rapid weight gain; signs of stomach bleeding--bloody or tarry stools, coughing up blood or vomit that looks like coffee grounds; liver problems--nausea, upper stomach pain, itching, tired feeling, flu-like symptoms, loss of appetite, dark urine, [place]-colored stools, jaundice (yellowing of the skin or eyes); low red blood cells (anemia)--pale skin, unusual tiredness, feeling light-headed, cold hands and feet; or kidney problems--little or no urination, swelling in your feet or ankles, feeling tired or short of breath. Common side effects may include: stomach pain, nausea, vomiting, heartburn; diarrhea, constipation, gas; dizziness; or cold symptoms, flu symptoms. This is not a complete list of side effects and others may occur. Call your doctor for medical advice about side effects. You may report side effects to FDA at 2-233-MDA-4718. What other drugs will affect meloxicam? Ask your doctor before using meloxicam if you take an antidepressant. Taking certain antidepressants with an NSAID may cause you to bruise or bleed easily. Tell your doctor about all your other medicines, especially: cyclosporine; lithium; methotrexate; pemetrexed; sodium polystyrene sulfonate (Kayexalate); a blood thinner (warfarin, Coumadin, Jantoven); heart or blood pressure medication, including a diuretic or 'water pill'; or steroid medicine (such as prednisone). This list is not complete. Other drugs may affect meloxicam, including prescription and dzva-plh-xlsxefi medicines, vitamins, and herbal products. Not all possible drug interactions are listed here. Where can I get more information? Your doctor or pharmacist can provide more information about meloxicam. Remember, keep this and all other medicines out of the reach of children, never share your medicines with others, and use this medication only for the indication prescribed. Every effort has been made to ensure that the information provided by [employer]. ('[employer]') is accurate, up-to-date, and complete, but no guarantee is made to that effect. Drug information contained herein may be time sensitive. [employer] information has been compiled for use by healthcare practitioners and consumers in the [place] and therefore [employer] does not warrant that uses outside of the [place] are appropriate, unless specifically indicated otherwise. [employer]'s drug information does not endorse drugs, diagnose patients or recommend therapy. Consult [facility] drug information is an informational resource designed to assist licensed healthcare practitioners in caring for their patients and/or to serve consumers viewing this service as a supplement to, and not a substitute for, the expertise, skill, knowledge and judgment of healthcare practitioners. The absence of a warning for a given drug or drug combination in no way should be construed to indicate that the drug or drug combination is safe, effective or appropriate for any given patient. [employer] does not assume any responsibility for any aspect of healthcare administered with the aid of information [employer] provides. The information contained herein is not intended to cover all possible uses, directions, precautions, warnings, drug interactions, allergic reactions, or adverse effects. If you have questions about the drugs you are taking, check with your doctor, nurse or pharmacist. Copyright 5506-8335 [employer]. Version: 16.01. Revision Date: 05/01/2022. aspirin (oral) ( pir in) Aspi-Cor, Daniel Plus, Durlaza, Ecotrin, Miniprin, Vazalore What is the most important information I should know about aspirin? Aspirin can cause Alfredo's syndrome, a serious and sometimes fatal condition in children. What is aspirin? Aspirin is a salicylate (jc-AQV-we-ate) that is used to treat pain, and reduce fever or inflammation. Aspirin is sometimes used to treat or prevent heart attacks, strokes, and chest pain (angina). Aspirin should be used for these conditions only under the supervision of a doctor. Aspirin may also be used for purposes not listed in this medication guide. What should I discuss with my healthcare provider before taking aspirin? Using aspirin in a child or teenager with flu symptoms or chickenpox can cause a serious or fatal condition called Alfredo's syndrome. You should not use aspirin if you are allergic to it, or if you have: a recent history of stomach or intestinal bleeding; a bleeding disorder such as hemophilia; or if you have ever had an asthma attack or severe allergic reaction after taking aspirin or an NSAID (non-steroidal anti-inflammatory drug). Tell your doctor if you have ever had: asthma or seasonal allergies; stomach ulcers; liver disease; kidney disease; a bleeding or blood clotting disorder; gout; or heart disease, high blood pressure, or congestive heart failure. Taking aspirin during late may cause bleeding in the mother or the baby during delivery. Tell your doctor if you are or plan to become . You should not breastfeed while using (more content not included)... [facility] 01-01-2023 [facility] e instructions Patient Education 01/01/2023 07:18:17 5 - [facility] Post-op Instruction 09/2016 (01127) [facility] Post-operative Instructions PLEASE FOLLOW [facility] POST-OP INSTRUCTIONS GIVEN WATCH FOR SIGNS OF INFECTION: call the office ([phone]) if experencing any of the following: (Usually appears 36-48 hours after surgery) Increased temperature (101 degrees Fahrenheit or higher) Redness or swelling Increased uncontrolled pain Foul odor or drainage Calf discomfort Significant swelling Or if having any chest pain, shortness of breath, or difficulty breathing or swallowing call the office or go the nearest Emergency Room. If you have any questions, please call your doctor at the number listed on your follow up instructions. Form: 338A (69732) R: 05/07 Follow Up Care 09/10/2022 14:25:57 With:[employer] Address: [facility] [place] [address] [phone] When:01/02/2023 09:30:00 Comments:This is your first physical therapy appointment. Follow-up as scheduled. With:DARIO WOODY PA-C, Orthopedic Address: [facility] [address] [place] [address] [place] [address]- When:01/13/2023 15:00:00 Comments:This is your post-op appointment. Follow-up as scheduled. [facility] 01-01-2023 Note Date of Service January 01, 2023 Subjective The patient was sitting in bed upon examination. Patient denies any chest pain, shortness of breath, dizziness, lightheadedness, nausea or vomiting, or calf pain. No adverse overnight events. Pain has been controlled on medications. Patient overall is doing well this morning. She has no significant complaints. Patient does have restrictions with physical therapy with no bending greater than 90 degrees flexion. Patient also has a listed medication in the hospital that we do not have listed on our medications at [facility]. She states she does estradiol once weekly. She states she is able to stop that medication for 2 weeks. Objective Vitals and Measurements T: 36.7 C (Oral) TMIN: 36.4 C (Oral) TMAX: 37.0 C (Oral) HR: 59(Apical) RR: 16 BP: 117/69 SpO2: 97% HT: 160 cm WT: 104.5 kg BMI: 40.82 Intake and Output 7AM Yesterday to 7AM Today Intake and Output (Last 24 hours) Intake Oral Intake 400.00 Administration Information 901.16 Supplement Intake 200.00 Output Intra-Op EBL 150.00 Urine Count 4.00 Total Summary Total Intake 1501.16 Total Output 150.00 Fluid Balance 1351.16 Physical Exam Vital signs stable, afebrile. Patient does have underlying sleep apnea and did not bring her CPAP. She is doing well postoperatively. SCDs and TAYA hose are in place bilaterally Patient is able to plantarflex and dorsiflex actively Sensation is intact to saphenous, sural, superficial and deep peroneal, and tibial distribution Dressing is clean dry and intact Negative signs and symptoms of DVT, negative Homans bilaterally Weight Dosing Weight: 104.5 kg (12/31/22) Dosing Weight: 104.5 kg (12/31/22) Medications Medications (26) Active Scheduled: (14) acetaminophen 500 mg Tablet 1,000 mg 2 tab(s), Oral, q6hr aspirin 81 mg EC 81 mg 1 tab(s), Oral, BIDM bisacodyl 5 mg EC tablet 10 mg 2 tab(s), Oral, Once dexamethasone 10 mg/mL (1mL) SDV 10 mg 1 mL, IV Push, AsDirected docusate sodium 100 mg Capsule 100 mg 1 cap(s), Oral, BID docusate-senna (Senokot S) 50 mg-8.6 mg Tablet 2 tab(s), Oral, BID doxycycline hyclate 100 mg Capsule 100 mg 1 cap(s), Oral, q12h famotidine 20 mg tablet 20 mg 1 tab(s), Oral, qDay hydrochlorothiazide 12.5 mg tablet 12.5 mg 1 tab(s), Oral, qDay lisinopril 20 mg tablet 20 mg 1 tab(s), Oral, qDay magnesium hydroxide 8% Suspension 30 mL UD 30 mL, Oral, Daily meloxicam 7.5 mg tablet 7.5 mg 1 tab(s), Oral, BIDM multivitamin (Myadec) with minerals Therapeutic Multiple Vitamins with Minerals Tablet 1 tab(s), Oral, qDayM ondansetron 2 mg/ 1 mL 2 mL INJ 4 mg 2 mL, IV Push, q8h Continuous: (1) Lactated Ringers 1,000 mL 1,000 mL, Intravenous, 100 mL/hr PRN: (11) acetaminophen 325 mg Tablet 650 mg 2 tab(s), Oral, q4h calcium carbonate 500 mg Chewable 500 mg 1 tab(s), Chewed, TID diphenhydramine 25 mg tablet 25 mg 1 tab(s), Oral, q6h diphenhyDRAMINE 50 mg/mL (1 mL) INJ 25 mg 0.5 mL, IV Push, q6h ketorolac 30 mg/mL (1 mL) vial 15 mg 0.5 mL, IV Push, q6h morphine 2 mg/mL 1 mL syringe 2 mg 1 mL, IV Push, q1h ondansetron 2 mg/ 1 mL 2 mL INJ 4 mg 2 mL, IV Push, q8h oxycodone 5 mg tablet (immediate release) 5 mg 1 tab(s), Oral, q4h oxycodone 5 mg tablet (immediate release) 10 mg 2 tab(s), Oral, q4h prochlorperazine 10 mg/2 mL vial 5 mg 1 mL, IV Push, q6h sodium biphosphate-sodium phosphate 19 gm-7 gm Enema 133 mL, Rectal, qDay Lab Results 01/01 05:27 WBC: 13.5 H Hgb: 11.0 L Hct: 33.9 L Platelet: 313 Neutrophil %: 83.5 H Glucose Level: 117 H Sodium Level: 137 Potassium Level: 3.7 BUN: 16 Creatinine Lvl (s): 0.93 EKG No qualifying data available. Assessment/Plan Hypertension Osteoarthritis 1. Status post right total knee arthroplasty postop day #1 2. Continue pain medications: Tylenol, meloxicam, oxycodone. Do not take any other nonsteroidal anti-inflammatories while on meloxicam/Mobic 3. DVT prophylaxis: Take 81 mg aspirin twice daily with food for 4 weeks postoperatively for DVT prophylaxis. Patient denies past history of DVT or pulmonary embolism. Patient does use estradiol vaginally once weekly. We did discuss stopping this medication or placing her on Xarelto and continuing this medication. She states she is able to stop this for 2 weeks. She will resume this after 2 weeks and continue with the aspirin 81 mg for DVT prophylaxis. 4. Physical therapy: Weightbearing as tolerated with walker. We are limiting for the first 2 weeks no flexion greater than 90 degrees. After 2 weeks she can begin increasing range of motion 15 degrees every 2 weeks for a goal of 120 degrees x 6 weeks. New physical therapy order will be placed on chart so that she can take with her to [facility]. 5. H & H: 11.0/33.9, asymptomatic. Postoperative anemia from surgery without intraoperative complications. At this time there is no need for treatment. 6. Reactive leukocytosis: Currently 13.5, afebrile. Patient did receive Decadron intraoperatively. No clinical signs of infection. 7. Continue antibiotics due to BMI greater than 40.0: Patient will continue with doxycycline for 2 weeks postoperatively while following cultures. I discussed with the patient potential side effects with the doxycycline including hypersensitivity to the sunlight and must take appropriate precautions. Also recommended probiotic while taking the antibiotic for 2 weeks postoperatively. Patient voiced understanding and agreement. 8. Encouraged incentive spirometry 9. Continue postoperative medical management per medicine 10. Disposition: Plan will be for discharge home today as long as patient remains medically stable, tolerates therapy, and pain is controlled. She does have outpatient physical therapy established. Patient would like her prescriptions E scribed to [facility] in [facility]. She will follow-up per postoperative instructions. She will contact her office upon discharge with any concerns or questions. PT order will be placed on chart for her to take to physical therapy so they are aware of the restrictions. I have reviewed the [place] Automated Rx Reporting System (OARRS) report for this patient for refill pattern and other prescriber involvement as part of the appropriate surveillance for the provision of acute and chronic controlled medications. The report was requested and reviewed on the date of this entry, and was considered in the prescribing process This dictation was created using voice recognition software. Phonetic and/or grammatical errors may exist. Sleep apnea Digitally Signed by DARIO WOODY PA-C on 01/01/2023 07:15 AM [facility] 01-01-2023 Note Date of Service January 01, 2023 Subjective The patient was sitting in bed upon examination. Patient denies any chest pain, shortness of breath, dizziness, lightheadedness, nausea or vomiting, or calf pain. No adverse overnight events. Pain has been controlled on medications. Patient overall is doing well this morning. She has no significant complaints. Patient does have restrictions with physical therapy with no bending greater than 90 degrees flexion. Patient also has a listed medication in the hospital that we do not have listed on our medications at [facility]. She states she does estradiol once weekly. She states she is able to stop that medication for 2 weeks. Objective Vitals and Measurements T: 36.7 C (Oral) TMIN: 36.4 C (Oral) TMAX: 37.0 C (Oral) HR: 59(Apical) RR: 16 BP: 117/69 SpO2: 97% HT: 160 cm WT: 104.5 kg BMI: 40.82 Intake and Output 7AM Yesterday to 7AM Today Intake and Output (Last 24 hours) Intake Oral Intake 400.00 Administration Information 901.16 Supplement Intake 200.00 Output Intra-Op EBL 150.00 Urine Count 4.00 Total Summary Total Intake 1501.16 Total Output 150.00 Fluid Balance 1351.16 Physical Exam Vital signs stable, afebrile. Patient does have underlying sleep apnea and did not bring her CPAP. She is doing well postoperatively. SCDs and TAYA hose are in place bilaterally Patient is able to plantarflex and dorsiflex actively Sensation is intact to saphenous, sural, superficial and deep peroneal, and tibial distribution Dressing is clean dry and intact Negative signs and symptoms of DVT, negative Homans bilaterally Weight Dosing Weight: 104.5 kg (12/31/22) Dosing Weight: 104.5 kg (12/31/22) Medications Medications (26) Active Scheduled: (14) acetaminophen 500 mg Tablet 1,000 mg 2 tab(s), Oral, q6hr aspirin 81 mg EC 81 mg 1 tab(s), Oral, BIDM bisacodyl 5 mg EC tablet 10 mg 2 tab(s), Oral, Once dexamethasone 10 mg/mL (1mL) SDV 10 mg 1 mL, IV Push, AsDirected docusate sodium 100 mg Capsule 100 mg 1 cap(s), Oral, BID docusate-senna (Senokot S) 50 mg-8.6 mg Tablet 2 tab(s), Oral, BID doxycycline hyclate 100 mg Capsule 100 mg 1 cap(s), Oral, q12h famotidine 20 mg tablet 20 mg 1 tab(s), Oral, qDay hydrochlorothiazide 12.5 mg tablet 12.5 mg 1 tab(s), Oral, qDay lisinopril 20 mg tablet 20 mg 1 tab(s), Oral, qDay magnesium hydroxide 8% Suspension 30 mL UD 30 mL, Oral, Daily meloxicam 7.5 mg tablet 7.5 mg 1 tab(s), Oral, BIDM multivitamin (Myadec) with minerals Therapeutic Multiple Vitamins with Minerals Tablet 1 tab(s), Oral, qDayM ondansetron 2 mg/ 1 mL 2 mL INJ 4 mg 2 mL, IV Push, q8h Continuous: (1) Lactated Ringers 1,000 mL 1,000 mL, Intravenous, 100 mL/hr PRN: (11) acetaminophen 325 mg Tablet 650 mg 2 tab(s), Oral, q4h calcium carbonate 500 mg Chewable 500 mg 1 tab(s), Chewed, TID diphenhydramine 25 mg tablet 25 mg 1 tab(s), Oral, q6h diphenhyDRAMINE 50 mg/mL (1 mL) INJ 25 mg 0.5 mL, IV Push, q6h ketorolac 30 mg/mL (1 mL) vial 15 mg 0.5 mL, IV Push, q6h morphine 2 mg/mL 1 mL syringe 2 mg 1 mL, IV Push, q1h ondansetron 2 mg/ 1 mL 2 mL INJ 4 mg 2 mL, IV Push, q8h oxycodone 5 mg tablet (immediate release) 5 mg 1 tab(s), Oral, q4h oxycodone 5 mg tablet (immediate release) 10 mg 2 tab(s), Oral, q4h prochlorperazine 10 mg/2 mL vial 5 mg 1 mL, IV Push, q6h sodium biphosphate-sodium phosphate 19 gm-7 gm Enema 133 mL, Rectal, qDay Lab Results 01/01 05:27 WBC: 13.5 H Hgb: 11.0 L Hct: 33.9 L Platelet: 313 Neutrophil %: 83.5 H Glucose Level: 117 H Sodium Level: 137 Potassium Level: 3.7 BUN: 16 Creatinine Lvl (s): 0.93 EKG No qualifying data available. Assessment/Plan Hypertension Osteoarthritis 1. Status post right total knee arthroplasty postop day #1 2. Continue pain medications: Tylenol, meloxicam, oxycodone. Do not take any other nonsteroidal anti-inflammatories while on meloxicam/Mobic 3. DVT prophylaxis: Take 81 mg aspirin twice daily with food for 4 weeks postoperatively for DVT prophylaxis. Patient denies past history of DVT or pulmonary embolism. Patient does use estradiol vaginally once weekly. We did discuss stopping this medication or placing her on Xarelto and continuing this medication. She states she is able to stop this for 2 weeks. She will resume this after 2 weeks and continue with the aspirin 81 mg for DVT prophylaxis. 4. Physical therapy: Weightbearing as tolerated with walker. We are limiting for the first 2 weeks no flexion greater than 90 degrees. After 2 weeks she can begin increasing range of motion 15 degrees every 2 weeks for a goal of 120 degrees x 6 weeks. New physical therapy order will be placed on chart so that she can take with her to [facility]. 5. H & H: 11.0/33.9, asymptomatic. Postoperative anemia from surgery without intraoperative complications. At this time there is no need for treatment. 6. Reactive leukocytosis: Currently 13.5, afebrile. Patient did receive Decadron intraoperatively. No clinical signs of infection. 7. Continue antibiotics due to BMI greater than 40.0: Patient will continue with doxycycline for 2 weeks postoperatively while following cultures. I discussed with the patient potential side effects with the doxycycline including hypersensitivity to the sunlight and must take appropriate precautions. Also recommended probiotic while taking the antibiotic for 2 weeks postoperatively. Patient voiced understanding and agreement. 8. Encouraged incentive spirometry 9. Continue postoperative medical management per medicine 10. Disposition: Plan will be for discharge home today as long as patient remains medically stable, tolerates therapy, and pain is controlled. She does have outpatient physical therapy established. Patient would like her prescriptions E scribed to [facility] in [facility]. She will follow-up per postoperative instructions. She will contact her office upon discharge with any concerns or questions. PT order will be placed on chart for her to take to physical therapy so they are aware of the restrictions. I have reviewed the [place] Automated Rx Reporting System (OARRS) report for this patient for refill pattern and other prescriber involvement as part of the appropriate surveillance for the provision of acute and chronic controlled medications. The report was requested and reviewed on the date of this entry, and was considered in the prescribing process This dictation was created using voice recognition software. Phonetic and/or grammatical errors may exist. Sleep apnea Digitally Signed by DARIO WOODY PA-C on 01/01/2023 07:15 AM [facility] 12-31-2022 Note ORIGINAL EXAMINATION: TWO XRAY VIEWS OF THE RIGHT KNEE 12/31/2022 11:32 am COMPARISON: None. HISTORY: ORDERING SYSTEM PROVIDED HISTORY: Reason for Exam: Status Post Arthroplasty FINDINGS: A complete knee replacement is identified. The components appear well seated and intact. No acute fracture or dislocation is identified. Gas and fluid in the soft tissues could be postoperative. IMPRESSION: Surgical changes. Interpreted by: Yumiko Mishra MD Preliminary Report By: Yumiko Mishra MD Electronically signed By Yumiko Mishra MD Dictated Date: 12/31/2022 12:38:10 PM Prelim Date: 12/31/2022 12:39:10 PM Sign Date: 12/31/2022 12:39:10 PM Ordering Provider: SALVADOR SHIPLEY [facility] 12-31-2022 Anesthesiology Consult note Patient: RADHA IBRAHIM Age: 57 years Sex: Female : 1965 Associated Diagnoses: None Author: NABIL MONTES APRN-AWARD CLERK Preoperative Information Time of last food or liquid consumption: 12/30/2022 23:59:00 Anesthesia history Patient's history: negative. Family's history: negative. Review of Systems Ear/Nose/Mouth/Throat: Negative except as documented in history of present illness. Respiratory: Negative except as documented in history of present illness. Cardiovascular: Negative except as documented in history of present illness. Gastrointestinal: Negative except as documented in history of present illness. Genitourinary: Negative except as documented in history of present illness. Endocrine: Negative except as documented in history of present illness. Musculoskeletal: Negative except as documented in history of present illness. Integumentary: Negative except as documented in history of present illness. Neurologic: Negative except as documented in history of present illness. Health Status Allergies: Allergic Reactions (Selected) Severity Not Documented Bactrim- Rash. LamISIL- Rash., Allergies (2) ActiveReaction BactrimRash LamISILRash Current medications: (Selected) Inpatient Medications Ordered Betadine 10% topical solution: 17.5 mL, mL/hr, Topical (INT), PREOP pharm Decadron: 10 mg, 1 mL, IV Push, AsDirected LR 1,000 mL: 125 mL/hr, Intravenous, Stop: 12/31/22 23:59:00 EST Naropin 25 mg + Toradol 15 mg + EPINEPHrine 1 mg/mL injectable solution 0.3 mg + morphine 2.5 mg...: 25 mg, 5 mL, mL/hr, Other, PREOP pharm Naropin 25 mg + Toradol 15 mg + EPINEPHrine 1 mg/mL injectable solution 0.3 mg + morphine 2.5 mg...: 25 mg, 5 mL, mL/hr, Other, PREOP pharm ceFAZolin: 2 gram(s), 200 mL/hr, IV Piggyback, PREOP pharm tranexamic acid 1 g / 100 mL 0.7% NaCl PMX: 1 gram(s), 100 mL, 300 mL/hr, IV Piggyback, AsDirected tranexamic acid 1 g / 100 mL 0.7% NaCl PMX: 1 gram(s), 100 mL, 300 mL/hr, IV Piggyback, AsDirected Documented Medications Documented Multivitamin: 1 tab(s), Oral, Daily, 0 Refill(s) Vitamin B12: 0 Refill(s) Vitamin D3: 100 mcg, 1 tab(s), Oral, Daily, 90 tab(s), 0 Refill(s) estradiol 0.1 mg/g vaginal cream: 1 appl, Vaginal, qWeek, 0 Refill(s) hydrochlorothiazide-lisinopril 12.5 mg-20 mg oral tablet: 1 tab(s), Oral, BID, 90 tab(s), 0 Refill(s), Medications (8) Active Scheduled: (7) ceFAZolin 2 gram(s), IV Piggyback, PREOP pharm dexamethasone 10 mg/mL (1mL) SDV 10 mg 1 mL, IV Push, AsDirected povidone iodine topical 17.5 mL, Topical (INT), PREOP pharm ropivacaine 25 mg + ketorolac 15 mg + epinephrine 0.3 mg + morphine 2.5 mg 25 mg 5 mL, Other, PREOP pharm ropivacaine 25 mg + ketorolac 15 mg + epinephrine 0.3 mg + morphine 2.5 mg 25 mg 5 mL, Other, PREOP pharm tranexamic acid PMX 1 gram(s) 100 mL, IV Piggyback, AsDirected tranexamic acid PMX 1 gram(s) 100 mL, IV Piggyback, AsDirected Continuous: (1) Lactated Ringers 1,000 mL 1,000 mL, Intravenous, 125 mL/hr PRN: (0) Problem list: No problem items selected or recorded., Active Problems (3) Hypertension Osteoarthritis Sleep apnea Histories Past Medical History: No active or resolved past medical history items have been selected or recorded. Family History: Hypertension Mother Stroke Father Heart attack Father Procedure history: Hysterectomy ([id number]). ORIF - Open reduction of fracture of ankle with internal fixation ([id number]). Comments: 12/09/2022 8:02 CAT [facility] ORIF - Open reduction and internal fixation of fracture ([id number]). Comments: 12/09/2022 8:02 [facility] WRIST Rotator cuff repair ([id number]). Comments: 12/09/2022 8:02 CAT [facility] Social History Social & Psychosocial Habits Alcohol 12/31/2022 Use: Current Frequency: 1-2 times per month Substance Abuse 12/31/2022 Use: Never Tobacco 12/31/2022 Tobacco Use: Never (less than 100 in l Home/Environment 12/31/2022 Domestic Concerns None Lives In Single level home Spouse Name NENITA Marital Status of Patient if Patient Independent Adult: Nutrition/Health 12/31/2022 Type of diet: Regular Eating Difficulties None . Physical Examination Vital Signs 12/31/2022 8:25 EST Peripheral Pulse Rate 71 bpm Systolic Blood Pressure Non-Invasive 117 mmHg Diastolic Blood Pressure Non-Invasive 63 mmHg 12/31/2022 8:20 EST Peripheral Pulse Rate 65 bpm Systolic Blood Pressure Non-Invasive 117 mmHg Diastolic Blood Pressure Non-Invasive 58 mmHg LOW 12/31/2022 7:19 EST Temperature Temporal Artery 36.7 DegC Peripheral Pulse Rate 97 bpm Respiratory Rate 15 br/min Systolic Blood Pressure Non-Invasive 140 mmHg Diastolic Blood Pressure Non-Invasive 77 mmHg Vital Signs(last 24 hrs) Last Charted Resp Rate 15 br/min (DEC 31 07:19) DTA578 mmHg (DEC 31 08:25) DBP63 mmHg (DEC 31 08:25) BMI40.82 (DEC 31 07:24) Measurements from flowsheet : Measurements 12/31/2022 7:24 EST Body Mass Index 40.82 kg/m2 12/31/2022 7:19 EST Height 160 cm Admission Weight 104.5 kg [place] Body Weight 52.38 kg Admission Body Mass Index 40.82 m2 Pain assessment: Pain Assessment 12/31/2022 7:56 EST Primary Pain Intensity 4 12/31/2022 7:19 EST Primary Pain Location Knee Primary Pain Laterality Right Primary Pain Intensity 4 Pain Scale Type 0-10 Pain scale . General: Alert and oriented. Airway: Normal neck range of motion. Mallampati classification: II (soft palate, fauces, uvula visible). Head: Normocephalic. Dentition Evaluation: Intact, Own teeth. Neck: Full range of motion. Respiratory: Lungs are clear to auscultation. Cardiovascular: Normal rate. Heart Sounds: Normal. Gastrointestinal: Soft. Musculoskeletal Normal range of motion. Integumentary: Intact, Warm, Dry. Neurologic: Alert, Oriented. Review / Management Results review: No qualifying data available , Lab results 12/31/2022 8:30 EST SN - Preop - CTm Pt Ready for OR/Proced 12/31/2022 8:00 (Modified) 12/31/2022 8:30 EST Patient Information Note PATIENT TOLERATED PROCEDURE WELL. 12/31/2022 8:25 EST Peripheral Pulse Rate 71 bpm Systolic Blood Pressure Non-Invasive 117 mmHg Diastolic Blood Pressure Non-Invasive 63 mmHg Oxygen Saturation 98 % 12/31/2022 8:20 EST Peripheral Pulse Rate 65 bpm Systolic Blood Pressure Non-Invasive 117 mmHg Diastolic Blood Pressure Non-Invasive 58 mmHg LOW Oxygen Therapy Nasal cannula 0L-6L Oxygen Saturation 99 % Oxygen Flow Rate 3 12/31/2022 8:17 EST Time Out Procedure Verified Time Out Procedure Site Verified Yes Time Out Procedure Site Marked Yes Time Out Correct Patient Position Yes Bedside Procedure Nerve Block Provider #1 Bedside Time Out NABIL MONTES APRN-AWARD CLERK Provider #2 Bedside Time Out Agnieszka Montes RN Patient ID Band on and Verified Yes 12/31/2022 8:14 EST History & Physical Update On Chart Yes Anesthesia Consent Signed Yes 12/31/2022 8:00 EST citric acid-sodium citrate Not Done: Not Appropriate at this Time (Not Done) 12/31/2022 7:56 EST Primary Pain Intensity 4 celecoxib 400 mg mg famotidine 20 mg mg oxyCODONE 10 mg mg Lactated Ringers Injection 1,000 mL mL 12/31/2022 7:52 EST Hand Right 12/31/2022 20 gauge Peripheral IV Activity: Insert new site Peripheral IV Dressing Condition: Clean, Dry, Intact Peripheral IV Dressing Activity: Applied, Transparent dressing Peripheral IV Line Status/Patency: Continuous infusion Peripheral IV Line Care: Secured with tape Peripheral IV Site Condition: No complications Peripheral IV Equipment: Extension set, PRN Adaptor Peripheral IV Number of Attempts: 4 12/31/2022 7:45 EST Antiembolism Stocking On/Re-applied left thigh high 12/31/2022 7:41 EST SN - Preop - CTm Pt in SDS Room 12/31/2022 7:15 12/31/2022 7:41 EST Preop Nasal Swab Povidone-Iodine 12/31/2022 7:24 EST Designated Person #1 We May Share DOMINIQUE GUTIERRES [phone] Designated Person #1 Relationship Spouse Privacy Restrictions Requested None Body Mass Index 40.82 kg/m2 Status No, per patient Sensory Deficits None Diagnosed With Sleep Apnea Yes Advanced Directives Yes Advance Directive Type [place] Declaration (Living Will) Advance Directive Location Unable to obtain copy Infectious Disease Symptoms Patient states no symptoms Infectious Disease Recent Exposure No Alcohol and Drug Use No Employee of Institutional Living No Health Care Employee No History of Exposure to TB No History of Positive Chest X-Ray for TB No History of Positive TB Skin Test No Homeless No Known Immunosuppression No Recent Immigrant No Resident of Institutional Living No Bloody Sputum No Fatigue No Fever No Loss of Appetite No Night Sweats No Persistent Cough > 3 Weeks No Weight Loss No Pre-Op Patient Education NPO after midnight, No smoking after midnight, No makeup, No jewelry, Aware of surgery location, Pre-op education done, 1 bottle CHG wash with instructions given, No ordered medications, Anesthesia block education provided SN - Preprocedure Comments Spoke with patient, Verbalizes/Nonverbally indicates understanding Anesthesia Evaluation Date/Time 12/09/2022 8:40 Anesthesia Evaluation Performed By NABOR HEARN APRN-AWARD CLERK Anesthesia Evaluation Result Approved Individuals Taught Patient, Spouse Barriers to Learning None evident Teaching Method Explanation, Printed materials Preferred Spoken Language Jamaican Preferred Written Language Jamaican Total Joint Book Given Yes Pre Procedure/Surgery Education Appropriate expectations Procedure/Surgical Teaching Evaluation Verbalizes/Nonverbally indicates understanding Information Given by Patient Patient's Current Physicians Patient's Current Physicians Discharge To, Anticipated Home with family care Prev Test Positive/Diagnosis w/COVID-19 Yes Previous COVID-19 Positive Date 2021 Current Quarantine/Isolated any Illness No Any Contact with Sick Animals/Birds No Traveled Anywhere in Last 30 Days No Lost Weight Unintentionally Recently No Eat Poorly Due to Decreased Appetite No Total MST Score 0 No Personal Devices, Patient Valuables Glasses Anesthesia/Transfusions Prior anesthesia Admission Note-Nursing Same Day Patient History 12/31/2022 7:21 EST Allergies Yes Consent Form Signed Yes Patient Dressed In Hospital gown Pre-op Preparation Glasses removed CHG Preoperative Wash/Wipe Night before procedure, Day of procedure CHG Skin Prep Completed for Eligible Surgery History & Physical On Chart Yes Belongings At Bedside Pants, Shoes, Socks, T-shirt, Undergarments, Walker NPO Status Maintained, More than 8 hours Allergy Band on and Verified Yes Patient ID Band on and Verified Yes Implants Verified Yes Pacemaker/AICD Verified Yes Site Verified by Patient/Family Yes Blood Consent Signed Yes Last Fluid Intake 12/30/2022 22:30 Last Food Intake 12/30/2022 20:30 Last Void 12/31/2022 6:30 Patient Cleared for Surgery By JULIO C RITCHIE MD 12/31/2022 7:19 EST Height 160 cm Admission Weight 104.5 kg [place] Body Weight 52.38 kg Admission Body Mass Index 40.82 m2 Temperature Temporal Artery 36.7 DegC Peripheral Pulse Rate 97 bpm Respiratory Rate 15 br/min Systolic Blood Pressure Non-Invasive 140 mmHg Diastolic Blood Pressure Non-Invasive 77 mmHg Primary Pain Location Knee Primary Pain Laterality Right Primary Pain Intensity 4 Pain Scale Type 0-10 Pain scale Dorsalis Pedis Pulse, Left 2+ Normal Dorsalis Pedis Pulse, Right 2+ Normal Radial Pulse, Left 2+ Normal Radial Pulse, Right 2+ Normal Respirations Unlabored All Lobes Breath Sounds Clear Oxygen Therapy Room air Oxygen Saturation 95 % Abdomen Description Non-distended, Soft Bowel Sounds All Quadrants Present Urinary Elimination Voiding, no difficulties Skin Temperature Warm Skin Description [place], Dry Skin Integrity Intact Neurological Symptoms Patient denies Extremity Movement Equal Characteristics of Speech Clear Level of Consciousness Alert Strength All Extremities Strong Tone All Extremities Normal Sensation All Extremities Intact Affect/Behavior Appropriate, Calm, Cooperative Orientation Oriented x 4 Activity Status ADL Awake, Resting Standard Safety ID band on, Allergy Band on, Call device within reach, Bed in low position, Wheels locked, Upper/Half-Length side-rails up . Assessment and Plan [place] [employer] Anesthesiologists (ASA) physical status classification: Class III. Anesthetic Preoperative Plan Premedication: intravenous. Anesthetic technique: MAC, Regional, Spinal. Induction: intravenously. Maintenance airway: Mask. Regional: Spinal, Adductor Canal Block. Postoperative pain management: Per surgeon. Risks discussed: nausea, vomiting, headache, sore throat, dental injury, hypotension, allergic reaction, serious complications. Informed consent: signed by patient. Digitally Signed by NABIL MONTES CLEANING PORTER-AWARD CLERK on 12/31/2022 08:43 AM [facility] 12-09-2022 Note ORIGINAL EXAMINATION: CT OF THE RIGHT KNEE WITHOUT CONTRAST 12/09/2022 9:49 am TECHNIQUE: CT of the right hip, knee and ankle was performed without the administration of intravenous contrast. Multiplanar reformatted images are provided for review. Automated exposure control, iterative reconstruction, and/or weight based adjustment of the mA/kV was utilized to reduce the radiation dose to as low as reasonably achievable. COMPARISON: None. HISTORY ORDERING SYSTEM PROVIDED HISTORY: Reason for Exam: VALGUS DEFORMITY NOT ELSEWHERE CLASSIFIED FINDINGS: Bones: No evidence of acute fracture or dislocation involving the right hip, knee or ankle. No aggressive appearing osseous abnormality or periostitis. Soft Tissue: No significant soft tissue edema or fluid collections. Hip: The right femoral head is seated within the acetabulum. There is mild right hip joint space narrowing. Knee: There is moderate to severe tricompartmental osteoarthritis of the right knee manifested by joint space narrowing and marginal osteophyte formation. This is most pronounced in the patellofemoral compartment. There is lateral subluxation of the patella. No osseous erosions. There is evidence of a suprapatellar joint effusion. On the coronal images, there appears to be mild valgus deformity of the knee. Unfortunately, the femur and tibia are not included in the same field of view to accurately measure the degree of valgus angulation. Ankle: Previous distal fibular screw and plate fixation noted. The right ankle appears in anatomic alignment. IMPRESSION: Severe tricompartmental osteoarthritis of the right knee with patellofemoral subluxation and a joint effusion. No acute osseous abnormality of the right hip, knee or ankle. Interpreted by: Kennedy Bunch MD Preliminary Report By: Kennedy Bunch MD Electronically signed By Kennedy Bunch MD Dictated Date: 12/09/2022 10:03:18 AM Prelim Date: 12/09/2022 10:11:46 AM Sign Date: 12/09/2022 10:11:46 AM Ordering Provider: SALVADOR SHIPLEY [facility] 12-09-2022 Note Sinus rhythm Probable left atrial enlargement Abnormal R-wave progression, early transition Left ventricular hypertrophy Electronic Signature: ALL CORBIN MD 12/09/2022 16:50:17 [facility] 12-29-2019 History of Presen t illness Narrative Radiology Service Progress Note PATIENT NAME: Radha Naylor DATE OF SERVICE: December 29, 2019 TIME: 5:19 PM PATIENT IDENTITY VERIFICATION COMPLETED USING TWO (2) IDENTIFIERS: Name and Date of confirmed by patient verbally. FALL SCREENING: Has the patient had 2 falls in the last year or 1 fall with injury or currently using an Ambulatory Assistive Device (Walker, Cane, Wheelchair, Crutches, etc.)? No PATIENT GENDER DATA: Female. status: : No status: NO. PATIENT RELEVANT IMPLANT DATA REVIEWED: Not Applicable RADIOLOGY DEPARTMENT: General X-ray: Exam(s) Completed: Chest X-Ray PERIPHERAL IV DATA: Not applicable SIGNED BY: RT Dina December 29, 2019 5:19 PM documented in this encounter [facility] Evaluation + Plan note Future Appointments [facility] Evaluation note No assessment inform ation available [facility] Work Phone: Evaluation note Diagnosis Suspected COVID-19 virus infection [facility] N[facility] No data available for this section [facility] Hospital Discharge instructions No data available for this section [facility] Progress note No data available for this section [facility] Chief Complaint and Reason for Visit Chief Complaint TLH, BSO Chief Complaint SCREENING Advance Directives Advance Directive Response Recorded Date/ Time Living Will No January 17 10:44am Power of Slide Developer No January 17, 2021 10:44am Summary Purpose Family History No Family History Records Found Additional Source Comments Goals (unrecognized section and content) Goals may be documented in a n alternate sectionGoals may be documented in an alternate section No data available for this section No data available for this section No data available for this section Patient Care team informatio n (unrecognized section and content) Senior Consultant Relationship Specialty Start Date End Date Tre Kim DO PCP - General Family Medicine 03/01/13 INFORMATION SOURCE (unrecogn ized section and content) DATE CREATED AUTHOR 01/08/2023 [facility] ([place]) DATE CREATED AUTHOR AUTHOR'S ORGANIZ ATION 10/26/2023 [facility] Source Comments (unrecognize d section and content) In the event this informatio n is protected by the Federal Confidentiality of Alcohol and Drug Abuse Patient Records regulations: The Federal rules restrict any use of the information to criminally investigate or prosecute any alcohol or drug abuse patient.[facility] Reason for Visit (unrecogniz ed section and content) Specialty Diagnoses / Procedures Referred By Contac t Referred To Contact Internal Medicine / URGENT CARE CLINIC Diagnoses cough, sore throat, congestion Procedures URGENT CARE [facility] [address] [place] [address] Referral ID Status Reason Start Date Expiration Date Visits Re quested Visits Authorized [id number] Closed 12/29/2019 03/28/2020 99 99 FOR RECORDS PERTAINING TO PATIENTS WHO ARE OR HAVE BEEN ENROLLED IN A CHEMICAL DEPENDENCY/SUBSTANCEABUSE PROGRAM, SOME INFORMATION MAY BE OMITTED. This clinical summary was aggregated from multiple sources. Caution should be exercised in using it in the provision of clinical care. This summary normalizes information from multiple sources, and as a consequence, information in this document may materially change the coding, format and clinical context of patient data. In addition, data may be omitted in some cases. CLINICAL DECISIONS SHOULD BE BASED ON THE PRIMARY CLINICAL RECORDS. [facility] [employer] [facility]. provides no warranty or guarantee of the accuracy or completeness of information in this document.
== END | disposition home or self-care (01) ==
LOC: MFPLAB 11:21
PROVIDERS: PCP Family Medicine; Referring Provider Family Medicine; Visit Provider Family Medicine
DX: I10 Essential (primary) hypertension (principal); R73.01 Impaired fasting glucose; Z13.29 Encounter for screening for other suspected endocrine disorder
CPT/HCPCS: 36415; 80053; 80061; 84443

== ENCOUNTER → 2024-11-10 | Outpatient (CLI) | payer OTHER, SELFPAY ==
--- NOTE | 2024-11-10 08:03 | BI_ITS ---
EXAM: SCRN MAMM (CAD)W/AARON BILAT DATE: 11/10/2024 CLINICAL HISTORY: F, Age 59 y/o , SCREENING No family history. TECHNIQUE: Procedure Code: [id number] Modality: MG Procedure: SCRN MAMM (CAD)W/AARON BILAT COMPARISON: Prior exam(s) dated September 30, 2023.. FINDINGS: TISSUE DENSITY: There are scattered areas of fibroglandular density. Bilateral Breast Mammographic Findings: No significant masses, calcifications or other abnormalities are identified. No suspicious masses, areas of developing architectural distortion, or suspicious calcifications. There has been no significant interval change. BI/SCRN MAMM (CAD)W/AARON BILAT IMPRESSION: Stable bilateral screening mammogram. OVERALL FINAL ASSESSMENT BI-RADS 1: NEGATIVE. RECOMMENDATION: Routine annual follow-up in 1 Year A letter with findings and recommendations will be mailed to the patient. Reading Location: [place] [address]
== END | disposition home or self-care (01) ==
LOC: OPBI 08:01
PROVIDERS: PCP Family Medicine; Referring Provider Family Medicine; Visit Provider Family Medicine
DX: Z12.31 Encounter for screening mammogram for malignant neoplasm of breast (principal)
CPT/HCPCS: 77063; 77067

== ENCOUNTER 2025-01-17 06:05 | Day surgery (SDC) | payer OTHER, SELFPAY ==
--- NOTE | 2025-01-14 14:18 | PAT.ANESEVAL ---
Pre-Assessment Diagnosis/Proposed Procedure Planned Operative Procedure(s): COLONOSCOPY Anesthesia History Anesthesia History - electro mechanical technologist: Anesthesia History - electro mechanical technologist Hx Hospitalization No 01/14/25 09:09 Any Problems With Anesthesia No 01/14/25 09:09 Cholinesterase deficiency No 01/14/25 09:09 You/Your Family Experience No 01/14/25 09:09 fever (hyperthermia) with Relationship Recent Exposure to Contagious No 01/25/21 09:10 Disease Does patient have nerve No 01/14/25 09:09 stimulator Patient instructed to have device shut off --Does patient have Pacemaker or ICD? When Was Last Pacemaker Check QUESTION #4 FULL TEXT: You/Your Family Experience fever (hyperthermia) with Anesthesia Last Oral Intake Last Oral intake: Last Oral Intake NPO since Meds taken in AM with sips of water? Meds patient instructed to take am of surgery PONV PONV - electro mechanical technologist: PONV - electro mechanical technologist Female Yes 01/14/25 09:09 HX of Motion Sickness No 01/14/25 09:09 HX of N/V After Surgery No 01/14/25 09:09 Non-Smoker Yes 01/14/25 09:09 Duration of Surgery greater No 01/14/25 09:09 than 60 minutes Number of Risk Factors 2 01/14/25 09:09 PONV Score Moderate Risk 01/14/25 09:09 Height & Weight Height & Weight: Anesthesia: Height & Weight Height 5 ft 3 in 03/29/21 06:34 Respiratory Assessment Respiratory Assessment - electro mechanical technologist: Respiratory Tract Infection Hx - electro mechanical technologist Hx Respiratory Tract Infection No 01/14/25 09:09 STOP Sleep Apnea STOP Sleep Apnea - electro mechanical technologist: STOP Sleep Apnea - electro mechanical technologist Hx Hypertension Yes: PER PT, CONTROLLED ON 01/14/25 09:09 MEDS Hx Sleep Apnea Yes 01/14/25 09:09 CPAP No 01/14/25 09:09 BIPAP No 01/14/25 09:09 Do you snore loudly (louder than talking or can be heard Do you often feel tired/ fatigued/ sleepy during daytime? Has anyone observed you stop breathing during sleep? STOP Results Positive 01/14/25 09:09 QUESTION #5 FULL TEXT : Do you snore loudly (louder than talking or can be heard through closed doors)? 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 Specify any problems Hx of Preganancy in last 3 No 01/14/25 09:09 Months Nurse Filling Out Transfusion MGRIFFITH 01/14/25 09:09 & Questions: Date: 01/14/25 01/14/25 09:09 Time: 09:11 01/14/25 09:09 Patient unable to answer at this time (ie. confused, unrespo /Reproduction History /Reproductive History - electro mechanical technologist: /Reproductive Hx- electro mechanical technologist Hx Now No 01/14/25 09:09 Gestational Age (in weeks): EDC: Hx Hx Para Hx Section SAB No 01/14/25 09:09 Does the father of the baby or his family experience fever w Father of the baby Malignant Hypertension history comment [facility] Medical History (Updated 01/14/25 @ 09:16 by Alanna Parr) Sleep apnea Leg cramps BERTA (obstructive sleep apnea) IFG (impaired fasting glucose) COVID Post-menopausal Wears glasses Alcohol use Arthritis Non-smoker Hypertension Home Medications ?Medication ?Instructions ?Recorded ?Last Taken ?Type multivitamin with folic acid 400 1 tab PO DAILY 04/30/16 Unknown History mcg tablet (Thera) estradiol 0.01% (0.1 mg/gram) 1 appful vaginal TAYLOR 08/11/20 Unknown History vaginal cream lisinopril 20 1 tab PO BID 08/11/20 Unknown History mg-hydrochlorothiazide 12.5 mg tablet cholecalciferol (vitamin D3) 25 25 mcg PO DAILY 03/22/21 Unknown History mcg (1,000 unit) chewable tablet (Vitamin D3) THC GUMMY 1 gummy PO QHS PRN PRN insomnia 01/14/25 Unknown History Allergy/AdvReac Type Severity Reaction Status Date / Time sulfamethoxazole (From Allergy Rash Verified 01/14/25 09:06 Bactrim) terbinafine (From Lamisil) Allergy Rash Verified 01/14/25 09:06 trimethoprim (From Bactrim) Allergy Rash Verified 01/14/25 09:06 Surgical History History of hysteroscopy Hx of colonoscopy Hx of repair of right rotator cuff Hx of right knee surgery History of open reduction and internal fixation (ORIF) procedure Social History Smoking Status: Never smoker Audit: Pertinent Findings Pertinent Findings EKG Perinent findings: 03/23/2021. Normal sinus rhythm 65 bpm. Normal EKG. Recommendation Anesthesia Recommendation Anesthesia recommendation: OPTIMIZED for anesthesia
[2025-01-17] VITALS (8 sets, daily range): BP systolic 112–153; BP diastolic 69–99; PULSE 54–81; RESP 16–18; TEMP 36.8–37.2; O2SAT 99–100; BMI 39.7
--- OUTSIDE RECORDS SUMMARY | 2025-01-17 06:09 | XMS RPT_ITS | CCD ---
Author Organization [facility] CliniSyid Care Team Providers Care Automotive Manager Name Role Phone CHAU COATS, DR BUNCH Primary Care Physician QUINTEN COATS, DR SALVADOR Vaca Attending Amy Casas MD, DR BUNCH Primary Care Eleanor SHIPLEY MD, DR SALVADOR Vaca Attending Amy Casas MD, DR BUNCH Primary Care Eleanor RITCHIE MD, DR BUNCH Primary Care Eleanor SHIPLEY MD, DR SALVADOR Vaca Admitting Unavailab le KAPPER JOY OPERATOR HELPER-CONTACT CENTER DIRECTOR, RICHARD Castillo Consulting Unavailhyacinth SHIPLEY MD, DR SALVADOR Vaca Referring Unavailab le KAPPER JOY OPERATOR HELPER-CONTACT CENTER DIRECTOR, RICHARD Castillo Attending Unavaila Tre Knapp DO Primary Care Provide r Chau COATS, Dr. Bunch Primary Care Provider Chau COATS, Dr. Bunch Attending Provider [phone] Chau COATS, Dr. Bunch Referring Provider [phone] Chau COATS, Dr. Bunch Primary Care Physicia n Chau COATS, Dr. Bunch Attending Physician Vida Moraes Attending Physician [phone] Julio C Ritchie Attending Unavailable Julio C Ritchie Referring Unavailable Julio C Ritchie Primary Care Unavailable Julio C Ritchie Attending Unavailable Julio C Ritchie Referring Unavailable Julio C Ritchie Primary Care Unavailable Julio C Ritchie Primary Care Unavailable Leslie, Stephen Attending Unavailable Julio C Ritchie Referring Unavailable Julio C Ritchie Primary Care Unavailable Vida Cohn Attending Unavailable Allergies Allergy Classification Reported Allergen(s) Allergy Type Date of Onset Reaction(s) Facility (6 sources) Sulfamethoxazole Drug Allergy 4 Rash [facility] (8 sources) terbinafine; Translations: [terbinafine] Drug Allergy 2 [facility] (5 sources) Trimethoprim Drug Allergy 2 [facility] (3 sources) Sulfamethoxazole / Trimethoprim; Translations: [sulfamethoxazole-tr imethoprim] Drug Allergy [facility] (1 source) Sulfamethoxazole Drug Allergy 5 [facility] (1 source) terbinafine Drug Allergy 5 [facility] (1 source) Trimethoprim Drug Allergy 5 [facility] Medications Current Medications Medication Drug Class(es) [...] prophylaxis., # 60 tab(s), 0 Refill(s), Pharmacy: [facility]/pharmacy #[id number], 160, cm, 12/31/22 13:06:00 EST, Height, kg, 12/31/22 13:06:00 EST, Dosing Weight Start Date: 01/01/23 Stop Date: 01/31/23 Status: Ordered cholecalciferol 0.025 mg chewable tablet (5 sources) Vitamin D Start: 2 take 1 tablet by mouth once daily docusate sodium 50 mg / sennosides, mcfp 8.6 mg oral tablet (1 source) Start: 3 End: 3 take 1 tablet by mouth twice daily Senokot S 50 mg-8.6 mg oral tablet Dose = 2 tab(s), Oral, BID, Take until first bowel movement, then as needed, X 3 day(s), # 12 tab(s), 0 Refill(s), Pharmacy: [facility]/pharmacy #[id number], 160, cm, 12/31/22 13:06:00 EST, [...] 0 Refill(s), 01/15/23 7:20:00 AM EST, Pharmacy: [facility]/pharmacy #[id number], 160, cm, 12/31/22 13:06:00 EST, Height, 104.5, kg, 12/31/22 13:06:00 EST, Dosing Weight Start Date: 01/01/23 Stop Date: 01/15/23 Status: Ordered famotidine 20 mg oral tablet (1 source) Histamine-2 Receptor Antagonist Start: 3 Pepcid 20 mg oral tablet Dose : 20 mg = 1 tab(s), Oral, qDay, # 30 tab(s), 0 Refill(s), Pharmacy: [facility]/pharmacy #[id number], 160, cm, 12/31/22 13:06:00 EST, Height, kg, 12/31/22 13:06:00 EST, Dosing Weight Start Date: 01/01/23 Status: Ordered hydroCHLOROthiazide 12.5 mg / lisinopril 20 mg oral tablet (9 sources) Thiazide Diuretic, Angiotensin Converting Enzyme Inhibitor Start: 1 Start: 08-11-2020 take 1 tablet by damien th twice daily Lisinopril-Hydrochlorothiazide Active 1 TABLET PO TWICE A DAY August 11, 2020 1:18pm Start: 08-13-2019 take 1 tablet by damien th once lisinopril-hydrochlorothiazide (PRINZIDE,ZESTORETIC) 20-12.5 mg per tablet Take 1 tablet by mouth. 08/13/2019 Active Magnesium (5 sources) Start: 03-22-2021 take 250 mg by mouth once daily Magnesium Active 250 MG PO DAILY March 22, 2021 1:48pm Start: 03-22-2021 End: 11-19-2024 take 1 tablet by mouth once daily Magnesium 250 mg Tablet Discontinued 250 mg PO DAILY March 22, 2021 1:00am November 19, 2024 7:34am Start: 03-22-2021 take 1 tablet by damien th once daily Magnesium 250 mg Tablet Active 250 mg PO DAILY March 22, 2021 1:00am Start: 03-22-2021 take 250 mg by mouth [...] meloxicam/Mobic, # 60 tab(s), 0 Refill(s), Pharmacy: [facility]/pharmacy #[id number], 160, cm, 12/31/22 13:06:00 EST, Height, kg, 12/31/22 13:06:00 EST, Dosing Weight Start Date: 01/01/23 Stop Date: 01/31/23 Status: Ordered Multivitamin preparation (3 sources) Start: 12-09-2022 take 1 tablet by mouth once daily Multivitamin Dose = 1 tab(s), Oral, Daily, 0 Refill(s) Start Date: 12/09/22 Status: Ordered Multivitamin With Folic Acid (Thera) 1 TABLET tablet (5 sources) Start: 04-30-2016 take 1 tablet by mouth once daily Multivitamin With Folic Acid (Thera) 1 TABLET tablet Active 1 TABLET PO DAILY April 30, 2016 10:46am Start: 04-30-2016 take 1 tablet by damien th once daily Start: 04-30-2016 take 1 tablet by damien th once daily Multivitamin With Folic Acid (Thera) 1 TABLET tablet Active 1 {tbl} PO DAILY April 30, 2016 1:00am Start: 04-30-2016 take 1 tablet by damien [...] with food.). 20 tablet 1 03/01/2013 Active oxyCODONE hydrochloride 5 mg oral tablet (6 sources) Opioid Agonist Start: 01-01-2023 End: 01-08-2023 take 1-2 tablets by mouth every four hours as needed for pain oxyCODONE 5 mg oral tablet ( IMMEDIATE release ) See Instructions, PRN as needed for pain, 1-2 tab(s) Oral q4h, # 42 tab(s), 0 Refill(s), 01/08/23 7:20:00 AM EST, Pharmacy: [facility]/pharmacy #[id number], Status post total right knee replacement, 160, cm, 12/31/22 13:06:00 EST, Height, 104.5, kg, 12/31/22 13:06:00 EST, Dosing Weight Start Date: 01/01/23 Stop Date: 01/08/23 Status: Ordered Start: 03-29-2021 End: 11-19-2024 take 1 tablet by mouth every six hours as needed for pain Oxycodone 5 mg tablet Discontinued 5 mg PO EVERY 6 HOURS as needed for pain (scale score 7-10) 24 5 0 March 29, 2021 November 19, 2024 7:34am Other acute postprocedural pain Other acute postprocedural pain vitamin B12 (1 source) Vitamin B12 Start: 12-31-2022 take 1 dose by mouth once daily Vitamin B12 Dose : 50 mcg =, Oral, qDay, 0 Refill(s) Start Date: 12/31/22 Status: Ordered Vitamin D3 (3 sources) Start: 12-09-2022 Vitamin D3 Dos e : 100 mcg = 1 tab(s), Oral, Daily, # 90 tab(s), 0 Refill(s) Start Date: 12/09/22 Status: Ordered Zinc (5 sources) Start: 03-22-2021 take 50 mg by mouth once daily Zinc Active 50 MG PO DAILY March 22, 2021 1:48pm Start: 03-22-2021 End: 11-19-2024 take 1 tablet by mouth once daily Zinc 50 mg Tablet Discontinued 50 mg PO DAILY March 22, 2021 1:00am November 19, 2024 7:34am Start: 03-22-2021 take 1 tablet by damien th once daily Zinc 50 mg Tablet Active 50 mg PO DAILY March 22, 2021 1:00am Start: 03-22-2021 take 50 mg by mouth once daily Zinc Active 50 MG PO DAILY March 22, 2021 1:00am Completed/Discontinued Medications Medication Drug Class(es) Dates Sig (Normalized) Sig (Original) acetaminophen 325 mg / oxyCODONE hydrochloride 5 mg oral tablet (5 sources) Opioid Agonist Start: 04-28-2016 End: 05-02-2016 Oxycodone-Acetamino phen 1 TABLET tablet Discontinued 1 - 2 {tbl} PO EVERY 4 HOURS NEEDED as needed for Pain April 28, 2016 1:00am May 02, 2016 8:34am Start: 04-28-2016 End: 05-02-2016 take 1 tablet by mouth every four hours as needed Oxycodone-Acetaminophen Discontinued 1 - 2 TABLET PO EVERY 4 HOURS NEEDED April 28, 2016 6:23pm May 02, 2016 8:34am estradiol 0.1 mg/ml vaginal cream (7 sources) Estrogen Start: 12-09-2022 estradiol 0.1 mg/g vaginal cream Dose = 1 appl, Vaginal, qWeek, 0 Refill(s) Start Date: 12/09/22 Status: Ordered Start: 08-11-2020 Start: 08-11-2020 Estradiol Acti ve 1 APPFUL VAGINAL TAYLOR August 11, 2020 1:18pm ondansetron 4 mg oral tablet (5 sources) Serotonin-3 Receptor Antagonist Start: 03-29-2021 End: 11-19-2024 take 1 tablet by mouth every six hours as needed for nausea and vomiting Ondansetron Hcl 4 mg tablet Discontinued 4 mg PO EVERY 6 HOURS as needed for nausea and vomiting 30 0 March 29, 2021 8:18am November 19, 2024 7:34am Problems Problem Classification Problem Date Documented Da te Episodic/Chronic Essential hypertension (2 sources) Essential hypertension; Translations: [Essential (primary) hypertension] Onset: 12-31-2022 Chronic Fracture of upper limb (5 sources) Fracture at wrist and/or hand level; Translations: [Fracture of unspecified carpal bone, right wrist, initial encounter for closed fracture] 04-29-2016 Episodic Immunizations and screening for infectious disease (1 source) Suspected disease caused by 2019-nCoV; Translations: [Suspected COVID-19 virus infection] 12-29-2019 Episodic Osteoarthritis (1 source) Osteoarthritis; Translations: [Unspecified osteoarthritis, unspecified site] Onset: 12-31-2022 Chronic Other connective tissue disease (1 source) Artificial knee joint present; Translations: [Presence of right artificial knee joint] Onset: 01-01-2023 Chronic Other gastrointestinal disorders (4 sources) Stool DNA-based colorectal cancer screening positive; Translations: [Other fecal abnormalities] 11-19-2024 Episodic Other gastrointestinal disorders (1 source) Other fecal abnormalities; Translations: [Other fecal abnormalities] Onset: 11-19-2024 Episodic Other injuries and conditions due to external causes (2 sources) Injury of knee; Translations: [Unspecified injury of right lower leg, initial encounter] Episodic Other injuries and conditions due to external causes (3 sources) Injury of right knee; Translations: [Unspecified injury of right lower leg, initial encounter] 04-29-2016 Episodic Other nervous system disorders (5 sources) Acute postoperative pain; Translations: [Other acute postprocedural pain] 03-29-2021 Episodic Other screening for suspected conditions (not mental disorders or infectious disease) (1 source) Encounter for screening mammogram for malignant neoplasm of breast; Translations: [Encounter for screening mammogram for malignant neoplasm of breast] Onset: 11-17-2024 Episodic Residual codes; unclassified (1 source) Sleep apnea; Translations: [Sleep apnea, unspecified] Onset: 12-31-2022 Chronic Results Test Name Value Interpretation Reference Range Facility Gastroenterology Visit Repor ton 11-19-2024 Gastroenterology Visit Report [facility] G[facility]enterology [address] [place] [place] [address] OFFICE VISIT Date of Service: 11/19/24 MR#: [id number] Acct: [id number] Name: RADHA IBRAHIM Rep #: [id number] : 1965 Provider: MATTHIAS Cramer Age/Sex: 59/F Location: [facility] Status: Signed Intake Vital Signs 03/29/21 06:34 Height 5 ft 3 in Intake Visit Reasons: + COLOGUARD Chief Complaint: Positive Cologuard Electronic Equipment Installer Required: No Accompanied by: Self Is patient in pain?: No Allergies sulfamethoxazole (From Bactrim) Allergy (Verified 11/19/24 07:39) Rash terbinafine (From Lamisil) Allergy (Verified 11/19/24 07:39) Rash trimethoprim (From Bactrim) Allergy (Verified 11/19/24 07:39) Rash Medications ???Medication ???Instructions ???Recorded ???Confirmed ???Type multivitamin with folic acid 400 1 tab PO DAILY 04/30/16 11/19/24 H istory mcg tablet (Thera) estradiol 0.01% (0.1 mg/gram) 1 appful vaginal TAYLOR 08/11/2011/04 History vaginal cream lisinopril 20 1 tab PO BID 08/11/20 11/04/24 His tory mg-hydrochlorothiazi de 12.5 mg tablet cholecalciferol (vitamin D3) 25 25 mcg PO DAILY 03/22/21 11/19/24 History mcg (1,000 unit) chewable tablet (Vitamin D3) PFSH Medical History BERTA (obstructive sleep apnea) IFG (impaired fasting glucose) COVID Post-menopausal Wears glasses Alcohol use Arthritis Low iron Migraine headache Non-smoker Hypertension Surgical History History of hysteroscopy Hx of colonoscopy Hx of repair of right rotator cuff Hx of right knee surgery History of open reduction and internal fixation (ORIF) procedure Social History Smoking Status: Never smoker HPI HPI Chief Complaint: Positive Cologuard Details: RADHA IBRAHIM, is a 59 F who presents to the office today for establishment. Patient referred from primary care provider after a positive Cologuard test. Patient took a Cologuard about 1 month ago. Patient denies any GI symptoms at this time. She has no constipation diarrhea or blood in her stool. She has a regular bowel movement 1-2 times per day. Last colonoscopy was 10 to 12 years ago with no abnormalities. She denies any family history of colon cancer. ROS Const Constitutional: No fatigue, fever(s) or weight change ENT ENT: No difficulty swallowing Gastro GI: No abdominal pain, belching, bloating, change in bowel habits, change in stool character, coffee ground emesis, constipation, cramping, diarrhea, heartburn, difficulty swallowing, feeling full early, excessive flatus, incontinent of stools, Vomiting blood/hematemesis, Blood in stool, loose stools, Black,tarry stools, nausea/dyspepsia, pain with swallowing, vomiting or other Musc Musculoskeletal: No joint pain Skin Skin: No yellowing of the eye or itchy eyes Psych Psychiatric: No anxiety and No depression Endo Endocrine: No fatigue or weight change Aller/Imm Allergy/Immunologic: No itchy eyes Sebas/Lymp Hematologic/Lymphati c: No easy bleeding or easy bruising Exam Const General: cooperative, healthy appearing and comfortable Orientation: alert HENMT Head: normal to inspection Eyes General: appearance normal, both eyes and all related structures Neck Neck: normal visual inspection Chest Chest palpation inspection: normal inspection of the chest Resp Effort Inspection: normal respiratory effort Cardio Rate: regular rate Rhythm: regular rhythm GI Inspection: normal to inspection Auscultation: normal bowel sounds Palpation: soft, no hepatosplenomegaly, not firm, no guarding and nontender Assessment and Plan Assessment and Plan (1) Positive colorectal cancer screening using Cologuard test: Status: Acute Plan: Radha is a 59-year-old female patient here today for evaluation after having a positive Cologuard test 1 month ago. Patient denies any GI symptoms at this point including constipation, diarrhea, or blood in her stool. Last colonoscopy was 10 to 12 years ago with no abnormalities. She denies family history of colon cancer. Patient was scheduled for colonoscopy today. - Colonoscopy - Follow-up as needed Note: Over 40 Females speech recognition cost engineer software was used to create portions of this document. Sound-alike and misspelled words, as well as other cost engineer errors may be contained in the documentation. Coding Level of Care Code Off vis,new,level 3 Diagnoses Positive colorectal cancer screening using Cologuard test R19.5 11/19/24 0750 Date Vida Robin Signature: Date (more content not included)... Normal [facility] Breast imaging reportOrdered By: Immanuel Evans on 11-10-2024 Study report [facility] Imaging Services [address] [place], [place] [address] SCRN MAMM (CAD)W/AARON BILAT MR#: [id number] Acct: [id number] Name: RADHA IBRAHIM Rep #: [id number] : 1965 F 59 From: Kit Evans MD PCP: Dr. Julio C Ritchie MD Status: [facility] Study:SCRN MAMM (CAD)W/AARON BILAT Date of Exa m: 11/10/24 Exam# [id number] Ordering Dr: Alison Ritchie MD EXAM: SCRN MAMM (CAD)W/AARON BILAT DATE: 11/10/2024 CLINICAL HISTORY: F, Age 59 y/o , SCREENING No family history. TECHNIQUE: Procedure Code: BISMWCADBTOM Modality: MG Procedure: SCRN MAMM (CAD)W/AARON BILAT COMPARISON: Prior exam(s) dated September 30, 2023.. FINDINGS: TISSUE DENSITY: There are scattered areas of fibroglandular density. Bilateral Breast Mammographic Findings: No significant masses, calcifications or other abnormalities are identified. No suspicious masses, areas of developing architectural distortion, or suspicious calcifications. There has been no significant interval change. BI/SCRN MAMM (CAD)W/AARON BILAT IMPRESSION: Stable bilateral screening mammogram. OVERALL FINAL ASSESSMENT BI-RADS 1: NEGATIVE. RECOMMENDATION: Routine annual follow-up in 1 Year A letter with findings and recommendations will be mailed to the patient. Reading Location: [facility] CC: Dr. Julio C Ritchie MD ~ Drill Press Operator Helper: Signed [facility] SCRN MAMM (CAD)W/AARON BILATo n 11-10-2024 SCRN MAMM (CAD)W/AARON BILAT [facility] Imaging Services [address] [place] [address] SCRN MAMM (CAD)W/AARON BILAT MR#: [id number] Acct: [id number] Name: RADHA IBRAHIM Rep #: [id number] : 1965 F 59 From: Immanuel nelson MD PCP: Dr. Julio C Ritchie MD Status: [facility] Study: SCRN MAMM (CAD)W/AARON BILAT Date of Exam: 10/25 09/17 Exam# [id number] Ordering Dr: Julio C Ritchie EXAM: SCRN MAMM (CAD)W/AARON BILAT DATE: 11/10/2024 CLINICAL HISTORY: F, Age 59 y/o , SCREENING No family history. TECHNIQUE: Procedure Code: BISMWCADBTOM Modality: MG Procedure: SCRN MAMM (CAD)W/AARON BILAT COMPARISON: Prior exam(s) dated September 30, 2023.. FINDINGS: TISSUE DENSITY: There are scattered areas of fibroglandular density. Bilateral Breast Mammographic Findings: No significant masses, calcifications or other abnormalities are identified. No suspicious masses, areas of developing architectural distortion, or suspicious calcifications. There has been no significant interval change. BI/SCRN MAMM (CAD)W/AARON BILAT IMPRESSION: Stable bilateral screening mammogram. OVERALL FINAL ASSESSMENT BI-RADS 1: NEGATIVE. RECOMMENDATION: Routine annual follow-up in 1 Year A letter with findings and recommendations will be mailed to the patient. Reading Location: [facility] CC: Dr. Julio C Ritchie MD Drill Press Operator Helper: Signed Normal [facility] Anion gap in Serum or Plasma Ordered By: Julio C Ritchie on 10-13-2024 Anion gap [Moles/Vol] 16 mmol/L High 5- [facility] BUN/creatinine ratioOrdered By: Julio C Ritchie on 10-13-2024 Urea nitrogen/Creatinine [Mass ratio] 13.6 mg/mg 12-13 [facility] Bilirubin, totalOrdered By: Julio C Ritchie on 10-13-2024 Bilirubin [Mass/Vol] 0.60 mg/dL 0.00-1.30 [facility] Calculated very low density lipoprotein (VLDL) cholesterol measurementOrdered By: Julio C Ritchie on 10-13-2024 Calculated very low density lipoprotein (VLDL) cholesterol measurement 25 mg/dL [facility] Carbon dioxide, total [Moles /volume] in Central venous bloodOrdered By: Julio C Ritchie on 10-13-2024 CO2 [Moles/Vol] 23.3 mmol/L 21.0-32.0 [facility] Chloride assayOrdered By: Lotus Ritchie on 10-13-2024 Chloride [Moles/Vol] 96 mmol/L Low 98-108 [facility] Comprehensive Metabolic Prof ilon 10-13-2024 Albumin [Mass/Vol] 4.1 g/dL Normal 3.4-4.8 [facility] Comment on above: Order Comment: Order Date: 03/16/24 Order Info: [id number] - CMP Order Info: [id number] - LIPID Order Info: [id number] - TSH Performed By: #### L 500.4050, L500.4100, L501.9520 #### [facility] Laboratory [address] [place], [place], [id number] Albumin/Globulin [Mass ratio] 1.0 {ratio} Normal 0.9-2.4 [facility] Comment on above: Order Comment: Order Date: 03/16/24 Order Info: [id number] - CMP Order Info: [id number] - LIPID Order Info: [id number] - TSH Performed By: #### L 500.4050, L500.4100, L501.9520 #### [facility] [address] [place], [address] ALK PHOS 78 U/L Normal 35-104 [facility] Comment on above: Order Comment: Order Date: 03/16/24 Order Info: [id number] - CMP Order Info: [id number] - LIPID Order Info: [id number] - TSH Performed By: #### L 500.4050, L500.4100, L501.9520 #### [facility] [address] [place], [address] ALT [Catalytic activity/Vol] 13 U/L Normal <=34 [facility] Comment on above: Order Comment: Order Date: 03/16/24 Order Info: [id number] - CMP Order Info: - LIPID Order Info: [id number] - TSH Performed By: #### L 500.4050, L500.4100, L501.9520 #### [facility] [address] [place], [address] AST [Catalytic activity/Vol] 24 U/L Normal <=31 [facility] Comment on above: Order Comment: Order Date: 03/16/24 Order Info: [id number] - CMP Order Info: - LIPID Order Info: [id number] - TSH Performed By: #### L 500.4050, L500.4100, L501.9520 #### [facility] [address] [place], [address] Bilirubin [Mass/Vol] 0.60 mg/dL Normal 0.00-1.30 [facility] Comment on above: Order Comment: Order Date: 03/16/24 Order Info: 1 - CMP Order Info: [id number] - LIPID Order Info: [id number] - TSH Performed By: #### L 500.4050, L500.4100, L501.9520 #### [facility] [address] [facility] [place], [address] BUN/CRE 13.6 RATIO Normal 10-20 [facility] Comment on above: Order Comment: Order Date: 03/16/24 Order Info: [id number] - CMP Order Info: [id number] - LIPID Order Info: 3 - TSH Performed By: #### L 500.4050, L500.4100, L501.9520 #### [facility] [address] [place], [address] Calcium [Mass/Vol] 9.6 mg/dL Normal 7.6-11.0 [facility] Comment on above: Order Comment: Order Date: 03/16/24 Order Info: [id number] - CMP Order Info: - LIPID Order Info: 3 - TSH Performed By: #### L 500.4050, L500.4100, L501.9520 #### [facility] [address] [place], [address] Chloride [Moles/Vol] 96 mmol/L Low 98-108 [facility] Comment on above: Order Comment: Order Date: 03/16/24 Order Info: [id number] - CMP Order Info: - LIPID Order Info: [id number] - TSH Performed By: #### L 500.4050, L500.4100, [id number] #### [facility] [address] [place], [address] CO2 [Moles/Vol] 23.3 mmol/L Normal 21.0-32.0 [facility] Comment on above: Order Comment: Order Date: 03/16/24 Order Info: [id number] - CMP Order Info: - LIPID Order Info: 3 - TSH Performed By: #### L 500.4050, L500.4100, [id number] #### [facility] [address] [place], [address] Creatinine [Mass/Vol] 0.92 mg/dL Normal 0.70-1.20 [facility] Comment on above: Order Comment: Order Date: 03/16/24 Order Info: [id number] - CMP Order Info: - LIPID Order Info: [id number] - TSH Performed By: #### L 500.4050, L500.4100, [id number] #### [facility] [address] [place], [address] GAP 16 High 5-15 [facility] Comment on above: Order Comment: Order Date: 03/16/24 Order Info: [id number] - CMP Order Info: - LIPID Order Info: [id number] - TSH Performed By: #### L 500.4050, L500.4100, L501.9520 #### [facility] [address] [place], [address] GFR/1.73 sq M.predicted among non-blacks MDRD (S/P/Bld) [Vol rate/Area] 71 mL/min/{1.73_m2} Normal >60 [facility] Comment on above: Order Comment: Order Date: 03/16/24 Order Info: [id number] - CMP Order Info: - LIPID Order Info: [id number] - TSH Result Comment: mL/m in/1.73m2 CKD-EPI Creatinine Equation (2020) Performed By: #### L 500.4050, L500.4100, L501.9520 #### [facility] [address] [place], [address] Globulin (S) [Mass/Vol] 3.9 g/dL Normal 2.2-4.2 [facility] [facility] Comment on above: Order Comment: Order Date: 03/16/24 Order Info: [id number] - CMP Order Info: [id number] - LIPID Order Info: [id number] - TSH Performed By: #### L 500.4050, L500.4100, L501.9520 #### [facility] [address] [place], [address] Glucose [Mass/Vol] 91 mg/dL Normal 70-99 [facility] Comment on above: Order Comment: Order Date: 03/16/24 Order Info: [id number] - CMP Order Info: [id number] - LIPID Order Info: 3 - TSH Performed By: #### L 500.4050, L500.4100, [id number] #### [facility] [address] [place], [address] Potassium [Moles/Vol] 3.4 mmol/L Normal 3.3-5.1 [facility] Comment on above: Order Comment: Order Date: 03/16/24 Order Info: [id number] - CMP Order Info: - LIPID Order Info: 3 - TSH Performed By: #### L 500.4050, L500.4100, L501.9520 #### [facility] [address] [place], [address] Sodium [Moles/Vol] 135 mmol/L Normal 133-145 [facility] Comment on above: Order Comment: Order Date: 03/16/24 Order Info: [id number] - CMP Order Info: - LIPID Order Info: 3 - TSH Performed By: #### L 500.4050, L500.4100, [id number] #### [facility] [address] [place], [address] T PROT 8.0 g/dL Normal 5.9-8.4 [facility] Comment on above: Order Comment: Order Date: 03/16/24 Order Info: [id number] - CMP Order Info: - LIPID Order Info: 3 - TSH Performed By: #### L 500.4050, L500.4100, [id number] #### [facility] [address] [place], [address] Urea nitrogen [Mass/Vol] 13 mg/dL Normal 4-19 [facility] Comment on above: Order Comment: Order Date: 03/16/24 Order Info: [id number] - CMP Order Info: [id number] - LIPID Order Info: [id number] - TSH Performed By: #### L 500.4050, L500.4100, [id number] #### [facility] [address] [place], [place], [id number] Glomerular filtration rate ( GFR) estimation/1.73 sq m using serum, plasma, or whole bOrdered By: Julio C Ritchie on 10-13-2024 GFR/1.73 sq M.predicted among non-blacks MDRD (S/P/Bld) [Vol rate/Area] 71 mL/min/{1.73_m2} >60 [facility] Comment on above: mL/min/1.73m2 CKD-EP I Creatinine Equation (2020) LDL calc ser/plasOrdered By: Julio C Ritchie on 10-13-2024 Cholesterol in LDL [Mass/Vol] 120 mg/dL [facility] Comment on above: Vclezetgts=623-261 m g/dL & Higher Qnkl=039 mg/dL or greaterFriedwald Equation for LDL-C Laboratory - Chemistry and C hemistry - challengeOrdered By: Julio C Ritchie on 10-13-2024 AST [Catalytic activity/Vol] 24 U/L <32 [facility] Lipid Profileon 10-13-2024 CHOL:HDL 3.30 Normal [facility] Comment on above: Order Comment: Order Date: 03/16/24 Order Info: [id number] - CMP Order Info: [id number] - LIPID Order Info: [id number] - TSH Performed By: #### L 500.4050, L500.4100, L501.9520 #### [facility] [address] [place], [place], [id number] Cholesterol [Mass/Vol] 208 mg/dL High <=200 [facility] Comment on above: Order Comment: Order Date: 03/16/24 Order Info: [id number] - CMP Order Info: [id number] - LIPID Order Info: 3 - TSH Result Comment: Chol esterol level, Desirable <200 mg/dL Borderline high cholesterol 200-239 mg/dL High cholesterol >=240 mg/dL Recommendations of the NCEP Adult Treatment Panel for the following risk-cutoff thresholds for the [place] population. Performed By: #### L 500.4050, L500.4100, L501.9520 #### [facility] [address] [place], [address] Cholesterol in HDL [Mass/Vol] 63 mg/dL Normal [facility] Comment on above: Order Comment: Order Date: 03/16/24 Order Info: 07- - CMP Order Info: - LIPID Order Info: [id number] - TSH Result Comment: Marcela onal Cholesterol Education Program (NCEP) guidelines: <40 mg/dL: Low HDL-cholesterol (major risk factor for CHD) >= 60 mg/dL: High HDL-cholesterol (negative risk factor for CHD) HDL-cholesterol is affected by a number of factors, e.g. smoking, exercise, hormones, sex and age. Performed By: #### L 500.4050, L500.4100, L501.9520 #### [facility] [address] [place], [address] Cholesterol in LDL [Mass/Vol] 120 mg/dL Normal [facility] Comment on above: Order Comment: Order Date: 03/16/24 Order Info: 07 - CMP Order Info: - LIPID Order Info: 3 - TSH Result Comment: Bord baplzx=397-820 mg/dL Higher Maeb=516 mg/dL or greater Friedwald Equation for LDL-C Performed By: #### L 500.4050, L500.4100, L501.9520 #### [facility] [address] [place], [address] Cholesterol in VLDL [Mass/Vol] 25 mg/dL Normal 5-40 [facility] Comment on above: Order Comment: Order Date: 03/16/24 Order Info: [id number] - CMP Order Info: [id number] - LIPID Order Info: [id number] - TSH Performed By: #### L 500.4050, L500.4100, [id number] #### [facility] [address] [place], [address] Triglyceride [Mass/Vol] 125 mg/dL Normal [facility] Comment on above: Order Comment: Order Date: 03/16/24 Order Info: [id number] - CMP Order Info: [id number] - LIPID Order Info: [id number] - TSH Result Comment: The drugs N-Acetylcysteine and Metamizole may falsely depress this assay. Normal range: <150 mg/dL Borderline High: 150-199 mg/dL High: 200-499 mg/dL Very High: >500 mg/dL Performed By: #### L 500.4050, L500.4100, L501.9520 #### [facility] [address] [place], [address] Potassium measurement (mass/ volume)Ordered By: Julio C Ritchie on 10-13-2024 Potassium (Unsp spec) [Mass/Vol] 3.4 mmol/L 3.3-5.1 [facility] Screening total cholesterol/ high density lipoprotein (HDL) cholesterol ratioOrdered By: Julio C Ritchie on 10-13-2024 Cholesterol.total/Chol esterol in HDL [Mass ratio] 3.30 {ratio} [facility] Serum creatinine measurement (mass/volume)Ordered By: Julio C Ritchie on 10-13-2024 Creatinine [Mass/Vol] 0.92 mg/dL 0.70-1.20 [facility] Serum globulin measurementOr dered By: Julio C Ritchie on 10-13-2024 Globulin (S) [Mass/Vol] 3.9 g/dL 2.2-4.2 [facility] Serum glucose measurement (m ass/volume)Ordered By: Julio C Ritchie on 10-13-2024 Glucose [Mass/Vol] 91 mg/dL 70-99 [facility] Serum or plasma alanine ha otransferase (ALT) measurementOrdered By: Julio C Ritchie on 10-13-2024 ALT [Catalytic activity/Vol] 13 U/L <35 [facility] Serum or plasma albumin quoc urement (mass/volume)Ordered By: Julio C Ritchie on 10-13-2024 Albumin [Mass/Vol] 4.1 g/dL 3.4-4.8 [facility] Serum or plasma albumin/glob ulin mass ratioOrdered By: Julio C Ritchie on 10-13-2024 Albumin/Globulin [Mass ratio] 1.0 {ratio} 0.9-2.4 [facility] Serum or plasma alkaline alex sphatase measurementOrdered By: Julio C Ritchie on 10-13-2024 ALP [Catalytic activity/Vol] 78 U/L 35-104 [facility] Serum or plasma calcium quoc urement (mass/volume)Ordered By: Julio C Ritchie on 10-13-2024 Calcium [Mass/Vol] 9.6 mg/dL 7.6-11.0 [facility] Serum or plasma cholesterol in HDL measurement (mass/volume)Ordered By: Julio C Ritchie on 10-13-2024 Cholesterol in HDL [Mass/Vol] 63 mg/dL >40 [facility] Comment on above: National Cholesterol Education Program (NCEP) guidelines:<40 mg/dL: Low HDL-cholesterol (major risk factor for CHD)>= 60 mg/dL: High HDL-cholesterol (negative risk factor for CHD)HDL-cholesterol is affected by a number of factors, e.g. smoking, exercise, hormones, sex and age. Serum or plasma cholesterol measurement (mass/volume)Ordered By: Julio C Ritchie on 10-13-2024 Cholesterol [Mass/Vol] 208 mg/dL High <201 [facility] Comment on above: Cholesterol level, D esirable <200 mg/dLBorderline high cholesterol 200-239 mg/dLHigh cholesterol >=240 mg/dLRecommendations of the NCEP Adult Treatment Panel for the following risk-cutoff thresholds for the [place] population. Serum or plasma urea nitroge n measurement (mass/volume)Ordered By: Julio C Ritchie on 10-13-2024 Urea nitrogen [Mass/Vol] 13 mg/dL 4-19 [facility] Sodium levelOrdered By: Ras Ritchie on 10-13-2024 Sodium [Moles/Vol] 135 mmol/L 133-145 [facility] TSH DL <= 0.005 mIU/L QnOrde red By: Julio C Ritchie on 10-13-2024 TSH Qn 1.440 uIU/mL 0.300-4.200 [facility] Thyroid Stim Hormone (TSH)on 10-13-2024 TSH 1.440 uIU/mL Normal 0.300-4.200 [facility] Comment on above: Order Comment: Order Date: 03/16/24 Order Info: [id number] - CMP Order Info: [id number] - LIPID Order Info: [id number] - TSH Performed By: #### L 500.4050, L500.4100, L501.9520 #### [facility] [address] [place], [place], [id number] Total proteinOrdered By: Tito Ritchie on 10-13-2024 Protein [Mass/Vol] 8.0 g/dL 5.9-8.4 [facility] Triglycerides measurementOrd ered By: Julio C Ritchie on 10-13-2024 Triglyceride [Mass/Vol] 125 mg/dL <199 [facility] Comment on above: The drugs N-Acetylcy steine and Metamizole may falsely depress this assay. Normal range: <150 mg/dLBorderline High: 150-199 mg/dLHigh: 200-499 mg/dLVery High: >500 mg/dL .Auto Diffon 01-01-2023 Basophil, Absolute 0.1 10 3/mcL Normal 0.0-0.2 [facility] ([place]) Comment on above: Performed By: #### A BAUTISTA, ABOG, ANSG, ALB, BMP, ADIFF, CBC, GFR #### [address] [place], [place] [address] Basophils/100 WBC (Bld) 0.7 % Normal 0.0-2.5 [facility] ([place]) Comment on above: Performed By: #### A BAUTISTA, ABOG, ANSG, ALB, BMP, ADIFF, CBC, GFR #### [address] [place], [place] [address] Eosinophil, Absolute 0.0 10 3/mcL Normal 0.0-0.4 [facility] ([place]) Comment on above: Performed By: #### A BAUTISTA, ABOG, ANSG, ALB, BMP, ADIFF, CBC, GFR #### [address] [address] Eosinophils/100 WBC (Bld) 0.0 % Normal 0.0-7.0 [facility] ([place]) Comment on above: Performed By: #### A BAUTISTA, ABOG, ANSG, ALB, BMP, ADIFF, CBC, GFR #### [address] [address] Lymphocyte, Absolute 1.2 10 3/mcL Normal 0.8-3.9 [facility] ([place]) Comment on above: Performed By: #### A BAUTISTA, ABOG, ANSG, ALB, BMP, ADIFF, CBC, GFR #### [address] [address] Lymphocytes/100 WBC (Bld) 9.1 % Low 10.0-50.0 [facility] ([place]) Comment on above: Performed By: #### A BAUTISTA, ABOG, ANSG, ALB, BMP, ADIFF, CBC, GFR #### [address] [address] Monocyte, Absolute 0.9 10 3/mcL Normal 0.2-1.0 [facility] ([place]) Comment on above: Performed By: #### A BAUTISTA, ABOG, ANSG, ALB, BMP, ADIFF, CBC, GFR #### [address] [address] Monocytes/100 WBC (Bld) 6.7 % Normal 1.7-13.0 [facility] ([place]) Comment on above: Performed By: #### A BAUTISTA, ABOG, ANSG, ALB, BMP, ADIFF, CBC, GFR #### [address] [address] Neutrophils/100 WBC (Bld) 83.5 % High 37.0-80.0 [facility] ([place]) Comment on above: Performed By: #### A BAUTISTA, ABOG, ANSG, ALB, BMP, ADIFF, CBC, GFR #### [address] [address] .GFRon 01-01-2023 GFR Non- 62 ml/min/1.73sqm Normal [facility] ([place]) Comment on above: Result Comment: GFR Population [...] ANSG, ALB, BMP, ADIFF, CBC, GFR #### [address] [address] GFR 75 ml/min/1.73sqm Normal [facility] ([place]) Comment on above: Result Comment: GFR Population [...] ANSG, ALB, BMP, ADIFF, CBC, GFR #### [address] [address] .NEUABSon 01-01-2023 Neutrophil, Absolute 11.3 10 3/mcL High 2.9-6.2 [facility] ([place]) Comment on above: Performed By: #### A BAUTISTA, ABOG, ANSG, ALB, BMP, ADIFF, CBC, GFR #### [address] [address] BMPon 01-01-2023 BUN/Creatinine Ratio 17 ratio Normal 7-27 [facility] ([place]) Comment on above: Performed By: #### A BAUTISTA, ABOG, ANSG, ALB, BMP, ADIFF, CBC, GFR #### [address] [address] Calcium [Mass/Vol] 8.5 mg/dL Normal 8.4-10.2 [facility] ([place]) Comment on above: Performed By: #### A BAUTISTA, ABOG, ANSG, ALB, BMP, ADIFF, CBC, GFR #### [address] [address] Chloride [Moles/Vol] 102 mmol/L Normal 98-107 [facility] ([place]) Comment on above: Performed By: #### A BAUTISTA, ABOG, ANSG, ALB, BMP, ADIFF, CBC, GFR #### [address] [address] CO2 [Moles/Vol] 29 mmol/L Normal 22-29 [facility] ([place]) Comment on above: Performed By: #### A BAUTISTA, ABOG, ANSG, ALB, BMP, ADIFF, CBC, GFR #### [address] [address] Creatinine [Mass/Vol] 0.93 mg/dL Normal 0.55-1.02 [facility] ([place]) Comment on above: Performed By: #### A BAUTISTA, ABOG, ANSG, ALB, BMP, ADIFF, CBC, GFR #### [address] [address] Electrolyte Balance 6.0 mEq/L Normal 4.0-15.0 [facility] ([place]) Comment on above: Performed By: #### A BAUTISTA, ABOG, ANSG, ALB, BMP, ADIFF, CBC, GFR #### [address] [address] Glucose [Mass/Vol] 117 mg/dL High 70-105 [facility] ([place]) Comment on above: Performed By: #### A BAUTISTA, ABOG, ANSG, ALB, BMP, ADIFF, CBC, GFR #### [address] [address] Potassium [Moles/Vol] 3.7 mmol/L Normal 3.5-5.1 [facility] ([place]) Comment on above: Performed By: #### A BAUTISTA, ABOG, ANSG, ALB, BMP, ADIFF, CBC, GFR #### [place] [address] Sodium [Moles/Vol] 137 mmol/L Normal 136-145 [facility]) Comment on above: Performed By: #### A BAUTISTA, ABOG, ANSG, ALB, BMP, ADIFF, CBC, GFR #### [place] [phone] Urea nitrogen [Mass/Vol] 16 mg/dL Normal 7-18 [facility]) Comment on above: Performed By: #### A BAUTISTA, ABOG, ANSG, ALB, BMP, ADIFF, CBC, GFR #### [place] [id number] CBCon 01-01-2023 Erythrocyte distribution width (RBC) [Ratio] 15.2 % High 11.5-14.5 [facility]) Comment on above: Performed By: #### A BAUTISTA, ABOG, ANSG, ALB, BMP, ADIFF, CBC, GFR #### [place] [phone] Hematocrit (Bld) [Volume fraction] 33.9 % Low 37.0-47.0 [facility] ([place]) Comment on above: Performed By: #### A BAUTISTA, ABOG, ANSG, ALB, BMP, ADIFF, CBC, GFR #### [address] [address] Hgb 11.0 G/dL Low 12.0-16.0 [facility] ([place]) Comment on above: Performed By: #### A BAUTISTA, ABOG, ANSG, ALB, BMP, ADIFF, CBC, GFR #### [address] [address] MCH (RBC) [Entitic mass] 26.9 pg Low 27.0-31.2 [facility] ([place]) Comment on above: Performed By: #### A BAUTISTA, ABOG, ANSG, ALB, BMP, ADIFF, CBC, GFR #### [place] [address] MCHC 32.4 G/dL Low 33.0-37.0 [facility] ([place]) Comment on above: Performed By: #### A BAUTISTA, ABOG, ANSG, ALB, BMP, ADIFF, CBC, GFR #### [place] [phone] MCV (RBC) [Entitic vol] 82.9 fL Normal 80.0-94.0 [facility] ([place]) Comment on above: Performed By: #### A BAUTISTA, ABOG, ANSG, ALB, BMP, ADIFF, CBC, GFR #### [address] [address] Platelet 313 10 3/mcL Normal 130-400 [facility] ([place]) Comment on above: Performed By: #### A BAUTISTA, ABOG, ANSG, ALB, BMP, ADIFF, CBC, GFR #### [place] [phone] Platelet mean volume (Bld) [Entitic vol] 7.4 fL Normal 7.4-10.4 [facility] ([place]) Comment on above: Performed By: #### A BAUTISTA, ABOG, ANSG, ALB, BMP, ADIFF, CBC, GFR #### [place] [phone] RBC 4.09 10 6/mcL Low 4.20-5.40 [facility] ([place]) Comment on above: Performed By: #### A BAUTISTA, ABOG, ANSG, ALB, BMP, ADIFF, CBC, GFR #### [address] [place], [place] [address] WBC 13.5 10 3/mcL High 4.6-10.8 [facility] ([place]) Comment on above: Performed By: #### A BAUTISTA, ABOG, ANSG, ALB, BMP, ADIFF, CBC, GFR #### [facility] [address] [place], [place] [address] LABORATORYOrdered By: SYSTEM SYSTEM on 01-01-2023 Basophil, [...] 12-31-2022 ABO/Rh Interp Positive Invalid Interpretation Code [facility] ([place]) Comment on above: Performed By: #### A BAUTISTA, ABOG, ANSG, ALB, BMP, ADIFF, CBC, GFR #### [address] [address] Gel ABSon 12-31-2022 Antibody Screen Gel Negative Normal [facility] ([place]) Comment on above: Performed By: #### A BAUTISTA, ABOG, ANSG, ALB, BMP, ADIFF, CBC, GFR #### [address] [address] LABORATORYOrdered By: Kenyetta Jain on 12-31-2022 ABO/Rh [...] be postoperative. IMPRESSION: Surgical changes. Interpreted by: Elian Mishra MD Preliminary Report By: Elian Mishra MD Electronically signed By Elian Mishra MD Dictated Date: 12/31/2022 12:38:10 PM Prelim Date: 12/31/2022 12:39:10 PM Sign Date: 12/31/2022 12:39:10 PM Ordering Provider: SALVADOR Nelson [facility] ([place]) .Auto Diffon 12-09-2022 Basophil, Absolute 0.1 10 3/mcL Normal 0.0-0.2 [facility] ([place]) Comment on above: Performed By: #### A BAUTISTA, ABOG, ANSG, ALB, BMP, ADIFF, CBC, GFR #### [address] [address] Basophils/100 WBC (Bld) 0.7 % Normal 0.0-2.5 [facility] ([place]) Comment on above: Performed By: #### A BAUTISTA, ABOG, ANSG, ALB, BMP, ADIFF, CBC, GFR #### [address] [address] Eosinophil, Absolute 0.1 10 3/mcL Normal 0.0-0.4 [facility] ([place]) Comment on above: Performed By: #### A BAUTISTA, ABOG, ANSG, ALB, BMP, ADIFF, CBC, GFR #### [address] [address] Eosinophils/100 WBC (Bld) 1.3 % Normal 0.0-7.0 [facility] ([place]) Comment on above: Performed By: #### A BAUTISTA, ABOG, ANSG, ALB, BMP, ADIFF, CBC, GFR #### [address] [address] Lymphocyte, Absolute 1.2 10 3/mcL Normal 0.8-3.9 [facility] ([place]) Comment on above: Performed By: #### A BAUTISTA, ABOG, ANSG, ALB, BMP, ADIFF, CBC, GFR #### [address] [address] Lymphocytes/100 WBC (Bld) 14.9 % Normal 10.0-50.0 [facility] ([place]) Comment on above: Performed By: #### A BAUTISTA, ABOG, ANSG, ALB, BMP, ADIFF, CBC, GFR #### [address] [address] Monocyte, Absolute 0.4 10 3/mcL Normal 0.2-1.0 [facility] ([place]) Comment on above: Performed By: #### A BAUTISTA, ABOG, ANSG, ALB, BMP, ADIFF, CBC, GFR #### [address] [address] Monocytes/100 WBC (Bld) 5.0 % Normal 1.7-13.0 [facility] ([place]) Comment on above: Performed By: #### A BAUTISTA, ABOG, ANSG, ALB, BMP, ADIFF, CBC, GFR #### [address] [address] Neutrophils/100 WBC (Bld) 78.1 % Normal 37.0-80.0 [facility] ([place]) Comment on above: Performed By: #### A BAUTISTA, ABOG, ANSG, ALB, BMP, ADIFF, CBC, GFR #### [address] [address] .GFRon 12-09-2022 GFR Non- 52 ml/min/1.73sqm Normal [facility] ([place]) Comment on above: Result Comment: GFR Population [...] ANSG, ALB, BMP, ADIFF, CBC, GFR #### [address] [address] GFR 63 ml/min/1.73sqm Normal [facility] ([place]) Comment on above: Result Comment: GFR Population [...] ANSG, ALB, BMP, ADIFF, CBC, GFR #### [address] [address] .NEUABSon 12-09-2022 Neutrophil, Absolute 6.2 10 3/mcL Normal 2.9-6.2 [facility] ([place]) Comment on above: Performed By: #### A BAUTISTA, ABOG, ANSG, ALB, BMP, ADIFF, CBC, GFR #### [address] [address] ALBon 12-09-2022 Albumin Level 3.6 G/dL Normal 3.5-5.0 [facility] ([place]) Comment on above: Performed By: #### A BAUTISTA, ABOG, ANSG, ALB, BMP, ADIFF, CBC, GFR #### [address] [address] BMPon 12-09-2022 BUN/Creatinine Ratio 16 ratio Normal 7-27 [facility] ([place]) Comment on above: Performed By: #### A BAUTISTA, ABOG, ANSG, ALB, BMP, ADIFF, CBC, GFR #### [address] [address] Calcium [Mass/Vol] 9.2 mg/dL Normal 8.4-10.2 [facility] ([place]) Comment on above: Performed By: #### A BAUTISTA, ABOG, ANSG, ALB, BMP, ADIFF, CBC, GFR #### [address] [address] Chloride [Moles/Vol] 99 mmol/L Normal 98-107 [facility] ([place]) Comment on above: Performed By: #### A BAUTISTA, ABOG, ANSG, ALB, BMP, ADIFF, CBC, GFR #### [address] [address] CO2 [Moles/Vol] 29 mmol/L Normal 22-29 [facility] ([place]) Comment on above: Performed By: #### A BAUTISTA, ABOG, ANSG, ALB, BMP, ADIFF, CBC, GFR #### [address] [address] Creatinine [Mass/Vol] 1.08 mg/dL High 0.55-1.02 [facility] ([place]) Comment on above: Performed By: #### A BAUTISTA, ABOG, ANSG, ALB, BMP, ADIFF, CBC, GFR #### [address] [address] Electrolyte Balance 10.0 mEq/L Normal 4.0-15.0 [facility] ([place]) Comment on above: Performed By: #### A BAUTISTA, ABOG, ANSG, ALB, BMP, ADIFF, CBC, GFR #### [address] [address] Glucose [Mass/Vol] 102 mg/dL Normal 70-105 [facility] ([place]) Comment on above: Performed By: #### A BAUTISTA, ABOG, ANSG, ALB, BMP, ADIFF, CBC, GFR #### [address] [address] Potassium [Moles/Vol] 3.8 mmol/L Normal 3.5-5.1 [facility] ([place]) Comment on above: Performed By: #### A BAUTISTA, ABOG, ANSG, ALB, BMP, ADIFF, CBC, GFR #### [place] [address] Sodium [Moles/Vol] 138 mmol/L Normal 136-145 [facility] ([place]) Comment on above: Performed By: #### A BAUTISTA, ABOG, ANSG, ALB, BMP, ADIFF, CBC, GFR #### [place] [phone] Urea nitrogen [Mass/Vol] 17 mg/dL Normal 7-18 [facility] ([place]) Comment on above: Performed By: #### A BAUTISTA, ABOG, ANSG, ALB, BMP, ADIFF, CBC, GFR #### [place] [id number] CBCon 12-09-2022 Erythrocyte distribution width (RBC) [Ratio] 14.8 % High 11.5-14.5 [facility] ([place]) Comment on above: Order Comment: Pre-A dmission Testing Performed By: #### A BAUTISTA, ABOG, ANSG, ALB, BMP, ADIFF, CBC, GFR #### [address] [address] Hematocrit (Bld) [Volume fraction] 38.2 % Normal 37.0-47.0 [facility] ([place]) Comment on above: Order Comment: Pre-A dmission Testing Performed By: #### A BAUTISTA, ABOG, ANSG, ALB, BMP, ADIFF, CBC, GFR #### [place] [id number] Hgb 12.6 G/dL Normal 12.0-16.0 [facility] ([place]) Comment on above: Order Comment: Pre-A dmission Testing Performed By: #### A BAUTISTA, ABOG, ANSG, ALB, BMP, ADIFF, CBC, GFR #### [address] [address] MCH (RBC) [Entitic mass] 27.1 pg Normal 27.0-31.2 [facility] ([place]) Comment on above: Order Comment: Pre-A dmission Testing Performed By: #### A BAUTISTA, ABOG, ANSG, ALB, BMP, ADIFF, CBC, GFR #### [address] [address] MCHC 32.9 G/dL Low 33.0-37.0 [facility] ([place]) Comment on above: Order Comment: Pre-A dmission Testing Performed By: #### A BAUTISTA, ABOG, ANSG, ALB, BMP, ADIFF, CBC, GFR #### [address] [address] MCV (RBC) [Entitic vol] 82.3 fL Normal 80.0-94.0 [facility] ([place]) Comment on above: Order Comment: Pre-A dmission Testing Performed By: #### A BAUTISTA, ABOG, ANSG, ALB, BMP, ADIFF, CBC, GFR #### [address] [address] Platelet 367 10 3/mcL Normal 130-400 [facility] ([place]) Comment on above: Order Comment: Pre-A dmission Testing Performed By: #### A BAUTISTA, ABOG, ANSG, ALB, BMP, ADIFF, CBC, GFR #### [address] [address] Platelet mean volume (Bld) [Entitic vol] 7.2 fL Low 7.4-10.4 [facility] ([place]) Comment on above: Order Comment: Pre-A dmission Testing Performed By: #### A BAUTISTA, ABOG, ANSG, ALB, BMP, ADIFF, CBC, GFR #### [facility] [address] [place], [place] [address] RBC 4.65 10 6/mcL Normal 4.20-5.40 [facility] ([place]) Comment on above: Order Comment: Pre-A dmission Testing Performed By: #### A BAUTISTA, ABOG, ANSG, ALB, BMP, ADIFF, CBC, GFR #### [place] [id number] [place], [place] [address] WBC 8.0 10 3/mcL Normal 4.6-10.8 [facility] ([place]) Comment on above: Order Comment: Pre-A dmission Testing Performed By: #### A BAUTISTA, ABOG, ANSG, ALB, BMP, ADIFF, CBC, GFR #### [address] [address] [address] KNEE W/O CONTRAST RIGHTon 12-09-2022 CT [...] 10:11:46 AM Ordering Provider: SALVADOR SHIPLEY Normal [facility] ([place]) Gel ABOon 12-09-2022 ABO/Rh Interp Positive Invalid Interpretation Code [facility]) Comment on above: Order Comment: SURG LUIZA 12/31 -AC Performed By: #### A BAUTISTA, ABOG, ANSG, ALB, BMP, ADIFF, CBC, GFR #### [place] [id number] [place] [address] Gel ABSon 12-09-2022 Antibody Screen Gel Negative Normal [facility]) Comment on above: Order Comment: SURG LUIZA 12/31 -AC Performed By: #### A BAUTISTA, ABOG, ANSG, ALB, BMP, ADIFF, CBC, GFR #### [place] [address] LABORATORYOrdered By: Danny Hernandez on 12-09-2022 ABO/Rh [...] 8:41 AM) Invalid Interpretation Code Not Detected Auto Viro/Sero SS Comment on above: Result [...] MRSA (PCR) Not detected Normal Not Detected [facility] ([place]) Comment on above: Result Comment: Note s Performed By: #### M RSAPCR #### [place] [address] MRSA PCR Int Normal [facility] ([place]) Comment on above: Result Comment: MRSA DNA [...] Below Performed By: #### M RSAPCR #### [place] [id number] Basophil percentageon 2021 Bilirubin [Mass/Vol] 0.60 mg/dL 0.20-1.00 [facility] Work Phone: Comment on above: For patients on eltr ombopag therapy, use of Dimension Albers TBIL is not recommended. Chloride [Moles/Vol] 100 mmol/L 98-107 [facility] Work Phone: Glucose [Mass/Vol] 107 mg/dL 74-106 [facility] Work Phone: Comment on above: Fasting Glucose resu lt from 100 to 125 mg/dL suggests IMPAIRED HOMEOSTASIS per A.D.A. criteria. Potassium [Moles/Vol] 3.5 mmol/L 3.5-5.1 [facility] Work Phone: Protein [Mass/Vol] 8.0 g/dL 6.4-8.2 [facility] Work Phone: Sodium [Moles/Vol] 136 mmol/L 136-145 [facility] Work Phone: Laboratory - Chemistry and C hemistry - challengeon 07-19-2021 ALP [Catalytic activity/Vol] 68 U/L 45-117 [facility] Work Phone: ALT [Catalytic activity/Vol] 24 U/L 13-56 [facility] Work Phone: CO2 [Moles/Vol] 27.0 mmol/L 21.0-32.0 [facility] Work Phone: Cobalamin (Vitamin B12) [Mass/Vol] 237 pg/mL 211-911 [facility] Work Phone: Globulin (S) [Mass/Vol] 4.4 g/dL 2.2-4.2 [facility] Work Phone: Urea nitrogen/Creatinine [Mass ratio] 15.6 mg/mg 10-20 [facility] Work Phone: No Panel Informationon 07-19 Estimated GFR (MDRD) Amer 76 mL/min >60 [facility] Work Phone: Comment on above: GFR Calc Estimated GFR (MDRD) Non-Af Amer 63 mL/min >60 [facility] Work Phone: Comment on above: Non- GFR Calc Thyroid Stimulating Hormone (TSH) 1.61 uIU/mL 0.358-3.74 [facility] Work Phone: Serum or plasma albumin quoc urement (mass/volume)on 07-19-2021 Albumin [Mass/Vol] 3.6 g/dL 3.2-5.0 [facility] Work Phone: Serum or plasma albumin/glob ulin mass ratioon 07-19-2021 Albumin/Globulin [Mass ratio] 0.8 {ratio} 0.9-2.4 [facility] Work Phone: Serum or plasma calcium quoc urement (mass/volume)on 07-19-2021 Calcium [Mass/Vol] 8.8 mg/dL 8.5-10.1 [facility] Work Phone: Serum or plasma creatinine m easurement (mass/volume)on 07-19-2021 Creatinine [Mass/Vol] 0.96 mg/dL 0.55-1.02 [facility] Work Phone: Comment on above: The validity of the calculated GFR & GFRAA in patients over 70 years has not been determined. Clinical correlation is essential. Serum or plasma urea nitroge n measurement (mass/volume)on 07-19-2021 Urea nitrogen [Mass/Vol] 15 mg/dL 7-18 [facility] Work Phone: Thin prep Papanicolaou smear with manual screeningon 07-19-2021 Thin prep Papanicolaou smear with manual screening 24 U/L 15-37 [facility] Work Phone: Thin prep Papanicolaou smear with manual screening 9 5-15 [facility] Work Phone: Glucose Glucometer (BldC) [M ass/Vol]on 03-29-2021 Glucose [Mass/Vol] 103 mg/dL 70-110 [facility] Work Phone: Comment on above: MANAGEMENT OF PATIEN T CARE PER NURSING PROTOCOL Basophil percentageon 2021 WBC (Bld) [#/Vol] 5.7 10*3/uL 4.4-11.0 [facility] Work Phone: Chloride [Moles/Vol] 102 mmol/L 98-107 [facility] Work Phone: Glucose [Mass/Vol] 92 mg/dL 74-106 [facility] Work Phone: Potassium [Moles/Vol] 3.6 mmol/L 3.5-5.1 Richard ster [facility] Work Phone: Sodium [Moles/Vol] 136 mmol/L 136-145 [facility] Work Phone: Blood erythrocytes count (nu mber/volume)on 03-23-2021 RBC (Bld) [#/Vol] 4.65 10*6/uL 4.2-5.4 [facility]: Blood hemoglobin measurement (mass/volume)on 03-23-2021 Hemoglobin (Bld) [Mass/Vol] 12.9 g/dL 12.0-15.0 [facility] Work Phone: Blood platelet mean volumeon 03-23-2021 Platelet mean volume (Bld) [Entitic vol] 9.1 fL 6.2-12.0 [facility] Work Phone: Determination of erythrocyte mean corpuscular volume (MCV)on 03-23-2021 MCV (RBC) [Entitic vol] 85.6 fL 81-99 [facility] Work Phone: Hematocrit Auto (Bld) [Volum e fraction]on 03-23-2021 Hematocrit (Bld) [Volume fraction] 39.8 % 37-47 [facility] Work Phone: Laboratory - Chemistry and C hemistry - challengeon 03-23-2021 CO2 [Moles/Vol] 28.0 mmol/L 21.0-32.0 [facility] Work Phone: Magnesium [Mass/Vol] 2.2 mg/dL 1.6-2.6 [facility] Work Phone: Urea nitrogen/Creatinine [Mass ratio] 15.9 mg/mg 10-20 [facility] Work Phone: Laboratory - Hematology and Cell countson 03-23-2021 Erythrocyte distribution width (RBC) [Entitic vol] 43.8 fL 35.1-43.9 [facility] Work Phone: Erythrocyte distribution width (RBC) [Ratio] 14.1 % 11.6-14.6 [facility] Work Phone: MCH (RBC) [Entitic mass] 27.7 pg 27.0-32.0 [facility] Work Phone: MCHC Auto (RBC) [Mass/Vol]on 03-23-2021 MCHC (RBC) [Mass/Vol] 32.4 g/dL 32-36 [facility] Work Phone: No Panel Informationon 03-23 Estimated GFR (MDRD) Amer 85 mL/min >60 [facility] Work Phone: Comment on above: GFR Calc Estimated GFR (MDRD) Non-Af Amer 70 mL/min >60 [facility] Work Phone: Comment on above: Non- GFR Calc Platelets bldon 03-23-2021 Platelets (Bld) [#/Vol] 364 10*3/uL 150-450 [facility] Work Phone: Serum or plasma calcium quoc urement (mass/volume)on 03-23-2021 Calcium [Mass/Vol] 8.7 mg/dL 8.5-10.1 [facility] Work Phone: Serum or plasma creatinine m easurement (mass/volume)on 03-23-2021 Creatinine [Mass/Vol] 0.88 mg/dL 0.55-1.02 [facility] Work Phone: Comment on above: The validity of the calculated GFR & GFRAA in patients over 70 years has not been determined. Clinical correlation is essential. Serum or plasma urea nitroge n measurement (mass/volume)on 03-23-2021 Urea nitrogen [Mass/Vol] 14 mg/dL 7-18 [facility] Work Phone: Thin prep Papanicolaou smear with manual screeningon 03-23-2021 Thin prep Papanicolaou smear with manual screening 6 5-15 [facility] Work Phone: XR Chest PA and Lateralon IMPRESSION: No acute cardiopulmonary process. 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 DIVISION OF RADIOLOGY * * *Final Report* [...] structures are intact DIVISION OF RADIOLOGY Provider, [facility] [place] - 12/29/2019 * * *Final Report* * [...] intact IMPRESSION IMPRESSION: No acute cardiopulmonary process. 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 Transcribe Date/Time: Dec 29 2019 5:25P Dictated by : DOYLE COLEMAN MD This examination was interpreted and the report reviewed and electronically signed by: DOYLE COLEMAN MD on Dec 29 2019 5:27PM EST [facility] Radiology Study observation (narrative) [facility] XR Chest PA and LateralOrder ed By: Ccf Provider on 12-29-2019 [facility] Vital Signs Date Time Vital Sign Value Performing Clinician Facility 01-01-2023 11:01-0500 Body temperature 98.06 [degF] DR SALVADOR SHIPLEY MD [facility] 01-01-2023 11:01-0500 Diastolic Blood Pressure Non-Invasive [address] SALVADOR SHIPLEY MD [facility] 01-01-2023 11:01-0500 Heart rate 55 /min DR SALVADOR SHIPLEY MD [facility] 01-01-2023 11:01-0500 Respiratory rate 20 /min DR SALVADOR SHIPLEY MD [facility] 01-01-2023 11:01-0500 Systolic Blood Pressure Non-Invasive [address] SALVADOR SHIPLEY MD [facility] 01-01-2023 07:53-0500 Body temperature 98.06 [degF] DR SALVADOR SHIPLEY MD [facility] 01-01-2023 07:53-0500 Diastolic Blood Pressure Non-Invasive [address] SALVADOR SHIPLEY MD [facility] 01-01-2023 07:53-0500 Heart rate 55 /min DR SALVADOR SHIPLEY MD [facility] 01-01-2023 07:53-0500 Respiratory rate 20 /min DR SALVADOR SHIPLEY MD [facility] 01-01-2023 07:53-0500 Systolic Blood Pressure Non-Invasive [address] SALVADOR SHIPLEY MD [facility] 01-01-2023 05:00-0500 Diastolic Blood Pressure Non-Invasive [address] SALVADOR SHIPLEY MD [facility] 01-01-2023 05:00-0500 Heart rate 59 /min DR SALVADOR SHIPLEY MD [facility] 01-01-2023 05:00-0500 Respiratory rate 16 /min DR SALVADOR SHIPLEY MD [facility] 01-01-2023 05:00-0500 Systolic Blood Pressure Non-Invasive [address] SALVADOR SHIPLEY MD [facility] 12-31-2022 15:49-0500 Heart rate 79 /min DR SALVADOR SHIPLEY MD [facility] 12-31-2022 13:06-0500 Body height [address] SALVADOR SHIPLEY MD [facility] 12-31-2022 13:06-0500 Body weight 104.[address] SALVADOR SHIPLEY MD [facility] 12-31-2022 13:06-0500 Body weight 40.82 kg/m2 DR SALVADOR SHIPLEY MD [facility] 12-31-2022 13:03-0500 Heart rate 82 /min DR SALVADOR SHIPLEY MD [facility] 12-31-2022 12:20-0500 Heart rate 67 /min DR SALVADOR SHIPLEY MD [facility] 12-31-2022 11:20-0500 Body temperature 98.06 [degF] DR SALVADOR SHIPLEY MD [facility] 12-31-2022 11:15-0500 Respiratory Rate - Anes 20 br/min DR SALVADOR SHIPLEY MD [facility] 12-31-2022 11:10-0500 Respiratory Rate - Anes 14 br/min DR SALVADOR SHIPLEY MD [facility] 12-31-2022 11:05-0500 Respiratory Rate - Anes 13 br/min DR SALVADOR SHIPLEY MD [facility] 12-31-2022 08:25-0500 Heart rate 71 /min DR SALVADOR SHIPLEY MD [facility] 12-31-2022 08:20-0500 Heart rate 65 /min DR SALVADOR SHIPLEY MD [facility] 12-31-2022 07:24-0500 Body weight 40.82 kg/m2 DR SALVADOR SHIPLEY MD [facility] 12-31-2022 07:19-0500 Body height [address] SALVADOR SHIPLEY MD [facility] 12-31-2022 07:19-0500 Body temperature 98.06 [degF] DR SALVADOR SHIPLEY MD [facility] 12-31-2022 07:19-0500 Body weight 104.[address] SALVADOR SHIPLEY MD [facility] 12-31-2022 07:19-0500 Heart rate 97 /min DR SALVADOR SHIPLEY MD [facility] 12-09-2022 07:55-[address] SALVADOR SHIPLEY MD [facility] 12-09-2022 07:55-[address] SALVADOR Akins [facility] 12-09-2022 07:55-0400 Body height [address] SALVADOR SHIPLEY MD [facility] 12-09-2022 07:55-0400 Body weight 104.[address] SALVADOR SHIPLEY MD [facility] 12-09-2022 07:55-0400 Body weight 40.82 kg/m2 DR SALVADOR SHIPLEY MD [facility] 12-09-2022 07:55-0400 Diastolic Blood Pressure Non-Invasive [address] SALVADOR SHIPLEY MD [facility] 12-09-2022 07:55-0400 Heart rate 84 /min DR SALVADOR SHIPLEY MD [facility] 12-09-2022 07:55-0400 Respiratory rate 18 /min DR SALVADOR SHIPLEY MD [facility] 12-09-2022 07:55-0400 Systolic Blood Pressure Non-Invasive [address] SALVADOR SHIPLEY MD [facility] 03-29-2021 12:27-0500 Body temperature 97.5 [degF] [facility] Work Phone: 03-29-2021 12:27-0500 Diastolic blood pressure 82 mm[Hg] [facility] Work Phone: 03-29-2021 12:27-0500 Heart rate 85 /min [facility] Work Phone: 03-29-2021 12:27-0500 Respiratory rate 16 /min [facility] Work Phone: 03-29-2021 12:27-0500 SaO2% (BldA) [Mass fraction] 94 % [facility] Work Phone: 03-29-2021 12:27-0500 Systolic blood pressure 129 mm[Hg] [facility] Work Phone: 03-29-2021 05:34-0500 Body height 160.[address] [facility] Work Phone: 03-29-2021 05:34-0500 Body mass index (BMI) [Ratio] 42 kg/m2 [facility] Work Phone: 03-29-2021 05:34-0500 Body weight 107.[address] [facility] Work Phone: Encounters Encounter Date Encounter Type Care Provider Facility Start: 01-17-2025 ambulatory Julio C Cai lity:[facility] Start: 11-19-2024 End: 11-19-2024 Patient encounter procedure Vida RIZZO -[facility] Work Phone: Start: 11-19-2024 End: 11-19-[address] Julio C Ritchie MD Work Phone: -[facility] Start: 11-10-2024 End: 11-10-[address] Julio C Ritchie MD Work Phone: -[facility]patient [facility] Start: 11-10-2024 End: 11-10-[address] Julio C Ritchie MD -[facility] Work Phone: Start: 11-10-2024 End: 11-10-2024 ambulatory Julio C Ritchie Facility:[facility] Start: 10-13-2024 End: 10-13-[address] Julio C Ritchie MD Work Phone: -Laboratory [facility] Start: 10-13-2024 End: 10-13-[address] Julio C Ritchie MD -Laboratory [facility] Start: 10-13-2024 End: 10-13-2024 ambulatory Julio C Ritchie Facility:[facility] Start: 12-31-2022 End: 01-01-[address] JULIO [...] [facility] Start: 11-21-2021 End: 11-21-2021 ambulatory [facility] Work Phone: Start: 11-21-2021 End: 11-21-2021 Patient encounter procedure [facility]-Outpatient [facility] Start: 07-19-2021 End: 07-19-2021 Patient encounter procedure [facility] Start: 03-29-2021 End: 03-29-2021 Admission to same day surgery center [facility] Start: 12-29-2019 End: 12-29-2019 Subsequent hospital visit by physician [facility] Work Phone: Radiology Comment on above: Suspected COVID-19 v irus infection [Z20.828] Procedures Date Procedure Procedure Detail Performing Clinician Start: 11-10-2024 Screening mammography Mable Ritchie MD Work Phone: Start: 12-31-[address] SALVADOR SHIPLEY MD Comment on above: Right Start: 11-21-2021 Screening mammography Start: 12-29-2019 Radiologic exam ches t 2 views Darius Espinohugh JOY OPERATOR HELPER.CONTACT CENTER DIRECTOR Work Phone: Start: 08-13-2019 Lipid 1996 panel - S bertha or Plasma Xr Lorida Work Phone: Hysterectomy DR SALVADOR Gracia MD [...] RSV Vaccine (1 - 1-dose 75+ series) [facility] Start: 08-12-2024 Lipid panel Lipid Screening [facility] Start: 10-26-2023 Covid-19 Vaccine ( season) Covid-19 Vaccine ( season) [facility] Start: 10-26-2023 Influenza vaccination Influ[facility] Vacc[facility] Start: 08-12-2022 Diabetes Screening Diabetes Screening [facility] Start: 03-29-2021 Anesthesia intraperitoneal lower abd w/laps nos ANESTH SURG LOWER ABDOMEN [facility] Work Phone: Start: 03-29-2021 Laps total hysterect 250 gm/< w/rmvl tube/ovary TLH W/T/O 250 G OR LESS [facility] Work Phone: Start: 2013 Shingrix Vaccine (1 of 2) Shingrix Vaccine (1 of 2) [facility] Start: 2008 Screening for malignant neoplasm of colon [facility] Start: 2003 Screening for malignant neoplasm of breast Mammogram Screening [facility] Start: 1984 Screening for malignant neoplasm of cervix Cervical Cancer Screening [facility] Start: 1982 Urine microalbumin profile DTaP,Tdap,Td Vaccine (1 - Tdap) [facility] Start: 1981 Anxiety Screening Anxiety Screening [facility] Start: 1981 Depression Screening Depression Screening [facility] Start: 1981 Hepatitis C screening Hepatitis C Screening [facility] Start: 1981 HIV screening HIV Screening [facility] Patient referral [facility] Work Phone: Immunizations Immunization Date Immunization Notes Care Provider [facility] 12-17-2022 influenza virus vaccine, unspecified formulation DR SALVADOR SHIPLEY MD [facility] 12-18-2021 influenza virus vaccine, unspecified formulation DR SALVADOR SHIPLEY MD [facility] 12-14-2020 influenza virus vaccine, unspecified formulation DR SALVADOR SHIPLEY MD [facility] 07-17-2020 tetanus toxoid, redu gita diphtheria toxoid, and acellular pertussis vaccine, adsorbed DR SALVADOR SHIPLEY MD [facility] 12-22-2019 influenza virus vaccine, unspecified formulation DR SALVADOR SHIPLEY MD [facility] 02-11-2019 influenza virus vaccine, unspecified formulation DR SALVADOR SHIPLEY MD [facility] Comment on above: Result Comment: 2023 -11-07: VIS DATE: 10/08/2018 12-31-2017 influenza virus vaccine, unspecified formulation DR SALVADOR SHIPLEY MD [facility] Comment on above: Result Comment: 2022: VIS DATE: 09/30/2014 12-10-2016 influenza virus vaccine, unspecified formulation DR SALVADOR SHIPLEY MD [facility] 12-25-2015 influenza virus vaccine, unspecified formulation DR SALVADOR SHIPLEY MD [facility] 12-12-2015 influenza virus vaccine, unspecified formulation DR SALVADOR SHIPLEY MD [facility] 11-28-2015 Influenza virus vaccine [facility] Payers Date Payer Category Payer Self-pay [id number] 2022 Unknown [id number] [address] [facility] E PPO [id number] 2019-Present [phone] [facility] [address] [place] [address] PPO [id number] 2016 Private Health Insurance [id number] 1965 Unknown [id number] 1965 Unknown [id number] 1965 Unknown [id number] Private Health Insurance [facility] [id number] Unknown [id number] Unknown [id number] Unknown [id number] Unknown [id number] Social History Date Type Detail Facility [facility] Work Phone: Start: 01-17-2021 Tobacco smoking stat [facility] Unknown if ever smoked [facility] Work Phone: Start: 1965 Sex Assigned At Female [facility] Start: 03-22-2021 End: 12-09-2022 Tobacco smoking status Never smoked tobacco (finding) [facility] Sex Assigned At Sex [facility] Start: 03-01-2013 Tobacco use and exposure Smokeless tobacco non-user [facility] Start: 12-29-2019 Alcoholic beverage intake Not Asked [facility] Start: 12-29-2019 History of Social function [facility] Start: 12-29-2019 Tobacco use panel [facility] Start: 1965 Sex assigned at Not on file C [facility] Start: 11-29-2019 End: 12-29-2019 Exposure to SARS-CoV-2 (event) Not sure [facility] Medical Equipment Procedure Code Equipment Code Equipment [...] Assessment Result Facility 01-01-2023 Functional Status 2 [facility] 12-31-2022 Functional Status [facility] 12-31-2022 Functional Status Assistive Erika ce Gait belt, Walker [facility] 12-31-2022 Functional Status 1st floor bedr oom, 1st floor bathroom [facility] 12-31-2022 Functional Status [facility] 12-31-2022 Functional Status [facility] 12-31-2022 Functional Status Maintained, More than 8 hours [facility] 03-29-2021 Functional status Ambulates [facility] Work Phone: Mental Status Date Assessment Result Facility 01-01-2023 Mental Status Orientation Oriented x 4 [facility] 12-31-2022 Mental Status [facility] 12-31-2022 Mental Status [facility] 03-29-2021 Cognitive function Voice/Name [facility] Work Phone: Clinical Notes 12-29-2019 to 11-19-2024 Virginia Gray (Rt), Tech - 12/29/2019 5:00 PM EST Note Date & Type Note Facility 11-19-2024 Progress note [facility] 01-01-2023 Nurse Discharge summary Discharged to home with . Escorted to the exit via w/c per MARIUM Lee. Left at 1300. [facility] 01-01-2023 Note Date of Service 01/01/2023 Chief [...] Result Date: December 31, 2022 Verified By: ELIAN MISHRA MD CLINICAL STATEMENT: IMPRESSION: Surgical changes. [...] patient, discussed plan of care with nursing, perinatal social worker, therapy and primary team, collaborating with physician, and documenting in chart. Digitally Signed by RICHARD CRAIN on 01/01/2023 01:03 PM [facility] 01-01-2023 Note Discharge Instructions Thank you for allowing [facility] to assist you with your healthcare needs. The following is important discharge information regarding your hospital visit. Your Care Team CHAU COATS, SALVADOR CUEVA MD, LISA APRN-CNP Your Diagnosis Hypertension Osteoarthritis Sleep apnea Status post total right knee replacement What to do next Follow Up Appointments Follow Up with DARIO WOODY PA-C, Orthopedic When 01/13/2023 03:00 PM EST Why: This is your post-op appointment. Follow-up as scheduled. Where: [facility] [address] [place] [address]- Follow Up with [facility] When 01/02/2023 09:30 AM EST Why: This is your first physical therapy appointment. Follow-up as scheduled. Where: [address] [place] [address]- [phone] The Following Treatments Have Been Ordered for You Discharge Labs No qualifying data available. Discharge Radiology No qualifying data available. Other Therapies Physical Therapy Outpatient Eval & Treat - Future -- 01/02/23, Non-[facility], Weightbearing as tolerated. Limit flexion to [...] weeks postoperatively for DVT prophylaxis. Pickup at [facility]/pharmacy #[id number] 01/01 9AM New docusate-senna (Senokot S 50 mg-8.6 mg oral tablet) 2 tab(s) by mouth Two (2) times a day Duration: 3 Days Take until first bowel movement, then as needed Pickup at [facility]/pharmacy #[id number] 01/01 9AM New doxycycline (doxycycline hyclate 100 mg oral capsule) 1 cap by mouth Every 12 hours Duration: 14 Days Pickup at [facility]/pharmacy #[id number] 01/01 9AM New famotidine (Pepcid 20 mg oral tablet) 1 tab(s) by mouth Once a day Pickup at [facility]/pharmacy #[id number] 01/01 9AM New meloxicam (Mobic 7.5 mg oral tablet) 1 tab(s) by mouth Twice daily with meals Duration: 30 Days Do not take any other nonsteroidal anti-inflammatories while on meloxicam/ Mobic Pickup at [facility]/pharmacy #[id number] Start Tomorrow New oxyCODONE (oxyCODONE 5 mg oral tablet ( IMMEDIATE release )) See instructions Status post total right knee replacement 1-2 tab(s) Oral q4h Pickup at [facility]/pharmacy #[id number] 01/01 12PM Unchanged cholecalciferol (Vitamin [...] Every day None While Here Pharmacy Information [facility]/pharmacy #[id number]: [address] [place], [place] [phone] What How Much When Comments Stop Taking [...] retail pharmacies. Medication Leaflets doxycycline (oral/injection) (DOX caitlin cook) Acticlate, Adoxa, Alodox, Avidoxy, Doryx, Doryx MPC, Lymepak, Mondoxyne NL, Monodox, Morgidox, Morgidox 1t305bc, Morgidox 0k912sr, Okebo, Oracea, Targadox, Vibramycin, Vibramycin Monohydrate What [...] bone and tooth development in a nursing . Do not breastfeed while you are taking doxycycline. Doxycycline can cause permanent yellowing or graying of the teeth in children younger than 8 years old. Children should use doxycycline only in cases of severe or life-threatening conditions such as anthrax or [place] spotted fever. The benefit of treating a [...] may report side effects to FDA at 5-270-HLM-5518. What other drugs will affect doxycycline? Sometimes it is not safe to use certain medications at the same time. Some drugs can affect your blood levels of other drugs you take, which may increase side effects or make the medications less effective. Other drugs may affect doxycycline, including prescription and agzo-xeu-quzsyih medicines, vitamins, and herbal products. Tell your [...] to ensure that the information provided by [employer]. ('Multum') is accurate, up-to-date, and complete, but no guarantee is made to that effect. Drug information contained herein may be time sensitive. [employer] information has been compiled for use by healthcare practitioners and consumers in the [place] and therefore [employer] does not warrant that uses outside of the [place] are appropriate, unless specifically indicated otherwise. [facility] drug information does not endorse drugs, diagnose patients or recommend therapy. [employer] drug information is an informational resource designed [...] effective or appropriate for any given patient. [employer] does not assume any responsibility for any aspect of healthcare administered with the aid of information [employer] provides. The information contained herein is not intended to cover all possible uses, directions, precautions, warnings, drug interactions, allergic reactions, or adverse effects. If you have questions about the drugs you are taking, check with your doctor, nurse or pharmacist. Copyright 5712-2464 [employer]. Version: 25.. Revision Date: 10/30/2022. famotidine (oral/injection) [...] may report side effects to FDA at 1-594-OKN-9315. What other drugs will affect famotidine? Famotidine oral can make it harder for your body to absorb other medicines you take by mouth. Tell your doctor if you are taking: cefditoren; dasatinib; delavirdine; fosamprenavir; or tizanidine (if you are taking famotidine liquid). This list is not complete. Other drugs may affect famotidine, including prescription and uvfi-nzp-alqpvut medicines, vitamins, and herbal products. Not all [...] to ensure that the information provided by [employer]. ('Multum') is accurate, up-to-date, and complete, but no guarantee is made to that effect. Drug information contained herein may be time sensitive. [employer] information has been compiled for use by healthcare practitioners and consumers in the [place] and therefore [employer] does not warrant that uses outside of the [place] are appropriate, unless specifically indicated otherwise. [facility] drug information does not endorse drugs, diagnose patients or recommend therapy. [facility] drug information is an informational resource designed [...] effective or appropriate for any given patient. [facility] does not assume any responsibility for any aspect of healthcare administered with the aid of information [facility] provides. The information contained herein is not intended to cover all possible uses, directions, precautions, warnings, drug interactions, allergic reactions, or adverse effects. If you have questions about the drugs you are taking, check with your doctor, nurse or pharmacist. Copyright 6253-9662 [facility]. Version: . Revision Date: 09/16/2022. oxycodone (ox [...] The extended-release form of oxycodone is for belugd-snj-rqvaa treatment of pain and should not be [...] against the law. Stop taking all other treidq-lvj-bkhxf opioid pain medicines when you start taking [...] may report side effects to FDA at 2-886-KZR-3691. What other drugs will affect oxycodone? You [...] may affect oxycodone. This includes prescription and iczv-rbg-hqvscea medicines, vitamins, and herbal products. Not all [...] to ensure that the information provided by [employer]. ('Multum') is accurate, up-to-date, and complete, but no guarantee is made to that effect. Drug information contained herein may be time sensitive. [employer] information has been compiled for use by healthcare practitioners and consumers in the [place] and therefore [employer] does not warrant that uses outside of the [place] are appropriate, unless specifically indicated otherwise. [employer]'s drug information does not endorse drugs, diagnose patients or recommend therapy. [employer] drug information is an informational resource designed [...] effective or appropriate for any given patient. [facility] does not assume any responsibility for any aspect of healthcare administered with the aid of information [facility] provides. The information contained herein is not intended to cover all possible uses, directions, precautions, warnings, drug interactions, allergic reactions, or adverse effects. If you have questions about the drugs you are taking, check with your doctor, nurse or pharmacist. Copyright 8229-9501 [facility] [employer]. Version: 16.. Revision Date: 09/27/2022. meloxicam (oral/injection) [...] may report side effects to FDA at 9-385-ELR-6983. What other drugs will affect meloxicam? Ask [...] drugs may affect meloxicam, including prescription and atax-wdd-rqmkrzo medicines, vitamins, and herbal products. Not all [...] to ensure that the information provided by [employer]. ('Multum') is accurate, up-to-date, and complete, but no guarantee is made to that effect. Drug information contained herein may be time sensitive. [employer] information has been compiled for use by healthcare practitioners and consumers in the [place] and therefore [employer] does not warrant that uses outside of the [place] are appropriate, unless specifically indicated otherwise. [facility] drug information does not endorse drugs, diagnose patients or recommend therapy. [facility] drug information is an informational resource designed [...] effective or appropriate for any given patient. [employer] does not assume any responsibility for any aspect of healthcare administered with the aid of information [employer] provides. The information contained herein is not intended to cover all possible uses, directions, precautions, warnings, drug interactions, allergic reactions, or adverse effects. If you have questions about the drugs you are taking, check with your doctor, nurse or pharmacist. Copyright 7910-3560 [employer]. Version: 16.. Revision Date: 05/01/2022. aspirin (oral) ( pir in) Aspi-Cor, Daniel Plus, Durlaza, Ecotrin, Miniprin, Vazalore What is the most important information I should know about aspirin? Aspirin can cause Alfredo's syndrome, a serious and sometimes fatal condition in children. What is aspirin? Aspirin is a salicylate (wl-ZHZ-fx-ate) that is used to treat pain, and [...] breastfeed while using (more content not included)... [facility] 01-01-2023 Hospital Discharg e instructions Patient Education 01/01/2023 07:18:17 5 - [facility] Post-op Instruction 09/2016 (29483) [facility] Post-operative Instructions PLEASE FOLLOW [facility] POST-OP INSTRUCTIONS GIVEN WATCH FOR SIGNS OF INFECTION: call the office ([phone]) if experencing any of the following: (Usually [...] on your follow up instructions. Form: 338A (50142) R: 06/30 Follow Up Care 09/10/2022 14:25:57 With:[facility] Address: [address] [place] [address] [place] [address]- [phone] When:01/02/2023 09:30:00 Comments:This is your first physical therapy appointment. Follow-up as scheduled. With:DARIO WOODY PA-C, Orthopedic Address: [facility] [place] [address]- When:01/13/2023 15:00:00 Comments:This is your post-op appointment. Follow-up as scheduled. [facility] 01-01-2023 Note Date of Service January 01, [...] not have listed on our medications at [facility]. She states [...] that she can take with her to [facility]. 5. H & H: 11.0/33.9, asymptomatic. Postoperative [...] would like her prescriptions E scribed to [facility] in [facility]. She will follow-up per postoperative instructions. She will contact her office upon discharge with any concerns or questions. PT order will be placed on chart for her to take to physical therapy so they are aware of the restrictions. I have reviewed the [place] Automated Rx Reporting System (OARRS) report for [...] DARIO WOODY PA-C on 01/01/2023 07:15 AM [facility] 01-01-2023 Note Date of Service January 01, [...] not have listed on our medications at [facility]. She states she does estradiol once weekly. [...] that she can take with her to [facility]. 5. H & H: 11.0/33.9, asymptomatic. Postoperative [...] would like her prescriptions E scribed to [facility] in [facility]. She will follow-up per postoperative instructions. She will contact her office upon discharge with any concerns or questions. PT order will be placed on chart for her to take to physical therapy so they are aware of the restrictions. I have reviewed the [place] Automated Rx Reporting System (OARRS) report for [...] DARIO WOODY PA-C on 01/01/2023 07:15 AM [facility] 12-31-2022 Note ORIGINAL EXAMINATION: TWO XRAY VIEWS OF THE RIGHT KNEE 12/31/2022 11:32 am COMPARISON: None. HISTORY: ORDERING SYSTEM PROVIDED HISTORY: Reason for Exam: Status Post Arthroplasty FINDINGS: A complete knee replacement is identified. The components appear well seated and intact. No acute fracture or dislocation is identified. Gas and fluid in the soft tissues could be postoperative. IMPRESSION: Surgical changes. Interpreted by: Elian Mishra MD Preliminary Report By: Elian Mishra MD Electronically signed By Elian Mishra MD Dictated Date: 12/31/2022 12:38:10 PM Prelim Date: 12/31/2022 12:39:10 PM Sign Date: 12/31/2022 12:39:10 PM Ordering Provider: SALVADOR SHIPLEY [facility] 12-31-2022 Anesthesiology Consult note Patient: RADHA IBRAHIM Age: 57 years Sex: Female : 1965 Associated Diagnoses: None Author: NABIL MONTES Preoperative Information Time of last food or [...] Father Heart attack Father Procedure history: Hysterectomy ([id number]). ORIF - Open reduction of fracture of ankle with internal fixation ([id number]). Comments: 12/09/2022 8:02 EDT - CAT [place] RIGHT ORIF - Open reduction and internal fixation of fracture ([id number]). Comments: 12/09/2022 8:02 CAT [place] WRIST Rotator cuff repair ([id number]). Comments: 12/09/2022 8:02 CAT [place] RIGHT Social History Social & Psychosocial Habits Alcohol [...] Resp Rate 15 br/min (DEC 31 07:19) CNK146 mmHg (DEC 31 08:25) DBP63 mmHg (DEC 31 08:25) BMI40.82 (DEC 31 07:24) Measurements from flowsheet : Measurements 12/31/2022 7:24 EST Body Mass Index 40.82 kg/m2 12/31/2022 7:19 EST Height 160 cm Admission Weight 104.5 kg Luck Body Weight 52.38 kg Admission Body Mass [...] Provider #1 Bedside Time Out NABIL MONTES APRN-VBA DEVELOPER Provider #2 Bedside Time Out Agnieszka Montes [...] EST Designated Person #1 We May Share [facility] [phone] Designated Person #1 Relationship Spouse Privacy Restrictions Requested None Body Mass Index 40.82 kg/m2 Status No, per patient Sensory Deficits None Diagnosed With Sleep Apnea Yes Advanced Directives Yes Advance Directive Type [place] Declaration (Living Will) Advance Directive Location Unable [...] 8:40 Anesthesia Evaluation Performed By NABOR HEARN APRN-VBA DEVELOPER Anesthesia Evaluation Result Approved Individuals Taught Patient, Spouse Barriers to Learning None evident Teaching Method Explanation, Printed materials Preferred Spoken Language Malagasy Preferred Written Language Malagasy Total Joint Book Given Yes Pre Procedure/Surgery [...] Height 160 cm Admission Weight 104.5 kg Luck Body Weight 52.38 kg Admission Body Mass [...] no difficulties Skin Temperature Warm Skin Description [place], Dry Skin Integrity Intact Neurological Symptoms Patient [...] Upper/Half-Length side-rails up . Assessment and Plan [place] Society of Anesthesiologists (ASA) physical status classification: Class III. Anesthetic Preoperative Plan Premedication: intravenous. Anesthetic technique: MAC, Regional, Spinal. Induction: intravenously. Maintenance airway: Mask. Regional: Spinal, Adductor Canal Block. Postoperative pain management: Per surgeon. Risks discussed: nausea, vomiting, headache, sore throat, dental injury, hypotension, allergic reaction, serious complications. Informed consent: signed by patient. Digitally Signed by NABIL MONTES on 12/31/2022 08:43 AM [facility] 12-09-2022 Note ORIGINAL EXAMINATION: CT OF THE [...] 12/09/2022 10:11:46 AM Ordering Provider: SALVADOR SHIPLEY [facility] 12-09-2022 Note Sinus rhythm Probable left atrial enlargement Abnormal R-wave progression, early transition Left ventricular hypertrophy Electronic Signature: ALL CORBIN MD 12/09/2022 16:50:17 [facility] 12-29-2019 History of Presen t illness Narrative [...] 2019 5:19 PM documented in this encounter [facility] Evaluation + Plan note Future Appointments [facility] Evaluation note No assessment inform ation available [facility] Work Phone: Evaluation note Diagnosis Suspected COVID-19 virus infection [facility] Diagnosis Onset Date Resolution Status Admit Date Positive colorectal cancer screening using Cologuard test acute November 19, 2024 7:27am [facility] Work Phone: Hospital course Narrative No data available for this section [facility] Hospital Discharge instructions No data available for this section [facility] Progress note No data available for this section [facility] Prodnaai note Author Vida Cohn [facility] Note Date/Time November 19, 2024 7:50am [facility] [address] [place] [address] OFFICE VISIT Date of Service: 11/19/24 MR#: [id number] Acct: [id number] Name: RADHA IBRAHIM Rep #: [id number] : 1965 Provider: MATTHIAS Cramer Age/Sex: 59/F Location: [facility] Status: Signed Intake Vital Signs 03/29/21 06:34 Height 5 ft 3 in Intake Visit Reasons: + COLOGUARD Chief Complaint: Positive Cologuard Electronic Equipment Installer Required: No Accompanied by: Self Is patient in pain?: No Allergies sulfamethoxazole (From Bactrim) Allergy (Verified 11/19/24 07:39) Rash terbinafine (From Lamisil) Allergy (Verified 11/19/24 07:39) Rash trimethoprim (From Bactrim) Allergy (Verified 11/19/24 07:39) Rash Medications ?Medication ?Instructions ?Recorded ?Confirmed ?Type multivitamin with folic acid 400 1 tab PO DAILY 11/19/24 History mcg tablet (Thera) estradiol 0.01% (0.1 mg/gram) 1 appful vaginal TAYLOR 07/2511/04/24 History vaginal cream lisinopril 20 1 tab PO BID 08/11/20 History mg-hydrochlorothiazide 12.5 mg tablet cholecalciferol (vitamin D3) 25 25 mcg PO DAILY 11/19/24 History mcg (1,000 unit) chewable tablet (Vitamin D3) PFSH Medical History BERTA (obstructive sleep apnea) IFG (impaired fasting glucose) COVID Post-menopausal Wears glasses Alcohol use Arthritis Low iron Migraine headache Non-smoker Hypertension Surgical History History of hysteroscopy Hx of colonoscopy Hx of repair of right rotator cuff Hx of right knee surgery History of open reduction and internal fixation (ORIF) procedure Social History Smoking Status: Never smoker HPI HPI Chief Complaint: Positive Cologuard Details: RADHA IBRAHIM, is a 59 F who presents to the office today for establishment. Patient referred from primary care provider after a positive Cologuard test. Patient took a Cologuard about 1 month ago. Patient denies any GI symptoms at this time. She has no constipation diarrhea or blood in her stool. She has a regular bowel movement 1-2 times per day. Last colonoscopy was 10 to 12 years ago with no abnormalities. She denies any family history of colon cancer. ROS Const Constitutional: No fatigue, fever(s) or weight change ENT ENT: No difficulty swallowing Gastro GI: No abdominal pain, belching, bloating, change in bowel habits, change in stool character, coffee ground emesis, constipation, cramping, diarrhea, heartburn, difficulty swallowing, feeling full early, excessive flatus, incontinent of stools, Vomiting blood/hematemesis, Blood in stool, loose stools,Black,tarry stools, nausea/dyspepsia, pain with swallowing, vomiting or other Musc Musculoskeletal: No joint pain Skin Skin: No yellowing of the eye or itchy eyes Psych Psychiatric: No anxiety and No depression Endo Endocrine: No fatigue or weight change Aller/Imm Allergy/Immunologic: No itchy eyes Sebas/Lymp Hematologic/Lymphatic: No easy bleeding or easy bruising Exam Const General: cooperative, healthy appearing and comfortable Orientation: alert HENMT Head: normal to inspection Eyes General: appearance normal, both eyes and all related structures Neck Neck: normal visual inspection Chest Chest palpation & inspection: normal inspection of the chest Resp Effort & Inspection: normal respiratory effort Cardio Rate: regular rate Rhythm: regular rhythm GI Inspection: normal to inspection Auscultation: normal bowel sounds Palpation: soft, no hepatosplenomegaly, not firm, no guarding and nontender Assessment and Plan Assessment and Plan (1) Positive colorectal cancer screening using Cologuard test: Status: Acute Plan: Radha is a 59-year-old female patient here today for evaluation after having a positive Cologuard test 1 month ago. Patient denies any GI symptoms at this point including constipation, diarrhea, or blood in her stool. Last colonoscopywas 10 to 12 years ago with no abnormalities. She denies family history of colon cancer. Patient was scheduled for colonoscopy today. - Colonoscopy - Follow-up as needed Note: Over 40 Females speech recognition cost engineer software was used to create portions of this document. Sound-alike and misspelled words, as well as other cost engineer errors may be contained in the documentation. Coding Level of Care Code Off vis,new,level 3 Diagnoses Positive colorectal cancer screening using Cologuard test R19.5 11/19/24 0750 <Electronically signed by Vida RIZZO> Date _ Vida RIZZO Cosigner Signature: Date (if applicable) CC: ~ [facility] Work Phone: Reason for referral (narrative)No reason for referral information availableWMercy [facility] Work Phone: Chief Complaint and Reason for Visit Chief Complaint TLH, BSO Chief Complaint SCREENING Chief Complaint Admit Date SCREENING November 10, 2024 8:01am + COLOGUARD November 19, 2024 7:27am Reason for Visit Admit Date Positive colorectal cancer screening usi ng Cologuard test November 19, 2024 7:27am Advance Directives No Advanced Directives Records Found Advance Directive Response Recorded Date/ Time Living Will No January 17 10:44am Power of Jockey'S Agent No January 17, 2021 10:44am Summary Purpose Family History No Family History Records Found Additional Source Comments Goals (unrecognized section and content) Goals may be documented in a n alternate sectionGoals may be documented in an alternate section No data available for this section No data available for this section No data available for this sectionGoals may be documented in an alternate sectionGoals may be documented in an alternate sectionGoals may be documented in an alternate section Patient Care team informatio n (unrecognized section and content) Automotive Manager Relationship Specialty Start Date End Date Tre Kim DO PCP - General Family Medicine 03/01/13 Team Status: Active Member Role/Relationship Status Dates Dr. Tre Kim DO Family Provider Active Dr. Julio C Ritchie MD Primary Care Provider Acti ve Team Status: Inactive Member Role/Relationship Status Dates Dr. Julio C Ritchie MD Primary Care Provider Acti ve Start: October 13, 2024 End: October 13, 2024 Dr. Julio C Ritchie MD Attending Provider Active Start: October 13, 2024 End: October 13, 2024 Dr. Julio C Ritchie MD Referring Provider Active Start: October 13, 2024 End: October 13, 2024 Team Status: Active Member Role/Relationship Status Dates Dr. Julio C Ritchie MD Primary care physician Act álvaro Team Status: Inactive Member Role/Relationship Status Dates Dr. Julio C Ritchie MD Primary care physician Act álvaro Start: October 13, 2024 End: October 13, 2024 Dr. Julio C Ritchie MD Attending physician Active Start: October 13, 2024 End: October 13, 2024 Dr. Julio C Ritchie MD Referring Provider Active Start: October 13, 2024 End: October 13, 2024 Team Status: Inactive Member Role/Relationship Status Dates Dr. Julio C Ritchie MD Primary care physician Act álvaro Start: November 10, 2024 End: November 10, 2024 Dr. Julio C Ritchie MD Attending physician Active Start: November 10, 2024 End: November 10, 2024 Dr. Julio C Ritchie MD Referring Provider Active Start: November 10, 2024 End: November 10, 2024 Team Status: Inactive Member Role/Relationship Status Dates Dr. Julio C Ritchie MD Primary care physician Act álvaro Start: November 19, 2024 End: November 19, 2024 Dr. Julio C Ritchie MD Referring Provider Active Start: November 19, 2024 End: November 19, 2024 MATTHIAS Cramer Attending physician Active Start: November 19, 2024 End: November 19, 2024 INFORMATION SOURCE (unrecogn ized section and content) DATE CREATED AUTHOR 01/08/[address] [facility] ([place]) DATE CREATED AUTHOR AUTHOR'S ORGANIZ ATION 01/03/[address] [facility] Source Comments (unrecognize d section and content) In the event this informatio n is protected by the Federal Confidentiality of Alcohol and Drug Abuse Patient Records regulations: The Federal rules restrict any use of the information to criminally investigate or prosecute any alcohol or drug abuse patient.[facility] Reason for Visit (unrecogniz ed section and content) Specialty Diagnoses / Procedures Referred By Contac t Referred To Contact Internal Medicine / URGENT CARE CLINIC Diagnoses cough, sore throat, congestion Procedures URGENT CARE [facility] [address] [place] [address] Referral ID Status Reason Start Date Expiration Date Visits Re quested Visits Authorized [id number] Closed 12/29/2019 03/28/2020 99 99 FOR RECORDS [...] BE BASED ON THE PRIMARY CLINICAL RECORDS. [facility]. provides no warranty or guarantee of the accuracy or completeness of information in this document.
[2025-01-17] MEDS: Lactated Ringers 1,000 ML 15 ML IV (06:24)
--- NOTE | 2025-01-17 06:37 | PCM.HP.STD ---
HPI - General General Date of Admission: 01/17/25 Date of Service: 01/17/25 Chief Complaint: Positive Cologuard HPI Narrative RADHA IBRAHIM, is a 59 F who presents Chief Complaint: Positive Cologuard Patient referred from primary care provider after a positive Cologuard test. Patient took a Cologuard about 1 month ago. Patient denies any GI symptoms at this time. She has no constipation diarrhea or blood in her stool. She has a regular bowel movement 1-2 times per day. Last colonoscopy was 10 to 12 years ago with no abnormalities. She denies any family history of colon cancer. [facility] Medical History Sleep apnea Leg cramps BERTA (obstructive sleep apnea) IFG (impaired fasting glucose) COVID Post-menopausal Wears glasses Alcohol use Arthritis Non-smoker Hypertension Home Medications ?Medication ?Instructions ?Recorded ?Last Taken ?Type multivitamin with folic acid 400 1 tab PO DAILY 04/30/16 Unknown History mcg tablet (Thera) estradiol 0.01% (0.1 mg/gram) 1 appful vaginal TAYLOR 08/11/20 Unknown History vaginal cream lisinopril 20 1 tab PO BID 08/11/20 Unknown History mg-hydrochlorothiazide 12.5 mg tablet cholecalciferol (vitamin D3) 25 25 mcg PO DAILY 03/22/21 Unknown History mcg (1,000 unit) chewable tablet (Vitamin D3) THC GUMMY 1 gummy PO QHS PRN PRN insomnia 01/14/25 Unknown History Allergy/AdvReac Type Severity Reaction Status Date / Time sulfamethoxazole (From Allergy Rash Verified 01/17/25 06:23 Bactrim) terbinafine (From Lamisil) Allergy Rash Verified 01/17/25 06:23 trimethoprim (From Bactrim) Allergy Rash Verified 01/17/25 06:23 Surgical History History of hysteroscopy Hx of colonoscopy Hx of repair of right rotator cuff Hx of right knee surgery History of open reduction and internal fixation (ORIF) procedure Social History Smoking Status: Never smoker ROS Constitutional Constitutional: Denies fatigue, fever(s), poor appetite, weight gain or weight loss Gastrointestinal Gastrointestinal: Denies belching, bloating, change in bowel habits, change in stool character, chewing difficulty, coffee ground emesis, constipation, cramping, diarrhea, dyspepsia, dysphagia, early satiety, excessive flatus, fecal incontinence, heartburn, hematemesis, hematochezia, hemorrhoids, loose stools, melena, nausea, odynophagia, rectal bleeding, tenesmus, vomiting or weight changes Physical Exam Const alert, oriented x3, no apparent distress and healthy appearing General Appearance: cooperative GI normal to inspection, nondistended, normoactive bowel sounds, soft to palpation, non-tender and non-distended Percussion: normal to percussion Rectal Exam: deferred Assessment & Plan Assessment/Plan (1) Positive colorectal cancer screening using Cologuard test: PLAN: Assessment and Plan Assessment and Plan (1) Positive colorectal cancer screening using Cologuard test: Status: Acute Plan: Radha is a 59-year-old female patient here today for evaluation after having a positive Cologuard test 1 month ago. Patient denies any GI symptoms at this point including constipation, diarrhea, or blood in her stool. Last colonoscopy was 10 to 12 years ago with no abnormalities. She denies family history of colon cancer. Patient was scheduled for colonoscopy today. - Colonoscopy - Follow-up as needed]
--- NOTE | 2025-01-17 06:48 | PRE.ANES_ITS ---
ASA Classification* ASA Classification ASA Classification: 3 (BMI 40, HTN) Assessment & Plan Anesthesia* Anesthesia Assessment Anesthesia Assessment: Discussed sedation and/or anesthesia options, risks, benefits, and alternatives with patient/parents/legal guardian/POA. Questions invited. The patient/parents/legal guardian/POA seems to understand and agrees to proceed with anesthesia plan. Reviewed the physical assessment, medical history, allergy history and patient home medications list prior to surgery/procedure/anesthetic and documented any changes. Performed airway and anesthesia risk assessments. Anesthesia Type Anesthesia Type: MAC History Source History Obtained from:: Patient and Chart Anesthesia Focused Assessment* Temperature: 98.8 F Pulse Rate: 64 Blood Pressure: 153/99 Respiratory Rate: 16 Pulse Ox: 100 Oxygen Delivery Method: Room Air Airway Assessment Mouth opens: >3 cm Mallampati Score: III Teeth Condition: Intact Neck Range of motion (ROM): Full ROM Labs Anesthesia Preop lab: CBC WBC, (4.4-11.0) 5.7 K/mm3 03/23/21, 10:15 RBC, (4.2-5.4) 4.65 M/mm3 03/23/21, 10:15 Hgb, (12.0-15.0) 12.9 g/dL 03/23/21, 10:15 Hct, (37-47) 39.8 % 03/23/21, 10:15 Plt Count, (150-450) 364 K/mm3 03/23/21, 10:15 CHEMISTRY Potassium, (3.3-5.1) 3.4 mmol/L 10/13/24, 11:22 Sodium, (133-145) 135 mmol/L 10/13/24, 11:22 Magnesium, (1.6-2.6) 2.2 mg/dL 03/23/21, 10:13 BUN, (4-19) 13 mg/dL 10/13/24, 11:22 Creatinine, (0.70-1.20) 0.92 mg/dL 10/13/24, 11:22 Glucose, (70-99) 91 mg/dL 10/13/24, 11:22 POC Glucose, (70-110) 103 mg/dL 03/29/21, 06:31 TSH, (0.300-4.200) 1.440 uIU/mL 10/13/24, 11:22 COAG PT, (11.7-14.9) 12.5 SECONDS 05/01/16, 13:45 Pre-Assessment Diagnosis/Proposed Procedure Planned Operative Procedure(s): COLONOSCOPY Anesthesia History 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 When Was Last Pacemaker Check QUESTION #4 FULL TEXT: You/Your Family Experience fever (hyperthermia) with Anesthesia Last Oral Intake Last Oral intake: Last Oral Intake NPO since 04:00 01/17/25 06:25 Meds taken in AM with sips of No 01/17/25 06:25 water? Meds patient instructed to take am of surgery PONV PONV - advertising account executive: PONV - advertising account executive Female Yes 01/14/25 09:09 HX of Motion Sickness No 01/14/25 09:09 HX of N/V After Surgery No 01/14/25 09:09 Non-Smoker Yes 01/14/25 09:09 Duration of Surgery greater No 01/14/25 09:09 than 60 minutes Number of Risk Factors 2 01/14/25 09:09 PONV Score Moderate Risk 01/14/25 09:09 Height & Weight Height & Weight: Anesthesia: Height & Weight Height 5 ft 3 in 01/17/25 06:25 Weight: 101.8 kg 01/17/25 06:25 Body Mass Index (BMI) 39.7 01/17/25 06:25 Respiratory Assessment Respiratory Assessment - advertising account executive: Respiratory Tract Infection Hx - advertising account executive Hx Respiratory Tract Infection No 01/14/25 09:09 STOP Sleep Apnea STOP Sleep Apnea - advertising account executive: STOP Sleep Apnea - advertising account executive Hx Hypertension Yes: PER PT, CONTROLLED ON 01/14/25 09:09 MEDS Hx Sleep Apnea Yes 01/14/25 09:09 CPAP No 01/14/25 09:09 BIPAP No 01/14/25 09:09 Do you snore loudly (louder than talking or can be heard Do you often feel tired/ fatigued/ sleepy during daytime? Has anyone observed you stop breathing during sleep? STOP Results Positive 01/14/25 09:09 QUESTION #5 FULL TEXT : Do you snore loudly (louder than talking or can be heard through closed doors)? 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 Specify any problems Hx of Preganancy in last 3 No 01/14/25 09:09 Months Nurse Filling Out Transfusion MGRIFFITH 01/14/25 09:09 & Questions: Date: 01/14/25 01/14/25 09:09 Time: 09:11 01/14/25 09:09 Patient unable to answer at this time (ie. confused, unrespo /Reproduction History /Reproductive History - advertising account executive: /Reproductive Hx- advertising account executive Hx Now No 01/14/25 09:09 Gestational Age (in weeks): EDC: Hx Hx Para Hx Section SAB No 01/14/25 09:09 Does the father of the baby or his family experience fever w Father of the baby Malignant Hypertension history comment Active Medications Active Medications: Current Medications Generic Name Dose Route Start Last Admin Trade Name Freq PRN Reason Stop Dose Admin Lactated Ringer's 1,000 mls @ 15 mls/hr 01/17/25 06:15 01/17/25 06:24 IV 15 mls/hr .Q48H LUIZA Administration PFSH Medical History Sleep apnea Leg cramps BERTA (obstructive sleep apnea) IFG (impaired fasting glucose) COVID Post-menopausal Wears glasses Alcohol use Arthritis Non-smoker Hypertension Home Medications ?Medication ?Instructions ?Recorded ?Last Taken ?Type multivitamin with folic acid 400 1 tab PO DAILY Unknown History mcg tablet (Thera) estradiol 0.01% (0.1 mg/gram) 1 appful vaginal TAYLOR 07/25 10/14 Unknown History vaginal cream lisinopril 20 1 tab PO BID 08/11/20 Unknow n History mg-hydrochlorothiazide 12.5 mg tablet cholecalciferol (vitamin D3) 25 25 mcg PO DAILY Unknown History mcg (1,000 unit) chewable tablet (Vitamin D3) THC GUMMY 1 gummy PO QHS PRN PRN insom pollo 01/14/25 Unknown History Allergy/AdvReac Type Severity Reaction Status Date / Time sulfamethoxazole (From Allergy Rash Verified 01/17/25 06:23 Bactrim) terbinafine (From Lamisil) Allergy Rash Verified 01/17/25 06:23 trimethoprim (From Bactrim) Allergy Rash Verified 01/17/25 06:23 Surgical History History of hysteroscopy Hx of colonoscopy Hx of repair of right rotator cuff Hx of right knee surgery History of open reduction and internal fixation (ORIF) procedure Social History Smoking Status: Never smoker Review of Systems (Anesthesia) ROS Narrative System reviewed and no additional complaints, except as documented. Physical Exam Const alert and oriented x3 Nutritional Appearance: obese Resp normal respiratory effort, normal air movement and clear to auscultation bilaterally Cardio regular rate, regular rhythm and no murmurs; Negative for diaphoretic
--- NOTE | 2025-01-17 07:15 | COLBX_PTH ---
PATIENT: MALICK IBRAHIM LOC: EN U#:[id number] AGE/SX: 59/F ROOM: RE01/17/[address]: Dr. Stephen Nelson DO : 1965 BED: DIS: 01/17/2025 SPEC #: [id number] RECD: 01/17/25 10:40 STATUS: ANDREA REEstrada #: [id number] KJ: 01/17/25 07:[address]: Stephen Nelson DEPT: SURGICAL PATHOLOGY RECD BY: Misael Wren ENTERED: 01/17/25 13:51 SP TYPE: COLON BX ALON DR: Dr. Nilesh Ritchie MD Tissues: A - SPLENIC FLEXURE B - Rectum, NOS Procedures: Surgery Specimen Level IV HEADER OPERATION: Colonoscopy with biopsy PRE-OP DIAGNOSIS: Positive colorectal cancer screening using Cologuard test TISSUE SUBMITTED: A- Splenic flexure polyp biopsy, B- Rectal polyp biopsy MICROSCOPIC DIAGNOSIS A. Large intestine, splenic flexure, polypectomy: * Polypoid colonic mucosa with lymphoid aggregate B. Rectum, polypectomy: * Colonic mucosa with focally dilated crypts and superficial hyperplastic features MICROSCOPIC DESCRIPTION Slides are reviewed. GROSS DESCRIPTION A. Received in fixative is one container labeled with the patient's name and designated Splenic flexure polyp biopsy. The specimen consists of one irregular fragment of goodman tissue that measures 0.2 x 0.5 x 0.2 cm. The specimen is totally submitted in one cassette. B. Received in fixative is one container labeled with the patient's name and designated Rectal polyp biopsy. The specimen consists of one irregular fragment of goodman tissue that measures 0.2 x 0.5 x 0.2 cm. The specimen is totally submitted in one cassette. [place] 01/17/2025 CPT:20645m4
--- NOTE | 2025-01-17 07:52 | OP.COLON_ITS ---
Patient Name: Radha Interiano Procedure Date: 01/17/2025 7:29 AM Date of : 1965 Age: 59 Procedure: Colonoscopy Indications: Screening for colorectal malignant neoplasm Providers: Stephen Nelson DO Referring MD: Vinnie Ritchie Medicines: Monitored Anesthesia Care Patient Profile: This is a 59 year old female. Refer to note in patient chart for documentation of history and physical. Last Colonoscopy: more than 10 years ago. Complications: No immediate complications. Procedure: Pre-Anesthesia Assessment: - Prior to the procedure, a History and Physical was performed, and patient medications and allergies were reviewed. The patient is competent. The risks and benefits of the procedure and the sedation options and risks were discussed with the patient. All questions were answered and informed consent was obtained. Patient identification and proposed procedure were verified by the physician in the pre-procedure area. Mental Status Examination: alert and oriented. Airway Examination: normal oropharyngeal airway and neck mobility. Respiratory Examination: clear to auscultation. CV Examination: normal. Prophylactic Antibiotics: The patient does not require prophylactic antibiotics. Prior Anticoagulants: The patient has taken no anticoagulant or antiplatelet agents except for NSAID medication. ASA Grade Assessment: II - A patient with mild systemic disease. After reviewing the risks and benefits, the patient was deemed in satisfactory condition to undergo the procedure. The anesthesia plan was to use monitored anesthesia care (MAC). Immediately prior to administration of medications, the patient was re-assessed for adequacy to receive sedatives. The heart rate, respiratory rate, oxygen saturations, blood pressure, adequacy of pulmonary ventilation, and response to care were monitored throughout the procedure. The physical status of the patient was re-assessed after the procedure. After I obtained informed consent, the scope was passed under direct vision. Throughout the procedure, the patient's blood pressure, pulse, and oxygen saturations were monitored continuously. The colonoscope was introduced through the anus and advanced to the cecum, identified by appendiceal orifice and ileocecal valve. The colonoscopy was performed without difficulty. The patient tolerated the procedure well. The quality of the bowel preparation was adequate. The ileocecal valve, appendiceal orifice, and rectum were photographed. Scope In: 7:37:54 AM Scope Withdrawal Time 0 hours 8 minutes 17 seconds Scope Out: 7:48:57 AM Total Procedure Duration Time 0 hours 11 minutes 3 seconds Findings: The perianal and digital rectal examinations were normal. Multiple small and large-mouthed diverticula were found in the recto-sigmoid colon, sigmoid colon, descending colon and hepatic flexure. Two sessile polyps were found in the rectum and splenic flexure. The polyps were 5 mm in size. These polyps were removed with a jumbo cold forceps. Resection and retrieval were complete. Verification of patient identification for the specimen was done. Estimated blood loss was minimal. Non-bleeding internal hemorrhoids were found during retroflexion. The hemorrhoids were Grade II (internal hemorrhoids that prolapse but reduce spontaneously). Impression: - Diverticulosis in the recto-sigmoid colon, in the sigmoid colon, in the descending colon and at the hepatic flexure. - Two 5 mm polyps in the rectum and at the splenic flexure, removed with a jumbo cold forceps. Resected and retrieved. - Non-bleeding internal hemorrhoids. Recommendation: - Repeat colonoscopy in 5 years for surveillance. - Continue present medications. Procedure Code(s): --- Professional --- 14001, Colonoscopy, flexible; with biopsy, single or multiple CPT copyright 2021 [employer]. All rights reserved. The codes documented in this report are preliminary and upon sales engineering manager review may be revised to meet current compliance requirements. Stephen Nelson DO 01/17/2025 7:52:32 AM This report has been signed electronically. Number of Addenda: 0 Note Initiated On: 01/17/2025 7:29 AM
--- NOTE | 2025-01-17 07:53 | OP.PROVAT_ITS ---
01/17/2025 Vinnie Ricthie [address] [place] [address] Re : Colonoscopy procedure for Radha Interiano Dear Dr. Ritchie This procedure was performed on Friday, January 17, 2025. My impressions and recommendations are as follows: Impressions : - Diverticulosis in the recto-sigmoid colon, in the sigmoid colon, in the descending colon and at the hepatic flexure. - Two 5 mm polyps in the rectum and at the splenic flexure, removed with a jumbo cold forceps. Resected and retrieved. - Non-bleeding internal hemorrhoids. Recommendations : - Repeat colonoscopy in 5 years for surveillance. - Continue present medications. My findings are described in the full procedure note, which is enclosed. If I can be of further assistance, please feel free to contact me at . Sincerely, Stephen Nelson, 01/17/2025 7:52:32 AM This report has been signed electronically.
--- NOTE | 2025-01-17 08:00 | PCM.POST.ANE ---
Anesthesia: Postop Eval I Current Vital Signs Temperature: 99 F Pulse Rate: 81 Blood Pressure: 113/69 Respiratory Rate: 16 Pulse Ox: 100 Oxygen Delivery Method: Room Air Assessment Airway patent: Yes Spontaneous unlabored respirations: Yes Mental status: Awake and Calm nausea: No Vomiting: No Anesthesia Complication: No Fluid Hydration Crystalloid volume administer (ml): 500 Total IV fluid infused: 500 Progress Note Anesthesia document: Postop Eval 1 completed: Yes
--- NOTE | 2025-01-17 08:05 | PCM.POSTANE2 ---
Anesthesia Postop Eval I Sum Postop Eval Completion status Anesthesia document: Postop Eval 1 completed: Yes Anesthesia Postop Eval I Summary Anesthesia Postop Eval I Summary: Anesthesia Postop Eval I: Assessment Summary Airway patent Yes 01/17/25 08:01 [email or web address] Spontaneous unlabored Yes 01/17/25 08:01 [email or web address] respirations Mental status Awake,Calm 01/17/25 08:01 [email or web address] nausea No 01/17/25 08:01 [email or web address] Vomiting No 01/17/25 08:01 [email or web address] Anesthesia Postop Eval I: Fluid Summary Crystalloid volume administer 500 01/17/25 08:01 [email or web address] (ml) Colloids volume administered ( ml) Blood Product volume administered (ml) Total IV fluid infused 500 01/17/25 08:01 [email or web address] Anesthesia Postop Eval I: Summary Notes Anesthesia Complication No 01/17/25 08:01 [email or web address] Anesthesia Complication Comment: Post-operative progress note Anesthesia: Postop Eval II Evaluation Mental status: Awake Pain Level: 0 nausea: No Vomiting: No Complications Anesthesia Complication: No
== END 2025-01-17 08:26 | disposition home or self-care (01) ==
LOC: EN 06:06 → AC 06:07
PROVIDERS: PCP Family Medicine; Referring Provider Family Medicine; Visit Provider Internal Medicine Gastroenterology
PROC: 0DJD8ZZ Inspection of Lower Intestinal Tract, Via Natural or Artificial Opening Endoscopic (ICD-10-PCS; CPT 45378; principal; 2025-01-17 07:10)
DX: Z12.11 Encounter for screening for malignant neoplasm of colon (principal); Z68.41 Body mass index [BMI] 40.0-44.9, adult; K57.30 Diverticulosis of large intestine without perforation or abscess without bleeding; I10 Essential (primary) hypertension; K62.1 Rectal polyp; K64.1 Second degree hemorrhoids; K63.5 Polyp of colon; E66.9 Obesity, unspecified
CPT/HCPCS: 45380; 88305; J2405